=== PATIENT | male | born 1980 | race Caucasian/White ===

== ENCOUNTER 2018-01-11 07:40 | Emergency (ER) | payer OTHER ==
--- NOTE | 2018-01-11 08:00 | EDPHY ---
H & P Stated Complaint: SOB Time Seen by Provider: 01/11/18 07:48 HPI/ROS: CHIEF COMPLAINT: Dyspnea HISTORY OF PRESENT ILLNESS: The patient has a history of thromboembolic disorder and ulcerative colitis. The patient is chronically anticoagulated but recently was bridged with Lovenox for colectomy week ago. The patient resumed his Pradaxa on Thursday. The patient has had 2 days of dyspnea. He denies pleuritic chest pain but given his history was referred to the ED for evaluation of possible pulmonary embolism. The patient denies asymmetric calf pain or swelling. The patient denies fever. The patient describes typical postoperative abdominal pain. REVIEW OF SYSTEMS: A comprehensive 10 point review of systems is otherwise negative aside from elements mentioned in the history of present illness. Source: Patient - Personal History Current Tetanus/Diphtheria Vaccine: Yes - Medical/Surgical History Hx Asthma: No Hx Chronic Respiratory Disease: No Hx Diabetes: No Hx Cardiac Disease: No Hx Renal Disease: No Hx Cirrhosis: No Hx Alcoholism: No Hx HIV/AIDS: No Hx Splenectomy or Spleen Trauma: No Other PMH: ANTI CARDIO LIPID SYNDROME, PROTHOMBIN GENE MUTATION, PE, COLOECTOMY - Social History Smoking Status: Never smoked - Physical Exam Exam: General Appearance: Alert, no distress Eyes: Pupils equal and round no pallor or injection ENT, Mouth: Mucous membranes moist Respiratory: There are no retractions, lungs are clear to auscultation Cardiovascular: Regular rate and rhythm Gastrointestinal: Surgical incisions are clean dry and intact Neurological: A&O, normal motor function, normal sensory exam, normal cranial nerves Skin: Warm and dry, no rashes Musculoskeletal: Neck is supple nontender Extremities: symmetrical, full range of motion, no clinical evidence of DVT Constitutional: Initial Vital Signs Temperature (C) 36.6 C 01/11/18 07:48 Heart Rate 93 01/11/18 07:48 Respiratory Rate 16 01/11/18 07:48 Blood Pressure 124/91 H 01/11/18 07:48 O2 Sat (%) 99 01/11/18 07:48 O2 Delivery Mode Room Air Allergies/Adverse Reactions: No Known Allergies Allergy (Unverified 01/11/18 07:47) Home Medications: Medication Instructions Recorded Pradaxa 01/11/18 Medical Decision Making - Diagnostics Imaging Results: CT angiogram chest: Images reviewed by myself and discussed with radiologist Dr. Jonah Helgans. Negative for PE, dissection, pneumonia or effusion. ED Course/Re-evaluation: The patient presents to the ED for evaluation of mild dyspnea. The patient was taken for CT pulmonary angiogram which demonstrates no evidence of a PE, pneumonia or effusion. Patient has no evidence of renal failure or critical anemia noted on his i-STAT. Vital signs in the ED are normal. This certainly possible the patient may be experiencing a very mild viral bronchitis. The patient will be given a albuterol inhaler to go home with. He is advised to return to the ED for markedly worsening symptoms or other concerns. Differential Diagnosis: Differential diagnosis considered includes asthma, bronchitis, pneumonia, pulmonary embolism, anemia, renal failure - Data Points Laboratory Results: 01/11/18 08:08 POC Hgb 12.6 gm/dL L gm/dL (13.7-17.5) POC Hct 37 % L % (40-51) POC Sodium 139 mEq/L mEq/L (135-145) POC Potassium 3.8 mEq/L mEq/L (3.3-5.0) POC Chloride 103 mEq/L mEq/L (97-110) POC BUN 13 mg/dL mg/dL (7-23) POC Creatinine 0.7 mg/dL mg/dL (0.7-1.3) POC Glucose 89 mg/dL mg/dL (70-100) Point of Care Test Results: Chemistry 01/11/18 08:08 POC Sodium 139 mEq/L mEq/L (135-145) POC Potassium 3.8 mEq/L mEq/L (3.3-5.0) POC Chloride 103 mEq/L mEq/L (97-110) POC BUN 13 mg/dL mg/dL (7-23) POC Creatinine 0.7 mg/dL mg/dL (0.7-1.3) POC Glucose 89 mg/dL mg/dL (70-100) ISTAT H&H 01/11/18 08:08 POC Hgb 12.6 gm/dL L gm/dL (13.7-17.5) POC Hct 37 % L % (40-51) Departure - Departure Disposition: Home, Routine, Self-Care Clinical Impression: Dyspnea Condition: Good Instructions: Dyspnea (ED) Additional Instructions: 1. Please use albuterol inhaler as needed for mild shortness of breath. 2. Return to the ED for markedly worsening symptoms or other concerns. 3. Your CT scan demonstrates no evidence of a blood clot, pneumonia or other pulmonary condition. Referrals: Maricarmen Leon MD [Primary Care Provider] - As per Instructions
[2018-01-11 08:11] VITALS: BP 123/76
[2018-01-11] MEDS ORDERED: IOPAMIDOL (ISOVUE 370) 100 ML BTL IV ONE (08:29)
== END 2018-01-11 09:39 | disposition home or self-care (01) ==
DX: R06.00 Dyspnea, unspecified (principal); Z86.718 Personal history of other venous thrombosis and embolism; Z90.49 Acquired absence of other specified parts of digestive tract; Z79.01 Long term (current) use of anticoagulants
CPT/HCPCS: 82435-PO; 82565-PO; 82947-PO; 84132-PO; 84295-PO; 84520-PO; 85014-PO; Q9967

== ENCOUNTER 2018-01-12 00:50 | Emergency (ER) | payer OTHER ==
[2018-01-12 00:55] VITALS: BP 105/71
--- NOTE | 2018-01-12 01:01 | EDPHY ---
H & P Stated Complaint: itching/swelling to penis since yesterday Time Seen by Provider: 01/12/18 01:01 HPI/ROS: HPI CHIEF COMPLAINT: Itching, redness, swelling to the head of the penis. HISTORY OF PRESENT ILLNESS: 37-year-old male, presents emergency room the noticed progressively worsening itching, redness, exam is mild swelling to the head of his penis the nose over the last 24-48 hours. He just had a recent colectomy performed at [facility]. He was in the hospital for 5 days. He was unable to shower for 4 days. He denies any urinary symptoms, denies dysuria, denies urinary frequency. Denies back pain, denies abdominal pain, denies fever. He does have some mild pain around his new ileostomy site. His main complaint is some mild redness, itching to the glans of his penis. Past Medical History: Ulcerative colitis Past Surgical History: This recent colectomy Social History: Denies drugs alcohol tobacco Family History: Noncontributory ROS REVIEW OF SYSTEMS: 10 Systems were reviewed and negative with the exception of the elements mentioned in the history of present illness. Exam Constitutional triage nursing summary reviewed, vital signs reviewed, awake/ alert. Eyes normal conjunctivae and sclera, EOMI, PERRLA. HENT normal inspection, atraumatic, moist mucus membranes, no epistaxis, neck supple/ no meningismus, no raccoon eyes. Respiratory clear to auscultation bilaterally, normal breath sounds, no respiratory distress, no wheezing. Cardiovascular rate normal, regular rhythm, no murmur, no edema, distal pulses normal. Gastrointestinal soft, non-tender, no rebound, no guarding, normal bowel sounds, no distension, no pulsatile mass. Genitourinary exam: Circumcised male, glans of the penis appears slightly erythematous, no significant swelling, no drainage or discharge, patient complains of itching. Shift of the penis normal. Urethral meatus is normal. Testicular region normal. Musculoskeletal no midline vertebral tenderness, full range of motion, no calf swelling, no tenderness of extremities, no meningismus, good pulses, neurovascularly intact. Skin pink, warm, & dry, no rash, skin atraumatic. Neurologic awake, alert and oriented x 3, AAOx3, moves all 4 extremities equally, motor intact, sensory intact, CN II-XII intact, normal cerebellar, normal vision, normal speech. Psychiatric normal mood/affect. Heme/Lymph/Immune no lymphadenopathy. Differential Diagnosis: Includes but is not limited to in a particular order balanitis, fungal infection, cellulitis Medical Decision Making: Plan for this patient will treat for fungal infection. Re-evaluation: Recommend the patient that he keep the area clean, warm soaks, and dried off completely. Additionally clotrimazole cream. Additionally return emergency room if there is worsening pain, swelling, redness, fever. I believe this to be a fungal infection of the glans of his penis. No evidence of cellulitis or abscess on exam. - Personal History Current Tetanus/Diphtheria Vaccine: Yes - Medical/Surgical History Hx Asthma: No Hx Chronic Respiratory Disease: No Hx Diabetes: No Hx Cardiac Disease: No Hx Renal Disease: No Hx Cirrhosis: No Hx Alcoholism: No Hx HIV/AIDS: No Hx Splenectomy or Spleen Trauma: No Other PMH: ANTI CARDIO LIPID SYNDROME, PROTHOMBIN GENE MUTATION, PE, COLOECTOMY - Social History Smoking Status: Never smoked Constitutional: Initial Vital Signs Temperature (C) 37.1 C 01/12/18 00:52 Heart Rate 99 01/12/18 00:52 Respiratory Rate 16 01/12/18 00:52 Blood Pressure 105/71 01/12/18 00:52 O2 Sat (%) 97 01/12/18 00:52 O2 Delivery Mode Room Air Allergies/Adverse Reactions: No Known Allergies Allergy (Verified 01/12/18 00:54) Home Medications: Medication Instructions Recorded Albuterol [Proventil Inhaler HFA 1 - 2 puffs IH Q4H #1 mdi 01/11/18 (*)] Pradaxa 01/11/18 Clotrimazole 1% [Lotrimin 1%] 12 gm TP BID #1 cream 01/12/18 Departure - Departure Disposition: Home, Routine, Self-Care Clinical Impression: Balanitis Condition: Good Instructions: Balanitis (ED) Additional Instructions: 1. Medication as prescribed 2. Follow up with her primary care doctor or urologist. 3. Return if worsening symptoms including worsening pain, swelling, fever. Referrals: Maricarmen Leon MD [Primary Care Provider] - As per Instructions Kerwin Oleary MD [Medical Doctor] - As per Instructions Prescriptions: Clotrimazole 1% [Lotrimin 1%] 12 gm TP BID #1 cream
== END 2018-01-12 01:30 | disposition home or self-care (01) ==
DX: N48.1 Balanitis (principal); Z90.49 Acquired absence of other specified parts of digestive tract

== ENCOUNTER 2018-06-19 09:02 | Inpatient (IN) | payer OTHER ==
[2018-06-19] MEDS ORDERED: NS 1,000 ML IV ONE ×2 (09:05→22:28)
[2018-06-19] MEDS ORDERED: HYDROmorphONE/DILAUDID 2 MG/ML INJ IVP ONE ×4 (09:05→12:57)
--- NOTE | 2018-06-19 09:07 | EDPHY ---
HPI/HX/ROS/PE/MDM Narrative: CHIEF COMPLAINT: Back pain HPI: The patient is a 38-year-old male with a history of ulcerative colitis and hyper coagulability status post a PE approximately 10 years ago. The patient states he has been in his usual state of health and awoke normally this morning. When he tried to get out of bed, he experienced severe pain in his low back, neck and thoracic spine. He describes this as excruciating and his states that he was in bed desperately trying to find a comfortable position with a high heart rate and breathing difficulties. The patient denies any recent fall or injury. Patient reports severe pain in this area as well as pain with any movement of his trunk including his arms. He states this feels somewhat similar to his prior pulmonary embolus. The patient is on Pradaxa. He received ketamine in route for pain. He states he has had a mild cold described as a runny nose without fever over the last several days. REVIEW OF SYSTEMS: Aside from elements discussed in the HPI, a comprehensive 10-point review of systems was reviewed and is negative. PMH: Includes prothrombin gene mutation, history of pulmonary embolus. History of ulcerative colitis status post 2 colectomies with current colostomy. SOCIAL HISTORY: . Denies drug abuse. PHYSICAL EXAM: General:Patient is alert, in no acute distress. He appears mildly sedated consistent with ketamine but alert. ENT:Eyes are normal to inspection. ENT inspection normal. Neck: Normal inspection. Full range of motion. Respiratory:No respiratory distress. Breath sounds normal bilaterally. Cardiovascular: Regular rate and rhythm. Strong peripheral pulses. Normal cap refill. Abdomen:The abdomen is nontender to palpation. There are no peritoneal signs. There are normal bowel sounds. Back: Normal to inspection. Diffuse tenderness to palpation of entire thoracic spine which seemed very hypersensitive. Severe pain is listed with even movement of right arm. Skin: Normal color. No rash. Warm and dry. Extremities: Normal appearance. Full range of motion. Neuro: Oriented x3. Patient states movement of bilateral arms causes excruciating pain, so unable to fully cooperate with detailed neuro exam. Denies numbness or hand weakness. MDM: This was a very unusual and complicated case. The patient apparently awoke this morning with spontaneous severe pain throughout his entire back which somewhat resembled prior PE. Initial workup revealed extremely high WBC suggesting possible infectious etiology. Given unusual story and acuity of complaints, I expanded workup to include CT of the entire spine as well as chest and abdomen, primarily looking for PE, bleeding or infectious source. This surprisingly revealed multiple acute fractures, including right acetabulum and pelvis, as well as thoracic spine, but not c-spine. Immediately upon receiving these results I spoke to the patient and his and re-inquired about possible trauma. Despite extensive questioning, they adamantly deny any possibility of recent fall or trauma, and question whether these fractures are either old or could be caused by repetitive stress over time. I informed them that the injury pattern strongly suggests recent trauma but they are unaware of how this could be the case. I consulted Dr. Nelson from Orthopedics as well as Dr. Barajas from the hospitalist service. I would typically consult Trauma Surgery for a similar case, but patient's adamant denial of any recent trauma places me in a confusing situation. Dr. Nelson was able to elicit bilateral upper extremity weakness on his exam so I have ordered MRI of the cervical and thoracic spine. Given elevated WBC and pain, I think we need to exclude discitis etc. Patient admitted to hospitalist service with these results still pending. - Data Points Imaging Results: Imaging Impressions Chest X-Ray 06/19/18 09:05 Impression: Negative. Laboratory Results: Laboratory Results 06/19/18 09:05 06/19/18 09:05 06/19/18 06/19/18 06/19/18 09:08 09:08 09:05 WBC RBC Hgb POC Hgb 14.3 gm/dL gm/dL (13.7-17.5) Hct POC Hct 42 % % (40-51) MCV MCH MCHC RDW Plt Count MPV Neut % (Auto) Lymph % (Auto) Phelps % (Auto) Eos % (Auto) Baso % (Auto) Nucleat RBC Rel Count Absolute Neuts (auto) Absolute Lymphs (auto) Absolute Monos (auto) Absolute Eos (auto) Absolute Basos (auto) Absolute Nucleated RBC Immature Gran % Immature Gran # Platelet Estimate POC Sodium 142 mEq/L mEq/L (135-145) Sodium 138 mEq/L mEq/L (135-145) POC Potassium 3.8 mEq/L mEq/L (3.3-5.0) Potassium 4.3 mEq/L mEq/L (3.5-5.2) POC Chloride 106 mEq/L mEq/L (97-110) Chloride 105 mEq/L mEq/L (97-110) Carbon Dioxide 18 mEq/l L mEq/l (22-31) POC Total CO2 17 mEq/L L mEq/L (22-31) Anion Gap 15 mEq/L H mEq/L (6-14) POC BUN 8 mg/dL mg/dL (7-23) BUN 10 mg/dL mg/dL (7-23) Creatinine 1.0 mg/dL mg/dL (0.7-1.3) POC Creatinine 1.0 mg/dL mg/dL (0.7-1.3) Estimated GFR > 60 Glucose 125 mg/dL H mg/dL (70-100) POC Glucose 135 mg/dL H mg/dL (70-100) Calcium 9.7 mg/dL mg/dL (8.5-10.4) POC Troponin I 0.03 ng/mL ng/mL (0.00-0.08) 06/19/18 09:05 WBC 24.59 10^3/uL H 10^3/uL (3.80-9.50) RBC 5.49 10^6/uL 10^6/uL (4.40-6.38) Hgb 12.3 g/dL L g/dL (13.7-17.5) POC Hgb Hct 40.8 % % (40.0-51.0) POC Hct MCV 74.3 fL L fL (81.5-99.8) MCH 22.4 pg L pg (27.9-34.1) MCHC 30.1 g/dL L g/dL (32.4-36.7) RDW 15.6 % H % (11.5-15.2) Plt Count 321 10^3/uL 10^3/uL (150-400) MPV 10.4 fL fL (8.7-11.7) Neut % (Auto) Pending Lymph % (Auto) Pending Phelps % (Auto) Pending Eos % (Auto) Pending Baso % (Auto) Pending Nucleat RBC Rel Count Pending Absolute Neuts (auto) Pending Absolute Lymphs (auto) Pending Absolute Monos (auto) Pending Absolute Eos (auto) Pending Absolute Basos (auto) Pending Absolute Nucleated RBC Pending Immature Gran % Pending Immature Gran # Pending Platelet Estimate Pending POC Sodium Sodium POC Potassium Potassium POC Chloride Chloride Carbon Dioxide POC Total CO2 Anion Gap POC BUN BUN Creatinine POC Creatinine Estimated GFR Glucose POC Glucose Calcium POC Troponin I Medications Given: Discontinued Medications Hydromorphone HCl (Dilaudid) 1 mg IVP EDNOW ONE Stop: 06/19/18 09:06 Last Admin: 06/19/18 09:13 Dose: 1 mg Sodium Chloride (Ns) 1,000 mls @ 0 mls/hr IV EDNOW ONE; Wide Open PRN Reason: Protocol Stop: 06/19/18 09:06 Last Admin: 06/19/18 09:13 Dose: 1,000 mls Point of Care Test Results: Chemistry 06/19/18 06/19/18 09:08 09:08 POC Sodium 142 mEq/L mEq/L (135-145) POC Potassium 3.8 mEq/L mEq/L (3.3-5.0) POC Chloride 106 mEq/L mEq/L (97-110) POC Total CO2 17 mEq/L L mEq/L (22-31) POC BUN 8 mg/dL mg/dL (7-23) POC Creatinine 1.0 mg/dL mg/dL (0.7-1.3) POC Glucose 135 mg/dL H mg/dL (70-100) POC Troponin I 0.03 ng/mL ng/mL (0.00-0.08) ISTAT H&H 06/19/18 09:08 POC Hgb 14.3 gm/dL gm/dL (13.7-17.5) POC Hct 42 % % (40-51) General Initial Vital Signs: Initial Vital Signs Temperature (C) 36.9 C 06/19/18 09:05 Heart Rate 110 H 06/19/18 09:05 Respiratory Rate 18 06/19/18 09:05 Blood Pressure 109/70 06/19/18 09:05 O2 Sat (%) 89 L 06/19/18 09:05 O2 Delivery Mode Nasal Cannula O2 (L/minute) 2 Allergies/Adverse Reactions: No Known Allergies Allergy (Verified 06/19/18 09:05) Home Medications: Medication Instructions Recorded Dabigatran Etexilate Mesylate 75 mg PO BID 01/11/18 [Pradaxa] Acetaminophen [Tylenol 325mg (*)] 650 mg PO Q6 PRN 06/19/18 Albuterol [Proventil Inhaler HFA 1 - 2 puffs IH Q4H PRN 06/19/18 (*)] Multivitamins [Multivitamin (*)] 1 each PO DAILY 06/19/18 Departure - Departure Disposition: [facility]
[2018-06-19] MEDS ORDERED: IOPAMIDOL (ISOVUE 370) 100 ML BTL IV ONE (10:11)
[2018-06-19] MEDS ORDERED: ALBUTEROL 60 PUFFS/8 GM MDI IH PRN (14:44)
[2018-06-19] MEDS ORDERED: ACETAMINOPHEN 325 MG TAB PO PRN ×2 (14:44→14:46)
[2018-06-19] MEDS ORDERED: ONDANSETRON 4 MG/2 ML VIAL IVP PRN (14:46)
[2018-06-19] MEDS ORDERED: ONDANSETRON DISINTEGRATING 4 MG TAB PO PRN (14:46)
--- NOTE | 2018-06-19 14:48 | CPEKG ---
Test Reason : OPEN Blood Pressure : / mmHG Vent. Rate : 095 BPM Atrial Rate : 095 BPM P-R Int : 133 ms QRS Dur : 091 ms QT Int : 338 ms P-R-T Axes : 033 -18 007 degrees QTc Int : 425 ms Sinus rhythm Borderline left axis deviation Confirmed by Elias Sheldon ([id number]) on 06/19/2018 2:48:14 PM Referred By: Elias Shledon Confirmed By:Elias Sheldon
[2018-06-19] MEDS ORDERED: NS 1,000 ML IV SCH (15:00)
[2018-06-19] MEDS: OXYCODONE/APAP 5/325 TAB PO PRN (15:21)
--- NOTE | 2018-06-19 16:03 | GHP ---
[f rep st] HISTORY AND PHYSICAL DATE OF ADMISSION: 06/19/2018 The patient is a 38-year-old gentleman a history of ulcerative colitis status post total colectomy th is fall with ostomy placement, as well as history of pulmonary embolism secondary to prothrombin gene mutation, who presents to the hospital with leg pain. 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 In fact, yesterday was his first day doing it. He has an uppe r respiratory infection, he presumes is secondary to his children. He took some NyQuil overnight. Dieter carranza woke up this morning and had excruciating pain. At first, it was unclear as to what had happened, but after some repeated questions, it sounds like his heard a bump up stairs and found him backw ards in the bed, and the assumption is that he had made a fall. The patient does not have a previous diagnosis of osteoporosis, although he has had a bone mineral de nsity study in [place] in the past, a couple of years ago. He was not prescribed medicines for this. He had ulcerative colitis for about 10 years prior to his colectomy and suspects that he had about 8 years of that he was actually on steroid, sometimes as high as 80 mg of prednisone a day. He has not had drenching night sweats or fever. He has some pain limiting his ability to abduct his arms. He does not use injection drugs. He has not had a rash on his skin. He has not had bowel or bladder incontinence but he has an ostomy, and he has not had bladder incontinence. REVIEW OF SYSTEMS: Complete 10-point review of systems conducted, negative except as noted in the HP I. PAST MEDICAL HISTORY: 1. Prothrombin gene mutation. 2. PE x1. 3. Total colectomy for ulcerative colitis. 4. Ulcerative colitis. 5. Suspected adrenal insufficiency. 6. Osteoporosis. ALLERGIES: No known drug allergies. MEDICATIONS: Pradaxa, Tylenol, albuterol. SOCIAL HISTORY: Originally from [place]. Rare alcohol. No tobacco. PHYSICAL EXAM: VITAL SIGNS: Temp 37.7, blood pressure 112/72, pulse 93, breathing 16 times a minute , 98% on 2 L. GENERAL: No acute distress. HEENT: Sclerae anicteric. Oropharynx clear. Mucous me mbranes moist. NECK: Supple. No lymphadenopathy or JVD. LUNGS: Clear to auscultation bilaterally . HEART: S1, S2. ABDOMEN: Soft, nontender. There is an ostomy that is clean, dry, and intact. T he bag is opaque. I cannot see a stool. EXTREMITIES: Lower extremities without edema. Calves nont perico. SKIN: Without rash. NEUROLOGIC: He has weakness with abduction, it is unclear if it is flores ited by pain. It seems a little bit more like weakness. Vitals addendum: The patient is now afebrile at 38.4. LABS: White count 24.6, hematocrit 40.8, MCV is low at 74.3, platelets are 242. Sodium 138, potassi um 4.3, chloride 105, bicarb 18, anion gap slightly elevated at 15, BUN 10, creatinine 1.0, glucose 1 25. Influenza negative. CTA shows no PE, possible early basilar pneumonia, left greater than right versus dependent lung greco ges. Left lower ground-glass nodule. Abdominal CT is unremarkable. He has a renal cyst and evidenc e of an ostomy. Chest x-ray interpreted by me shows clear lungs. Cervical spine CT, nothing acute in the cervical spine, indeterminate T4-T5 compression fractures. I discussed the case with Dr. Patel Sheldon. ASSESSMENT/PLAN: A 38-year-old gentleman presents with a fall, acetabular fracture, pubic ramus frac ture, fever, possible pneumonia, and upper extremity weakness. 1. Fever and upper extremity weakness. This is concerning for possible epidural abscess versus disk itis. The patient looks a little better than these patients look, but a CT with and without contrast has been ordered and I will have Neurosurgery see him. 2. T4-T5 compression fractures. These are acute and painful. Will have Neurosurgery see him. 3. Question pneumonia. I do not believe this patient has pneumonia. Fever is noted. Will send an upper respiratory viral panel and follow. 4. History of pulmonary embolism. We are going to hold his Pradaxa in case he needs a needle based procedure. 5. Acetabular fracture. These are typically nonoperative. He is seen by Orthopedics. 6. Osteoporosis. He has osteoporosis, history of calcium, vitamin D, TSH, testosterone, PTH. 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 7. Question sepsis. I will check a lactate given his fever. 8. Disposition. Inpatient status. 9. Microcytic anemia. Will check iron studies. 10. Prophylaxis. I assume we will be resuming his Pradaxa. Otherwise, will have to think about wilfredo ous thromboembolism prophylaxis. Nothing overnight. /[id number]/MODL
--- NOTE | 2018-06-19 16:26 | PDMN ---
Medical Necessity Medical necessity: MCG M63 Back Pain, A-1 day: 38 yo w/ leg/back pain s/p fall - eval reveals acetabular fx, pubic ramus fx, T4-T5 compression fx, fever, possible pneumonia and upper extremity weakness. Concern for possible epidural abscess vs diskitis. Neurosurg consult ordered. Pt w/ WBC 24, tachy, fever, hypoxic 89% RA, placed on 2L to keep O2 sats>90%. Resp panel pending. Anticipate>2MN for ongoing monitoring and tx of the above. IP status w/ med nec for back pain w/ suspected spinal infection, neurologic abnormalities, additional medical issues and comorbidities. Hx Prothrombin gene mutation, PE, total colectomy w/ ostomy placement last year for ulcerative colitis, suspected adrenal insufficiency, osteoporosis
[2018-06-19] MEDS ORDERED: HYDROmorphONE/DILAUDID 1 MG/ML INJ IVP ONE (16:29)
[2018-06-19] MEDS ORDERED: GADOBUTROL 10 ML VIAL IVP ONE (16:54)
[2018-06-19] MEDS: CHOLECALCIFEROL VIT D3 2,000 UNITS TAB/CAP PO SCH (18:00)
[2018-06-19] MEDS: HYDROmorphONE/DILAUDID 1 MG/ML INJ IVP PRN (18:47)
[2018-06-19] MEDS ORDERED: KETOROLAC 15 MG/1 ML SDV IVP ONE (21:48)
--- NOTE | 2018-06-19 21:51 | HOSPPROG ---
Hospitalist Progress Note Assessment/Plan: Patient seen after imaging - all was discussed wtih him. He is febrile again. Coronavirus + on resp PCR will give a dose of Toradol for fever and myalgias; risks and benefits discussed with patient including bleeding on pradaxa Objective: Vital Signs Temp Pulse Resp BP Pulse Ox 38.0 C 98 16 83/58 L 96 06/19/18 20:00 06/19/18 20:00 06/19/18 20:00 06/19/18 20:00 06/19/18 20:00 Microbiology 06/19/18 15:25 Respiratory Panel (PCR) - Final Nasal, Sinus - Swab Coronavirus 229E Detected 06/18/18 06/19/18 06/20/18 05:59 05:59 06:59 Intake Total 0 Balance 0 ICD10 Worksheet Patient Problems: Problems Problem Status Onset Fever Acute
[2018-06-20] MEDS: OXYCODONE/APAP 5/325 TAB PO PRN ×4 (00:29→18:17)
[2018-06-20] MEDS: HYDROmorphONE/DILAUDID 1 MG/ML INJ IVP PRN ×3 (03:46→19:51)
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
[2018-06-20 05:36] LABS: PLATELET COUNT 190 10^3/uL (150-400)
[2018-06-20] MEDS: CHOLECALCIFEROL VIT D3 2,000 UNITS TAB/CAP PO SCH (08:13)
[2018-06-20] MEDS: MULTIVITAMINS 1 EACH TAB PO SCH (08:15)
--- NOTE | 2018-06-20 10:45 | HOSPPROG ---
Hospitalist Progress Note Assessment/Plan: Fever likely 2/2 viral URI - no e/o epidural abscess on MRI. CXR w/o infiltrate (pers reviewed/interpreted). CTA showed possible early left basilar PNA, no PE. -check PCT -cont to observe off atbx -supportive care Hypoxemia 2/2 above - 1 LPM -wean O2 as able Acetabular fracture - discussed with Dr. Nelson, tx is non-operative, NWB x3 months. He is at risk for arthritis long-term. C5-6 disc herniation with cord compression with UE weakness - neurosurgery to see, discussed with Nuris HIDALGO Osteoporosis - likely 2/2 senior living steroid use, note T4-5 and L4 compression fracture - as above, neurosurgery will evaulate -recommend outpt podiatrist assistant PE 2/2 prothrombin gene mutation - holding pradaxa as may warrant procedure given above -resume pradaxa when clear no procedures planned UC s/p colectomy - colostomy care Microcytic anemia - no e/o active bleeding, iron stores low, could be residual from symptomatic UC, which has since resolved. Also possibly dilutional component. -pradaxa currently held -start oral iron -hemoccult stool, outpt GI f/u -follow daily H&H Full code Dispo - cont inpt Subjective: PT complains of pain in arm and hip. Unable to lift his arms b/l. THinks he fell out of bed, had taken benadryl to sleep, heard a thud, but he doesn't recall what happened, woke up tangled on floor. He also developed a fever. Imaging negative for epidural abscess, he has a viral URI. No cough. No fevers overnight. NO CP or SOB. Objective: Vital Signs Temp Pulse Resp BP Pulse Ox 36.8 C 90 16 98/55 L 97 06/20/18 07:50 06/20/18 07:50 06/20/18 07:50 06/20/18 07:50 06/20/18 07:50 Microbiology 06/19/18 15:25 Respiratory Panel (PCR) - Final Nasal, Sinus - Swab Coronavirus 229E Detected Laboratory Results 06/20/18 04:52 06/20/18 04:52 06/19/18 06/20/18 06/21/18 04:59 05:59 05:59 Intake Total 1000 Output Total Balance 1000 - Physical Exam Constitutional: no apparent distress Eyes: PERRL Ears, Nose, Mouth, Throat: moist mucous membranes Cardiovascular: regular rate and rhythym Respiratory: no respiratory distress, clear to auscultation Gastrointestinal: normoactive bowel sounds, soft, non-tender abdomen Skin: warm Musculoskeletal: other (b/l proximal UE weakness c/w C5-6 disc ) Neurologic: AAOx3 Psychiatric: interacting appropriately ICD10 Worksheet Patient Problems: Problems Problem Status Onset Fever Acute
--- NOTE | 2018-06-20 12:01 | ASMTCMCOM ---
CM Note CM Note Notes: Patient chart reviewed for discharge planning purposes. 38 year old male with history of ulcerative colitis. Questionable s/p fall and left leg pain. Lives with . CM to follow for needs. Plan: TBD Date Signed: 06/20/2018 12:00 PM Electronically Signed By:Ruth Napoles RN
--- NOTE | 2018-06-20 12:20 | NEUSURGPN ---
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 Recommend arterial and central line placement. -Discussed plan with patient and , they both agree with the plan and all questions answered -Will start Gabapentin for neuropathic pain Patient discussed with Dr Dukes as well Subjective: Unable to raise arms, bilateral arm pain Objective: AxOx4 5/5 BLE 2/5 BUE Deltoids, biceps 4/5 bilateral check airman 4/5 bilateral intrinsics Positive hoffmans bilateral BR, knee, ankle reflexes 4+ Neuro Check Frequency: per routine Urinary Catheter in Place: No - Physician Discussed Patient with Dr.: Dukes Neurosurgery Physical Exam - Vitals, I&O, Labs I and O 06/19/18 06/20/18 06/21/18 04:59 05:59 05:59 Intake Total 1000 Output Total 400 Balance 600 Weight Intake: Oral (ml) IV Intake (ml) 1000 Output: Urine (ml) 200 Urinal 200 Liquid Stool (ml) 200 Colostomy 200 Other: Intake Quantity Sufficient Number of Voids Urinal 1 Microbiology 06/19/18 15:25 Respiratory Panel (PCR) - Final Nasal, Sinus - Swab Coronavirus 229E Detected Vital Signs Temp Pulse Resp BP Pulse Ox 36.9 C 97 16 88/49 L 97 06/20/18 12:00 06/20/18 12:00 06/20/18 12:00 06/20/18 12:00 06/20/18 12:00 Laboratory Results 06/20/18 04:52 06/20/18 04:52 ICD10 Worksheet Patient Problems: Problems Problem Status Onset Fever Acute
[2018-06-20] MEDS: FERROUS SULFATE 325 MG TAB PO SCH (12:25)
--- NOTE | 2018-06-20 13:36 | SOAPPROG ---
SOAP Progress Note Assessment/Plan: Assessment:R acetabular fx -etiology and mechanism still unclear -will be treated for central cord syndrome by nsgy team Plan: -strict NWB RLE -PT/OT -pain ctrl -DVT prophy -he should f/u with me 2-3 wks after discharge 06/20/18 13:35 Subjective: R hip pain at baseline. Seen by nsgy this am. Objective: Vital Signs Temp Pulse Resp BP Pulse Ox 36.9 C 97 16 88/49 L 97 06/20/18 12:00 06/20/18 12:00 06/20/18 12:00 06/20/18 12:00 06/20/18 12:00 Microbiology 06/19/18 15:25 Respiratory Panel (PCR) - Final Nasal, Sinus - Swab Coronavirus 229E Detected Laboratory Results 06/20/18 04:52 06/20/18 04:52 06/19/18 06/20/18 06/21/18 04:59 05:59 05:59 Intake Total 1000 Output Total 400 Balance 600 RLE -pain with log roll ICD10 Worksheet Patient Problems: Problems Problem Status Onset Fever Acute
[2018-06-20] MEDS: GABAPENTIN 300 MG CAP PO SCH ×3 (14:57→21:38)
[2018-06-20] MEDS: ACETAMINOPHEN 500 MG TAB PO SCH ×2 (14:57→21:37)
--- NOTE | 2018-06-20 15:05 | GPN ---
[f rep st] PROCEDURE NOTE DATE OF PROCEDURE: 06/20/2018 ANESTHESIA: Local. PREPROCEDURE DIAGNOSIS: Cord compression requiring pressors. POSTPROCEDURE DIAGNOSIS: Cord compression requiring pressors. NAME OF PROCEDURE: Left radial arterial line placement. ESTIMATED BLOOD LOSS: 5 cc. SPECIMENS: None. INDICATIONS: Tano Briggs is a 38-year-old who is requiring pressors for a central cord. DESCRIPTION OF PROCEDURE: The patient was in the ICU. I tried to access the right radial artery, even under ultrasound guidance on the right wrist. I did access it, but was unable to thread the wire easily. I then moved to the left wrist and prepped this. I accessed the artery on the second attempt, with pulsatile return of blood flow. I threaded the wire easily. I passed the catheter over the wire and removed the wire. This was connected to the arterial line with excellent waveform and sutured into place. A sterile dressing was applied. /[id number]/MODL MTDD
[2018-06-20] MEDS: NOREPINEPHRINE BITARTRATE 4 MG in NS 500 ML IV SCH ×2 (16:00→18:23)
--- NOTE | 2018-06-20 20:56 | GCON ---
[f rep st] CONSULTATION INPATIENT CONSULTATION DATE OF CONSULTATION: 06/20/2018 CHIEF COMPLAINT: Bilateral upper extremity weakness, right leg pain. 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 The patient also has a history of a pulmonary embolism just secondary to a prothrombin gene mutation. The patient recently changed his shift at his work and took some NyQuil to sleep on Thursday night. Patient reportedly fell out of bed, where his found him on the floor, got up and got himself back into bed, but was experiencing terrible pain. Patient presented to the emergency room with bilateral upper extremity weakness as well as low back and right leg pain. The patient underwent imaging of the thoracic and cervical spine as well as CT of the abdomen, which showed a compression fracture at T4 and T5 and L4. Currently the patient complains of acute weakness in his bilateral upper extremities, mostly affecting his deltoids and biceps, with bilateral equal pain in his deltoids. The patient states he had no difficulty with walking or balance prior to being placed on nonweightbearing for right acetabular fracture finding. The patient denies any lower extremity symptoms other than some pain in his right leg. Denies any changes in his bladder habits. The patient has an ostomy in place. REVIEW OF SYSTEMS: A 10-point review of systems was performed and negative aside from what was mentioned in HPI. PAST MEDICAL HISTORY: 1. Prothrombin gene mutation. 2. PE x1 ten years ago. 3. Ulcerative colitis. 4. Likely undiagnosed osteoporosis. ALLERGIES: Patient has no known drug allergies. MEDICATIONS: Pradaxa and a multivitamin. PAST SURGICAL HISTORY: Left hand surgery for fracture, vasectomy, left retinal detachment, and colectomy for ulcerative colitis and ostomy placement. FAMILY HISTORY: Both mother and father are alive. Mother has some mental illnesses including depression, bipolar, and schizophrenia. Father has arthritis. 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 He is with 1 child, age of 8. He has never used nicotine products. He rarely drinks alcohol and denies any illicit drug use. LABORATORY RESULTS: White blood cell count is 15.23, hematocrit 29.5, hemoglobin is 8.8, platelets are 190. Sodium 134, potassium 4.2, BUN 10, creatinine 0.8, glucose is 101. IMAGING: CT of the cervical spine performed on June 19, 2018, demonstrates nothing acute identified in the cervical spine with indeterminate age of a T4 and T5 compression fracture. CT of the abdomen from June 19, 2018, demonstrates no pulmonary embolic disease, possible early basilar pneumonia, left greater than right, versus dependent lung changes. Small left lower lobe nodule. Acute appearing multiple right acetabular nondisplaced fractures. The right femoral head and neck are intact and normally located. There is a nondisplaced vertical fracture coursing through the lateral most portion of the right superior pubic ramus. There is an old severe compression deformity of L4. MRI of the cervical spine performed on June 19, 2018, demonstrates a congenitally small canal with a central disk herniation at C5-6 with moderate canal stenosis and cord compression. At C4-5 there is mild diffuse disk bulge without richard herniation with borderline canal stenosis with effacement of the subarachnoid space and minimal flattening of the cervical cord. C6-7 there is a diffuse disk bulge eccentric toward the left resulting in mild canal stenosis , flattening of the cord, minimal impingement of the left lateral recess. MRI of the thoracic spine performed June 19, 2018, demonstrates no intrinsic abnormality of the thoracic cord, no significant disk herniation or cord compression. PHYSICAL EXAM: VITAL SIGNS: Blood pressure is 95/54, heart rate is 97, respiratory rate 16, oxygen saturations 97% on room air, temperature is 36.9 degrees Celsius. HEENT: Head is normocephalic and atraumatic. Pupils are equal, round, and reactive to light. EOMIs intact. Full visual balbuena by confrontation. RESPIRATORY: Deferred. CARDIAC: Deferred. ABDOMEN: Ostomy in place. GENITOURINARY: Deferred. RECTAL: Deferred. NEUROLOGIC: The patient is awake and alert and oriented to name, place, location, date, time, and situation. His memory is intact to immediate past and current events speech. No aphasia or dysphonia. Cranial nerves 2-12 are grossly intact. Motor: Patient has 5/5 strength in all muscle groups of the lower extremities to include iliopsoas, which is limited on the right due to fracture, which includes iliopsoas, quadriceps, hamstrings, plantar flexion, dorsiflexion, EHL testing. Left lower extremity is 5/5 throughout bilateral upper extremity motors. Patient has 2/5 in his bilateral deltoids and biceps, 4/5 bilateral respiratory therapy director strength, 4/5 bilateral intrinsic strength. The patient has wrist flexion and extension 4/5. The patient has positive Della sign bilaterally. Reflexes: Brachioradialis, knee jerk, and ankle jerks are 4+. Sensation is grossly intact to light touch through all dermatomal distributions of bilateral extremities. ASSESSMENT AND PLAN: The patient is a 38-year-old gentleman, who presented to the emergency room yesterday with bilateral upper extremity pain and weakness. The patient reportedly fell out of bed on Thursday night, was found on the floor by his , and at that time went back to bed. He has acture bilateral upper extremity weakness which is most pronounced in his biceps and triceps. MRI of the cervical spine demonstrates a congenitally narrow canal with moderate central stenosis at C5-6 and mild to moderate stenosis at C4-5. The patient has a right acetabular fracture, which does not require surgical intervention and has been placed in nonweightbearing status for the next few weeks. Patient has chronic appearing compression fractures involving the T4 and T5 and T11 vertebrae, as well as an old severe compression deformity of L4. The patient has mild lower back pain and right leg pain is likely attributed to his hip fracture. We do not recommend bracing at this time for these chronic appearing compression deformities. We recommend transferring the patient to the intensive care unit where he can have a central line placed and arterial line in an effort to keep maps greater than 85. The patient has signs and symptoms of a mild central cord syndrome. Dr. Dukes spoke with the patient and his about surgical intervention if needed. Surgery would entail a C4-5, C5-6 laminoplasty, which could also be done prophylactically due to his congenitally narrowed canal. We recommend continuing to hold Pradaxa until surgical plan is established. Okay to start deep venous thrombosis prophylaxis with subcu heparin, which I will order. The patient was discussed with Dr. Higthower as well as Orthopedics, who both agree with the plan. I discussed the plan and reviewed images with patient and his at the bedside, who both agree, and all questions were answered. The patient was seen and examined at the bedside by neurosurgical services on June 20, 2018, at 10:45 a.m. /[id number]/MODL MTDD
--- NOTE | 2018-06-20 21:06 | GCON ---
[f rep st] CONSULTATION PULMONARY CRITICAL CARE CONSULTATION DATE OF CONSULTATION: 06/20/2018 REASON FOR CONSULTATION: Intensive care unit evaluation and management of central cord compression. HISTORY: The patient is a very pleasant 38-year-old gentleman with a history of ulcerative colitis and chronic steroid therapy. He also has a history of pulmonary embolic disease secondary to a prothrombin gene mutation. He was admitted on 06/19. He apparently fell last night and awoke with significant pain. He came to the emergency department. He was found to have an acetabular and pelvic fracture as well as a fracture of the glenoid process of the right shoulder. More significant was neck pain and bilateral weakness of the upper extremities associated with congenital narrowing of his cervical canal and a herniated disk at C5-6 resulting in some cord compression. He was seen by Neurosurgery. They recommended admission to the intensive care unit, placement of an arterial line and central line for pressor therapy to keep mean arterial pressures 85 or above. An arterial line and central line have been placed. Norepinephrine has been started. The patient complains of bilateral upper extremity weakness. He is more limited on the right secondary to his fracture and pain, than he is on the left. He denies weakness, numbness or tingling of the lower extremities. He does have some pelvic pain on movement. PAST MEDICAL HISTORY: Remarkable for a long history of ulcerative colitis. He was on steroids for a number of years, and is osteoporotic secondary to that. He is status post total colectomy. He has a history of a prothrombin gene mutation, and was on Pradaxa prior to admission. There is also history of mild asthma, for which he takes albuterol. DRUG ALLERGIES: No known drug allergies. 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 Alcohol and tobacco are negative. FAMILY HISTORY: Noncontributory. REVIEW OF SYSTEMS: Negative, except as mentioned above. PHYSICAL EXAMINATION: GENERAL: Reveals a very pleasant gentleman who is lying in bed. He appears comfortable. VITAL SIGNS: Blood pressure is 150/65 with a MAP of 93. Pulse is 90, with sinus rhythm on the monitor. Oxygen is in place at 2 L. Respiratory rate is 16. He is afebrile. CVP is 7. HEENT: Unremarkable for lymphadenopathy or thyromegaly. CHEST: Clear bilaterally. HEART: Regular in rate and rhythm, without significant murmur or gallop. ABDOMEN: Soft, nontender. Bowel sounds are present. EXTREMITIES: Unremarkable for edema or cords. NEUROLOGIC: Examination is remarkable for upper extremity weakness. DATABASE: Multiple radiologic studies are as outlined above in the HPI. Laboratory: White blood cell count is 15,000. Hematocrit 29.5, down from 40, yesterday. Platelets are 190,000. Sodium is 134, potassium 4.2, BUN 10, with a creatinine of 0.8. Glucose is 101, calcium 7.7. Procalcitonin is mildly elevated at 0.5. Influenza A/B was negative. Stool for occult blood is negative. Respiratory panel was positive for coronavirus. ASSESSMENT: 1. Cord compression secondary to congenital narrowing and C5-6 disk herniation. Blood pressures are being driven up for mean arterial pressures greater than 85. Neurosurgery is following. Cervical surgery may or may not be needed per Neurosurgery. 2. Status post fall, with pelvic fracture and right shoulder fracture: This seems to be related to osteoporosis secondary to previous chronic steroid therapy. 3. History of ulcerative colitis, colectomy. 4. Anemia: He did drop his hematocrit from 40 to approximately 30. The reason for this is unclear, perhaps secondary to IV fluids and dilutional issues/ equilibration. There is no evidence of active bleeding. Hematocrit will be followed. 5. History of prothrombin gene mutation: He was on full-dose anticoagulation with Pradaxa. This is contraindicated currently. Subcu heparin is felt to be acceptable by Neurosurgery, and has been initiated. 6. History of mild asthma: No wheezing, no evidence of an exacerbation. PLAN AND RECOMMENDATIONS: Patient will be kept in the intensive care unit. Blood pressures will be followed. Norepinephrine will be continued for MAPs greater than 85. Appropriate pain control will be given. Prophylactic heparin will be continued. Albuterol can be used as needed. Laboratory will be followed. Further plans and recommendations will be made based on his progress over the next 12 to 24 hours. /[id number]/MODL and [id number]/MODL MTDD
--- NOTE | 2018-06-20 21:21 | GOP ---
[f rep st] OPERATIVE REPORT DATE OF OPERATION: 06/20/2018 SURGEON: Khadra Villarreal MD ANESTHESIA: Local. PREOPERATIVE DIAGNOSIS: Central cord requiring pressors. POSTOPERATIVE DIAGNOSIS: Central cord requiring pressors. PROCEDURE PERFORMED: Right ultrasound-guided internal jugular central line placement. FINDINGS: Central line in correct position. SPECIMENS: None. ESTIMATED BLOOD LOSS: 10 cc. INDICATIONS: The patient is a 38-year-old man with past medical history that is significant for ulcerative colitis and pulmonary embolism and he presented with leg pain. He now has difficulty moving his arms. Found to have possible central cord and central line was indicated. DESCRIPTION OF PROCEDURE: Patient was in the ICU. He was placed in the Trendelenburg position. Full barrier precautions were used. I used ultrasound to identify his right internal jugular vein which was compressible. I infiltrated the area with 1% lidocaine I accessed on the first attempt with dark return of blood flow. I threaded the guidewire and removed the needle. Using the Seldinger technique, I placed a dilator over the wire and removed the dilator. I then placed a triple-lumen catheter which had been flushed with saline over the wire and removed the wire. Each port withdrew blood easily and was flushed with saline. It was sutured into place and a sterile dressing was applied. He tolerated the procedure well. /[id number]/MODL MTDD
[2018-06-20] MEDS: HEPARIN 5,000 UNIT/0.5 ML INJ SC SCH ×2 (21:38)
[2018-06-20] MEDS: NOREPINEPHRINE BITARTRATE 16 MG in NS 250 ML IV SCH (22:20)
[2018-06-20] MEDS: oxyCODONE IR 5 MG TAB PO PRN (22:22)
[2018-06-20] MEDS: PHENYLEPHRINE HCL 50 MG in NS 250 ML IV SCH (23:59)
[2018-06-21] MEDS: oxyCODONE IR 5 MG TAB PO PRN ×4 (02:27→23:34)
[2018-06-21] MEDS: HYDROmorphONE/DILAUDID 1 MG/ML INJ IVP PRN ×3 (02:28→21:02)
[2018-06-21 04:27] LABS: PLATELET COUNT 186 10^3/uL (150-400)
[2018-06-21] MEDS: NOREPINEPHRINE BITARTRATE 16 MG in NS 250 ML IV SCH (06:28)
[2018-06-21] MEDS: PHENYLEPHRINE HCL 50 MG in NS 250 ML IV SCH ×2 (06:28→15:04)
[2018-06-21] MEDS: ACETAMINOPHEN 500 MG TAB PO SCH ×3 (06:30→21:01)
--- NOTE | 2018-06-21 08:45 | SOAPPROG ---
SOAP Progress Note Assessment/Plan: Assessment:R acetabular fx -being treated for central cord syndrome by nsgy team R proximal humerus fx -xray shows a greater tuberosity fx (acute) and flattening of the humeral head. This may be acute and part of the fracture pattern or due to collapse 2/2 osteonecrosis from chronic steroid use. Will acquire CT scan to eval -Becoming more clear that the patient must have fallen Plan: -strict NWB RLE -NWB RUE -PT/OT -pain ctrl -DVT prophy -appreciate care of icu and trauma teams -will f/u CT scan Subjective: Lying in bed. Doing ok. Pain in shoulder and hip stable Objective: Vital Signs Temp Pulse Resp BP Pulse Ox 37.5 C 73 16 163/73 H 94 06/21/18 04:00 06/21/18 07:00 06/21/18 07:00 06/21/18 07:00 06/21/18 07:00 Laboratory Results 06/21/18 04:20 06/21/18 04:20 06/20/18 06/21/18 06/22/18 05:59 05:59 05:59 Intake Total 3623 Output Total 3489 125 Balance 1948 -125 R shoulder -pain with attempted forward flexion ICD10 Worksheet Patient Problems: Problems Problem Status Onset Fever Acute
[2018-06-21] MEDS: CHOLECALCIFEROL VIT D3 2,000 UNITS TAB/CAP PO SCH (09:06)
[2018-06-21] MEDS: FERROUS SULFATE 325 MG TAB PO SCH (09:06)
[2018-06-21] MEDS: MULTIVITAMINS 1 EACH TAB PO SCH (09:06)
[2018-06-21] MEDS: GABAPENTIN 300 MG CAP PO SCH ×3 (09:06→22:25)
[2018-06-21] MEDS: HEPARIN 5,000 UNIT/0.5 ML INJ SC SCH (09:06)
--- NOTE | 2018-06-21 09:16 | HOSPPROG ---
Hospitalist Progress Note Assessment/Plan: 38 yo male with h/o UC s/p colectomy and ostomy with long h/o high dose steroids (now off) presented to ED after a fall out of bed while on sleeping medication. He suffered multiple fractures and C5-6 disc herniation with cord compression. Central cord syndrome in setting of C5-6 disc herniation with UE weakness and hypotension - neurosurgery involved. Pt has central line, on pressors. -cont NE to keep MAP >85, required addition of Phenylephrine overnight -will likely require surgical intervention, d/w neurosurg Fever likely 2/2 viral URI - no e/o epidural abscess on MRI. CXR w/o infiltrate (pers reviewed/interpreted). CTA showed possible early left basilar PNA, no PE. -cont to observe off atbx -supportive care Hypoxemia 2/2 above - 1-->3 LPM -wean O2 as able Acetabular fracture - discussed with Dr. Nelson, tx is non-operative, NWB x3 months. He is at risk for arthritis long-term. 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 CTA neg for PE. -will bridge with Lovenox, starting this afternoon 1 mg/kg until decision made about surgery -resume pradaxa post-op or if deemed non-operative UC s/p colectomy - colostomy care Microcytic anemia - no e/o active bleeding, iron stores low, could be residual from symptomatic UC, which has since resolved. Also possibly dilutional component. -pradaxa currently held, last dose 60 hrs ago, Thursday night at 2300 -started oral iron -hemoccult stool, outpt GI f/u -follow daily H&H Full code Dispo - cont inpt, high risk, 30 min crit care Subjective: Pt has low spirits today. Still very weak in UE's, unable to lift arms off bed. Distal UE strength intact. No fevers. No cough, CP or SOB, minimal URI symptoms. Taking po. Good uop. Objective: Vital Signs Temp Pulse Resp BP Pulse Ox 36.5 C 80 24 H 159/73 H 96 06/21/18 09:00 06/21/18 09:00 06/21/18 09:00 06/21/18 09:00 06/21/18 09:00 Laboratory Results 06/21/18 04:20 06/21/18 04:20 06/20/18 06/21/18 06/22/18 05:59 05:59 05:59 Intake Total 3623 Output Total 2685 125 Balance 1948 -125 - Physical Exam Constitutional: no apparent distress Eyes: PERRL Ears, Nose, Mouth, Throat: moist mucous membranes Cardiovascular: regular rate and rhythym Respiratory: no respiratory distress, clear to auscultation Gastrointestinal: normoactive bowel sounds, soft, non-tender abdomen Skin: warm Musculoskeletal: other (b/l proximal UE weakness, 1/5) Neurologic: AAOx3 Psychiatric: interacting appropriately ICD10 Worksheet Patient Problems: Problems Problem Status Onset Fever Acute
--- NOTE | 2018-06-21 09:29 | NEUSURGPN ---
Assessment/Plan: 40y/o male 38y/o make with central cord syndrome with C4/5 and and C5/6 stenosis, L4 compression fracture and right proximal humerus fx and acetabulum fx after a fall out of bed. -Continue to keep MAPs >85 for 7 days -Will continue to monitor patient pain in thoracic and lumbar spine. If complains of new symptoms there will obtain lumbar MRI -Patient may require surgical decompression of cervical spine. Given his multiple fx and Pradaxa there is concerns about bleeding and bone quality. Will monitor patient clinically today. -Discussed with Dr. Dukes -Continue ICU level of care with Q1 hour neuro checks. -If he develops any new or worsening symptoms, change in neuro/motor exam please notify NS. Subjective: right>left deltoid/biceps pain and weakness. Pain tolerable Objective: NAD A&Ox3 MES right deltoid 3/5, right biceps 3-/5. left deltoid/biceps 4-/5, bag patcher 5/5 bilaterally. BLE 5/5. Sensation intact - Physician Discussed Patient with : [facility] Physical Exam - Vitals, I&O, Labs I and O 06/20/18 06/21/18 06/22/18 05:59 05:59 05:59 Intake Total 3623 Output Total 1675 125 Balance 1948 -125 Weight Intake: Oral (ml) 500 IV Intake (ml) 1863 IV Infused (ml) 1260 Norepinephrine Bitartrate 144 16 mg In Ns 250 ml @ Per Protocol IV CONT JERROD Rx# :[id number] Norepinephrine Bitartrate 918 4 mg In Ns 500 ml @ Per Protocol IV CONT JERROD Rx#: [id number] Phenylephrine HCl 50 mg 198 In Ns 250 ml @ Per Protocol IV CONT JERROD Rx#: [id number] Output: Urine (ml) 1325 125 Colostomy 200 Urinal 1125 125 Liquid Stool (ml) 350 Colostomy 350 Other: Intake Quantity Sufficient Number of Voids Urinal 3 Vital Signs Temp Pulse Resp BP Pulse Ox 36.5 C 80 24 H 159/73 H 96 06/21/18 09:00 06/21/18 09:00 06/21/18 09:00 06/21/18 09:00 06/21/18 09:00 Laboratory Results 06/21/18 04:20 06/21/18 04:20 ICD10 Worksheet Patient Problems: Problems Problem Status Onset Fever Acute
--- NOTE | 2018-06-21 14:00 | PDINTPN ---
Asset Protection Specialist Progress Note Assessment/Plan: Assessment/plan: * Status post fall * C5-C6 disc herniation-per Neurosurgery -continue blood pressure elevation with norepinephrine * Pelvic and right shoulder fracture * Probable osteoporosis * Secondary to chronic steroid therapy ulcerative colitis-status post colectomy * Prothrombin gene mutation-this is requiring chronic anticoagulation with Pradaxa history of mild asthma * Pain-well controlled * VT prophylaxis * Stress ulcer prophylaxis * Mild asthma Subjective: 35 min of time spent patient, over 1/2 involved with coordination of care or counseling. Case discussed with nursing and family Objective: Vital Signs Temp Pulse Resp BP Pulse Ox 36.5 C 53 L 15 131/78 H 96 06/21/18 09:00 06/21/18 13:00 06/21/18 13:00 06/21/18 13:00 06/21/18 13:00 Laboratory Results 06/21/18 04:20 06/21/18 04:20 06/20/18 06/21/18 06/22/18 05:59 05:59 05:59 Intake Total 3623 Output Total 1675 375 Balance 1948 -375 - Time Spent With Patient Time Spent With Patient: 35 min of time spent with patient, over 1/2 involved with coordination of care or counseling. Case discussed with nursing and family Physical Exam - Physical Exam General Appearance: alert, no apparent distress EENT: PERRL/EOMI Neck: non-tender Respiratory: chest non-tender, lungs clear Cardiac/Chest: normal peripheral pulses, regular rate, rhythm Peripheral Pulses: 2+: carotid (R), carotid (L), femoral (R), femoral (L), dorsalis-pedis (R), dorsalis-pedis (L) Abdomen: normal bowel sounds, non-tender, soft Male Genitalia: deferred Rectal: deferred Skin: normal color, warm/dry Extremities: non-tender Neuro/Psych: alert, normal mood/affect, oriented x 3 ICD10 Worksheet Patient Problems: Problems Problem Status Onset Fever Acute
[2018-06-21] MEDS: LIDOCAINE 4%/MENTHOL 1% PATCH TD SCH (15:49)
[2018-06-21] MEDS: ENOXAPARIN 100 MG/ML SYR SC SCH (16:05)
[2018-06-21] MEDS ORDERED: ENOXAPARIN 100 MG/ML SYR SC SCH (17:00)
[2018-06-21] MEDS: PATCH REMOVAL 1 EA PATCH TD SCH (21:15)
[2018-06-22] MEDS: PHENYLEPHRINE HCL 50 MG in NS 250 ML IV SCH ×3 (00:17→21:06)
[2018-06-22] MEDS: ACETAMINOPHEN 500 MG TAB PO SCH ×3 (05:51→21:02)
[2018-06-22] MEDS: ENOXAPARIN 100 MG/ML SYR SC SCH ×2 (05:51→17:23)
[2018-06-22] MEDS: HYDROmorphONE/DILAUDID 1 MG/ML INJ IVP PRN ×2 (05:52→09:09)
[2018-06-22] MEDS: MULTIVITAMINS 1 EACH TAB PO SCH (09:11)
[2018-06-22] MEDS: GABAPENTIN 300 MG CAP PO SCH ×3 (09:11→21:02)
[2018-06-22] MEDS: oxyCODONE IR 5 MG TAB PO PRN ×4 (09:11→21:48)
[2018-06-22] MEDS: FERROUS SULFATE 325 MG TAB PO SCH (09:11)
[2018-06-22] MEDS: LIDOCAINE 4%/MENTHOL 1% PATCH TD SCH (09:12)
[2018-06-22] MEDS: CHOLECALCIFEROL VIT D3 2,000 UNITS TAB/CAP PO SCH (09:12)
--- NOTE | 2018-06-22 09:31 | PDINTPN ---
Extension Educator Progress Note Assessment/Plan: Assessment/plan: * Status post fall * C5-C6 disc herniation-per Neurosurgery -continue blood pressure elevation with norepinephrine * Pelvic and right shoulder fracture * Probable osteoporosis-Secondary to chronic steroid therapy * Ulcerative colitis-status post colectomy * Prothrombin gene mutation-this is requiring chronic anticoagulation with Pradaxa history of mild asthma * Pain-well controlled * PT/OT-patient became dizzy on standing -out of bed to chair later on today * VT prophylaxis * Stress ulcer prophylaxis * Mild asthma Subjective: Resting comfortably. Became dizzy upon standing. Objective: Vital Signs Temp Pulse Resp BP Pulse Ox 36.8 C 64 20 146/86 H 94 06/21/18 20:00 06/22/18 08:00 06/22/18 08:00 06/22/18 08:00 06/22/18 08:00 Laboratory Results 06/21/18 04:20 06/21/18 04:20 06/21/18 06/22/18 06/23/18 05:59 05:59 05:59 Intake Total 3629 3980 Output Total 1674 6321 Balance 1948 1155 - Time Spent With Patient Time Spent With Patient: 35 min of time spent with patient, over 1/2 involved with coordination of care or counseling. Case discussed with nursing and physical therapy Physical Exam - Physical Exam General Appearance: alert, no apparent distress EENT: PERRL/EOMI Neck: non-tender Respiratory: chest non-tender, lungs clear, normal breath sounds Cardiac/Chest: normal peripheral pulses, regular rate, rhythm Peripheral Pulses: 2+: carotid (R), carotid (L), femoral (R), femoral (L), dorsalis-pedis (R), dorsalis-pedis (L) Abdomen: normal bowel sounds, non-tender, soft Male Genitalia: deferred Rectal: deferred Skin: normal color, warm/dry Extremities: non-tender Neuro/Psych: alert, normal mood/affect, oriented x 3 ICD10 Worksheet Patient Problems: Problems Problem Status Onset Fever Acute
--- NOTE | 2018-06-22 10:51 | NEUSURGPN ---
Assessment/Plan: 40y/o male 38y/o make with central cord syndrome with C4/5 and and C5/6 stenosis, L4 compression fracture and right proximal humerus fx and acetabulum fx after a fall out of bed. No acute changes today. -Continue to keep MAPs >85 for 7 days -Will continue to monitor patient pain in thoracic and lumbar spine. If complains of new symptoms there will obtain lumbar MRI -Patient may require surgical decompression of cervical spine. Given his multiple fx and Pradaxa there is concerns about bleeding and bone quality. Will monitor patient clinically today. -Discussed with Dr. Dukes -Continue ICU level of care with Q1 hour neuro checks. -If he develops any new or worsening symptoms, change in neuro/motor exam please notify NS. Subjective: Some more increased pain in left shoulder. Patient is feeling like he needs to get up in move Objective: NAD A&Ox3 MES right deltoid 3/5, right biceps 3-/5. left deltoid/biceps 3+ to 4- /5, banking specialist 5/5 bilaterally. BLE 5/5. Sensation intact - Physician Discussed Patient with : [facility] Neuro[facility] Physical Exam - Vitals, I&O, Labs I and O 06/21/18 06/22/18 06/23/18 05:59 05:59 05:59 Intake Total 3623 3980 Output Total 1675 2825 550 Balance 1948 1155 -550 Intake: Oral (ml) 500 1450 IV Intake (ml) 1863 1590 IV Infused (ml) 1260 940 Norepinephrine Bitartrate 144 219 16 mg In Ns 250 ml @ Per Protocol IV CONT JERROD Rx# :[id number] Norepinephrine Bitartrate 918 4 mg In Ns 500 ml @ Per Protocol IV CONT JERROD Rx#: [id number] Phenylephrine HCl 50 mg 198 721 In Ns 250 ml @ Per Protocol IV CONT JERROD Rx#: [id number] Output: Urine (ml) 1325 2175 425 Colostomy 200 Urinal 1125 2175 425 Liquid Stool (ml) 350 650 125 Colostomy 350 650 125 Other: Number of Voids Urinal 3 Vital Signs Temp Pulse Resp BP Pulse Ox 36.9 C 64 22 H 143/80 H 94 06/22/18 09:00 06/22/18 09:00 06/22/18 09:00 06/22/18 09:00 06/22/18 09:00 Laboratory Results 06/22/18 07:40 06/21/18 04:20 ICD10 Worksheet Patient Problems: Problems Problem Status Onset Fever Acute
--- NOTE | 2018-06-22 16:09 | HOSPPROG ---
Hospitalist Progress Note Assessment/Plan: 38 yo male with h/o UC s/p colectomy and ostomy with long h/o high dose steroids (now off) presented to ED after a fall out of bed while on sleeping medication. He suffered multiple fractures and C5-6 disc herniation with cord compression. Central cord syndrome in setting of C5-6 disc herniation with UE weakness and hypotension - neurosurgery involved. Pt has central line, on pressors. -cont NE plus phenylephrine to keep MAP >85 -may warrant surgical intervention, but there is concern about integrity of his bones with hardware given multiple fractures and underlying bone disease -for now plan is for continued MAP support for 5-7 days in ICU Fever likely 2/2 viral URI - afebrile x72 hrs. No e/o epidural abscess on MRI. CXR w/o infiltrate (pers reviewed/interpreted). CTA showed possible early left basilar PNA, no PE. -cont to observe off atbx -supportive care Hypoxemia presumed 2/2 above - 2 LPM -wean O2 as able Acetabular and humeral fractures - unusual to suffer these fractures from falling out of bed. Discussed with Dr. Nelson, tx is non-operative, NWB x3 months. He is at risk for arthritis long-term. 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 CTA neg for PE. -cont bridging with Lovenox, 1 mg/kg bid until decision made about surgery -resume pradaxa post-op or if deemed non-operative UC s/p colectomy - colostomy care Microcytic anemia - no e/o active bleeding, iron stores low, could be residual from symptomatic UC, which has since resolved. Also possibly dilutional component. Heme neg stool. -cont oral iron -follow daily H&H LLL nodule - f/u imaging in 6 months Full code Dispo - cont inpt, high risk, 30 min crit care Subjective: Pt doing ok, spirits are better today. No fevers. Minimal respiratory symptoms. Still very weak, unable to move proximal UE's, but was able to ambulate a little to chair today, which he is quite pleased about Objective: Vital Signs Temp Pulse Resp BP Pulse Ox 37.2 C 80 18 133/83 H 92 06/22/18 12:00 06/22/18 15:00 06/22/18 15:00 06/22/18 15:00 06/22/18 15:00 Laboratory Results 06/22/18 07:40 06/21/18 04:20 06/21/18 06/22/18 06/23/18 05:59 05:59 05:59 Intake Total 362 3980 Output Total 8945 2825 825 Balance 1948 1155 -825 - Physical Exam Constitutional: no apparent distress Eyes: PERRL Ears, Nose, Mouth, Throat: moist mucous membranes Cardiovascular: regular rate and rhythym Respiratory: no respiratory distress, clear to auscultation Gastrointestinal: normoactive bowel sounds, soft, non-tender abdomen Skin: warm Musculoskeletal: other (1/5 b/l UE strength, sensation intact) Neurologic: AAOx3 Psychiatric: interacting appropriately ICD10 Worksheet Patient Problems: Problems Problem Status Onset Fever Acute
[2018-06-22] MEDS: NOREPINEPHRINE BITARTRATE 16 MG in NS 250 ML IV SCH (17:24)
--- NOTE | 2018-06-22 19:15 | SOAPPROG ---
SOAP Progress Note Assessment/Plan: Assessment:R acetabular fx -being treated for central cord syndrome by nsgy team R proximal humerus fx -CT scan shows a complex proximal humerus fracture with collapse of the humeral head and comminuted and displaced fractures of the greater tuberosity. There is a minimally displaced posterior glenoid rim fracture -Becoming more clear that the patient must have fallen Plan: -strict NWB RLE -NWB RUE -PT/OT -pain ctrl -DVT prophy -appreciate care of icu and trauma teams -I reviewed CT scan of the R shoulder with the patient and discussed options. Surgery indicated for this fracture pattern. ORIF likely better option for a 38yo male, however there is certainly a question of bone quality and osteoporosis. I spoke to the radiologist, who does not believe the imaging shows signs of osteonecrosis. Will discuss with nsgy and ICU team regarding timing. -I reviewed the initial CT abd/pelvis on presentation. Though the shoulders are mostly cut off, I think the L shoulder very possibly displays a similar fracture pattern to the R. -Will order a dedicated xray of the L shoulder to start. He may need a CT of that shoulder. Subjective: States L shoulder hurts almost as much as the right. Hip pain stable Objective: Vital Signs Temp Pulse Resp BP Pulse Ox 37.3 C 60 20 126/80 H 99 06/22/18 16:00 06/22/18 18:00 06/22/18 18:00 06/22/18 18:00 06/22/18 18:00 Laboratory Results 06/22/18 07:40 06/21/18 04:20 06/21/18 06/22/18 06/23/18 05:59 05:59 05:59 Intake Total 3623 3980 1800 Output Total 1675 2825 1475 Balance 1948 1155 325 RUE -pain with passive ROM of shoulder, ursula ER LUE -minimal pain with passive abd to about 80, however he has marked pain to ER of the shoulder passively ICD10 Worksheet Patient Problems: Problems Problem Status Onset Fever Acute
[2018-06-22] MEDS: PATCH REMOVAL 1 EA PATCH TD SCH (21:03)
[2018-06-23] MEDS: oxyCODONE IR 5 MG TAB PO PRN ×4 (02:53→22:50)
[2018-06-23] MEDS: HYDROmorphONE/DILAUDID 1 MG/ML INJ IVP PRN ×3 (04:54→19:41)
[2018-06-23 05:20] LABS: PLATELET COUNT 202 10^3/uL (150-400)
[2018-06-23] MEDS: ACETAMINOPHEN 500 MG TAB PO SCH ×3 (06:13→22:07)
[2018-06-23] MEDS: ENOXAPARIN 100 MG/ML SYR SC SCH ×2 (06:14→19:54)
[2018-06-23] MEDS: PHENYLEPHRINE HCL 50 MG in NS 250 ML IV SCH (07:53)
--- NOTE | 2018-06-23 08:20 | SOAPPROG ---
PAM Progress Note Assessment/Plan: Assessment: 38y/o male 38y/o make with central cord syndrome with C4/5 and and C5/6 stenosis, L4 compression fracture and right proximal humerus fx and acetabulum fx after a fall out of bed. Also with bilateral shoulder fx. No acute changes today. Plan: -Continue to keep MAPs >85 Through 06/24. -Will continue to monitor patient pain in thoracic and lumbar spine. If complains of new symptoms there will obtain lumbar MRI -Patient may require surgical decompression of cervical spine. Given his multiple fx and Pradaxa there is concerns about bleeding and bone quality. Will monitor patient clinically. -Discussed with Dr. Dukes -Continue ICU level of care with Q1 hour neuro checks. -If he develops any new or worsening symptoms, change in neuro/motor exam please notify NS. Subjective: Sitting up in bed, complains of bilateral shoulder pain and due to this is unable to lift withe deltoids bilaterally. Denies any new numbness, tingling or weakness. Legs feel fine. Objective: NAD A&Ox3 MES bilat deltoid 2/5, bilateral biceps 5/5. bilat biceps 5/5, audio visual aide 5/ 5 bilaterally. BLE 5/5. Sensation intact 06/23/18 08:22 Objective: Vital Signs Temp Pulse Resp BP Pulse Ox 37.2 C 74 24 H 138/74 H 95 06/23/18 05:00 06/23/18 06:00 06/23/18 06:00 06/23/18 06:00 06/23/18 06:00 Laboratory Results 06/23/18 05:00 06/21/18 04:20 06/22/18 06/23/18 06/24/18 05:59 05:59 05:59 Intake Total 4794 7350 Output Total 0484 3504 Balance 1155 311 ICD10 Worksheet Patient Problems: Problems Problem Status Onset Fever Acute
--- NOTE | 2018-06-23 09:21 | PDINTPN ---
Drum Filler Progress Note Assessment/Plan: Assessment/plan: * Status post fall * C5-C6 disc herniation-per Neurosurgery -continue blood pressure elevation with norepinephrine -per Neurosurgery * Pelvic and right shoulder fracture * Probable osteoporosis-Secondary to chronic steroid therapy * Ulcerative colitis-status post colectomy * Prothrombin gene mutation-this is requiring chronic anticoagulation with Pradaxa history of mild asthma * Pain-well controlled * PT/OT-continue * VT prophylaxis * Stress ulcer prophylaxis * Mild asthma Subjective: Resting comfortably. Pain well controlled. No current complaints. Objective: Vital Signs Temp Pulse Resp BP Pulse Ox 37.2 C 58 L 20 132/83 H 96 06/23/18 05:00 06/23/18 09:00 06/23/18 09:00 06/23/18 09:00 06/23/18 09:00 Laboratory Results 06/23/18 05:00 06/21/18 04:20 06/22/18 06/23/18 06/24/18 05:59 05:59 05:59 Intake Total 3980 2736 Output Total 2825 2425 Balance 1155 311 - Time Spent With Patient Time Spent With Patient: 35 min of time spent with patient, over 1/2 involved with coordination of care or counseling. Case discussed with nursing Physical Exam - Physical Exam General Appearance: alert, no apparent distress EENT: PERRL/EOMI Neck: supple Respiratory: chest non-tender, lungs clear, normal breath sounds Cardiac/Chest: normal peripheral pulses, regular rate, rhythm Peripheral Pulses: 2+: carotid (R), carotid (L), femoral (R), femoral (L), dorsalis-pedis (R), dorsalis-pedis (L) Abdomen: normal bowel sounds, non-tender, soft Male Genitalia: deferred Rectal: deferred Skin: normal color, warm/dry Extremities: non-tender Neuro/Psych: no motor/sensory deficits, alert, normal mood/affect, oriented x 3 ICD10 Worksheet Patient Problems: Problems Problem Status Onset Fever Acute
[2018-06-23] MEDS: MULTIVITAMINS 1 EACH TAB PO SCH (09:24)
[2018-06-23] MEDS: CHOLECALCIFEROL VIT D3 2,000 UNITS TAB/CAP PO SCH (09:24)
[2018-06-23] MEDS: GABAPENTIN 300 MG CAP PO SCH ×3 (09:24→22:07)
[2018-06-23] MEDS: FERROUS SULFATE 325 MG TAB PO SCH (09:24)
[2018-06-23] MEDS: LIDOCAINE 4%/MENTHOL 1% PATCH TD SCH (09:25)
[2018-06-23] MEDS ORDERED: CEPACOL LOZENGE PO PRN ×2 (11:30)
[2018-06-23] MEDS ORDERED: CEPACOL LOZENGE PO ONE (11:41)
[2018-06-23] MEDS: PATCH REMOVAL 1 EA PATCH TD SCH (19:54)
--- NOTE | 2018-06-23 21:05 | ASMTCMCOM ---
CM Note CM Note Notes: Pt discussed in multi-discipline rounds w/ Selina present. Met with Selina who expressed concerns about the expense of Pt being in the hospital and then going to IP rehab. I contacted [facility] IP Rehab admit coordinator Rehana who informed me the Pts insurance has a $500 deduction, a 90/10% once he meets $500, and 10% up to $3500, then insurance pays 100%. The deductions are often met before the Pt even comes to Rehab. I attempt to convey this information to Selina x3 but, she was not on the unit. CM will meet with Selina 06/24/18. Rehana asked if we have a sense that the Pt maybe medically clear for discharge to please give her a heads up ASHLIE. Pt lives with his in an apartment in [place] and they have an 8yr old son. CM will continue to monitor needs. PLAN: TBD Date Signed: 06/23/2018 09:04 PM Electronically Signed By:Carolynn Hayden
[2018-06-24] MEDS: oxyCODONE IR 5 MG TAB PO PRN ×7 (02:02→21:01)
[2018-06-24] MEDS: PHENYLEPHRINE HCL 50 MG in NS 250 ML IV SCH ×2 (02:04→20:42)
[2018-06-24] MEDS: ENOXAPARIN 100 MG/ML SYR SC SCH ×2 (05:15→17:48)
[2018-06-24] MEDS: ACETAMINOPHEN 500 MG TAB PO SCH ×3 (05:15→21:02)
--- NOTE | 2018-06-24 08:03 | NEUSURGPN ---
Assessment/Plan: 38y/o male with central cord syndrome with C4/5 and and C5/6 stenosis, chronic L4 compression fracture and right proximal humerus fx and acetabulum fx after a fall out of bed. Also with bilateral shoulder fx. Plan: -Continue to keep MAPs >85 through 06/24. Ok to normalize 06/25/18 at 0700 -Will continue to monitor patient pain in thoracic and lumbar spine. If complains of new symptoms there will obtain lumbar MRI -Patient may require surgical decompression of cervical spine. Given his multiple fx and Pradaxa there is concerns about bleeding and bone quality. Will monitor patient clinically and likely will consider cervical surgery as an out patient -Ok from our standpoint for Ortho surgery -Discussed with Dr. Dukes -Continue ICU level of care with Q1 hour neuro checks. -If he develops any new or worsening symptoms, change in neuro/motor exam please notify NS. Subjective: Bilateral shoulder pain, no nerve pain Objective: AxOx4 MAEx4 Bilateral deltoid 2/5 limited exam due to bilateral shoulder pain Bilateral biceps, extractions technician, intrinsics 5/5 BLE 5/5 Sensation intact to light touch BLE Neuro Check Frequency: per routine Urinary Catheter in Place: No - Physician Discussed Patient with : [facility] Neurosurgery Physical Exam - Vitals, I&O, Labs I and O 06/23/18 06/24/18 06/25/18 05:59 05:59 05:59 Intake Total 2736 1926 Output Total 2425 1100 Balance 311 826 Intake: Oral (ml) 1800 1400 IV Intake (ml) 600 278 IV Infused (ml) 336 248 Norepinephrine Bitartrate 110 76 16 mg In Ns 250 ml @ Per Protocol IV CONT JERROD Rx# :[id number] Phenylephrine HCl 50 mg 226 172 In Ns 250 ml @ Per Protocol IV CONT JERROD Rx#: [id number] Output: Urine (ml) 1800 800 Urinal 1800 800 Liquid Stool (ml) 625 300 Colostomy 625 300 Other: Intake Quantity Yes Yes Sufficient Vital Signs Temp Pulse Resp BP Pulse Ox 37.3 C 66 14 131/82 H 95 06/23/18 21:00 06/24/18 07:00 06/24/18 07:00 06/24/18 07:00 06/24/18 07:00 Laboratory Results 06/23/18 05:00 06/21/18 04:20 ICD10 Worksheet Patient Problems: Problems Problem Status Onset Fever Acute
--- NOTE | 2018-06-24 08:39 | PDINTPN ---
Striping Machine Operator Progress Note Assessment/Plan: Assessment/plan: * Status post fall * C5-C6 disc herniation-per Neurosurgery -continue blood pressure elevation with norepinephrine -per Neurosurgery * Pelvic and right shoulder fracture-severe pain with any movement. * Probable osteoporosis-Secondary to chronic steroid therapy * Ulcerative colitis-status post colectomy * Prothrombin gene mutation-this is requiring chronic anticoagulation with Pradaxa history of mild asthma * Pain-well controlled * PT/OT-continue. Now up in chair. Extremely painful. * VT prophylaxis * Stress ulcer prophylaxis * Mild asthma-stable Subjective: Complains of pain well working with physical therapy. Denies any shortness of breath or chest pain. Objective: Vital Signs Temp Pulse Resp BP Pulse Ox 37.3 C 66 14 131/82 H 95 06/23/18 21:00 06/24/18 07:00 06/24/18 07:00 06/24/18 07:00 06/24/18 07:00 Laboratory Results 06/23/18 05:00 06/21/18 04:20 06/23/18 06/24/18 06/25/18 05:59 05:59 05:59 Intake Total 2736 1926 Output Total 2425 1100 Balance 311 826 - Time Spent With Patient Time Spent With Patient: 35 min of time spent with patient, over 1/2 involved with coordination of care or counseling. Case discussed with nursing. Physical Exam - Physical Exam General Appearance: alert, mild distress EENT: PERRL/EOMI Neck: supple Respiratory: chest non-tender, lungs clear, normal breath sounds Cardiac/Chest: normal peripheral pulses, regular rate, rhythm Peripheral Pulses: 2+: carotid (R), carotid (L), femoral (R), femoral (L), dorsalis-pedis (R), dorsalis-pedis (L) Abdomen: normal bowel sounds, non-tender, soft Male Genitalia: deferred Rectal: deferred Skin: warm/dry Neuro/Psych: alert, oriented x 3 ICD10 Worksheet Patient Problems: Problems Problem Status Onset Fever Acute
[2018-06-24] MEDS: GABAPENTIN 300 MG CAP PO SCH ×3 (08:41→21:03)
[2018-06-24] MEDS: MULTIVITAMINS 1 EACH TAB PO SCH (08:42)
[2018-06-24] MEDS: LIDOCAINE 4%/MENTHOL 1% PATCH TD SCH (08:42)
[2018-06-24] MEDS: FERROUS SULFATE 325 MG TAB PO SCH (08:42)
[2018-06-24] MEDS: CHOLECALCIFEROL VIT D3 2,000 UNITS TAB/CAP PO SCH (08:42)
--- NOTE | 2018-06-24 10:02 | SOAPPROG ---
SOAP Progress Note Assessment/Plan: Progress Note for 06/23/18 Assessment:R acetabular fx -being treated for central cord syndrome by nsgy team -strict NWB. Plan non-op treatment as articular surface congruent. He understands risks of displacement that may necessitate surgery. Will acquire new xrays next week. R proximal humerus fx -CT scan shows a complex proximal humerus fracture with collapse of the humeral head and comminuted and displaced fractures of the greater tuberosity. There is a minimally displaced posterior glenoid rim fracture L proximal humerus fx -greater tuberosity fx with likely humeral head collapse. To my own review this is a very similar pattern to the left shoulder -will need CT to decide b/w non-op and surgical mgmt Plan: -strict NWB RLE -NWB RUE, UE -PT/OT -pain ctrl -DVT prophy -appreciate care of icu and medical teams -I reviewed CT scan of the R shoulder with the patient and discussed options. Surgery indicated for this fracture pattern. ORIF likely better option for a 38yo male, however there is certainly a question of bone quality and osteoporosis. I spoke to the radiologist, who does not believe the imaging shows signs of osteonecrosis. At his age, I think attempt at ORIF is the most prudent option, however if he indeed has osteoporosis due to steroid use the risk of cutout or fracture collapse is high. Nevertheless, I would not attempt replacement as the initial treatment for an active 38yo male. He understands that he may need one should fracture fixation fail or if AVN develops. I have OR time Tues am to fix the R shoulder. - CT L shoulder ordered 06/23 -B/L proximal humerus fractures - very similar fracture pattern in both shoulders. The mechanism of injury remains somewhat a mystery. To sustain B/L prox humerus fractures falls on both shoulders at the same event need to happen. The pattern he presents with can also happen with a significant seizure. 06/24/18 09:54 Subjective: Progress Note for 06/23/18 Saw Vamshi this afternoon and discussed the results of his L shoulder xray. Also discussed possible timing for R shoulder surgery. Objective: Vital Signs Temp Pulse Resp BP Pulse Ox 37.3 C 66 14 131/82 H 95 06/23/18 21:00 06/24/18 07:00 06/24/18 07:00 06/24/18 07:00 06/24/18 07:00 Laboratory Results 06/23/18 05:00 06/21/18 04:20 06/23/18 06/24/18 06/25/18 05:59 05:59 05:59 Intake Total 2585 1926 Output Total 2422 1100 Balance 311 826 B/L shoulder -pain with PROM ICD10 Worksheet Patient Problems: Problems Problem Status Onset Fever Acute
[2018-06-24 10:58] LABS: PLATELET COUNT 215 10^3/uL (150-400)
--- NOTE | 2018-06-24 13:59 | HOSPPROG ---
Hospitalist Progress Note Assessment/Plan: 38 yo male with h/o UC s/p colectomy and ostomy with long h/o high dose steroids (now off) presented to ED after a fall out of bed while on sleeping medication. He suffered multiple fractures and C5-6 disc herniation with cord compression. Central cord syndrome in setting of C5-6 disc herniation with UE weakness and hypotension - neurosurgery involved. Pt has central line, on pressors. -cont NE plus phenylephrine to keep MAP >85 Hypoxemia presumed 2/2 above - 2 LPM -wean O2 as able Acetabular and humeral fractures - unusual to suffer these fractures from falling out of bed. Discussed with Dr. Nelson, mechanism of fracture could be due to seizure although and patient denied. Right fracture amenable to surgery but patient could be discharged and then follow up for operative treatment. Repeat CT scan of left shoulder pending. 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 CTA neg for PE. -cont bridging with Lovenox, 1 mg/kg bid until decision made about surgery -resume pradaxa post-op or if deemed non-operative UC s/p colectomy - colostomy care Microcytic anemia - no e/o active bleeding, iron stores low, could be residual from symptomatic UC, which has since resolved. Also possibly dilutional component. Heme neg stool. -cont oral iron -follow daily H&H LLL nodule - f/u imaging in 6 months Full code Dispo - cont inpt, high risk, 30 min crit care Subjective: moaning but otherwise not responsive. Objective: Vital Signs Temp Pulse Resp BP Pulse Ox 37.1 C 76 14 151/52 H 96 06/24/18 08:00 06/24/18 08:00 06/24/18 08:00 06/24/18 08:00 06/24/18 08:00 Laboratory Results 06/24/18 10:50 06/24/18 10:50 06/23/18 06/24/18 06/25/18 05:59 05:59 05:59 Intake Total 2736 1926 Output Total 2425 1100 Balance 311 826 - Physical Exam Constitutional: no apparent distress Eyes: anicteric sclera Ears, Nose, Mouth, Throat: moist mucous membranes Cardiovascular: regular rate and rhythym Respiratory: no respiratory distress Gastrointestinal: soft, non-tender abdomen, no palpable masses Genitourinary: no bladder fullness Skin: warm, normal color Musculoskeletal: generalized weakness, other (Unresponsive) Neurologic: other (Unresponsive) Psychiatric: encephalopathic Lymph, Heme, Immunologic: no cervical LAD ICD10 Worksheet Patient Problems: Problems Problem Status Onset Fever Acute
--- NOTE | 2018-06-24 18:47 | SOAPPROG ---
SOAP Progress Note Assessment/Plan: Progress Note for 06/23/18 Assessment:R acetabular fx -being treated for central cord syndrome by nsgy team -strict NWB. Plan non-op treatment as articular surface congruent. He understands risks of displacement that may necessitate surgery. Will acquire new xrays next week if still inpatient. R proximal humerus fx -CT scan shows a complex proximal humerus fracture with collapse of the humeral head and comminuted and displaced fractures of the greater tuberosity. There is a minimally displaced posterior glenoid rim fracture L proximal humerus fx -CT scan reviewed. The greater and lesser tuberosity fractures are both minimally displaced. There may be some humeral head impaction , but this is minimal. No signs of AVN -plan non-op tx. Elbow, wrist and hand ROM ok. No active ROM of shoulder Plan: -strict NWB RLE -NWB RUE, UE -PT/OT -pain ctrl -DVT prophy -appreciate care of icu and medical teams -I reviewed CT scan of the R shoulder with the patient and discussed options. Surgery indicated for this fracture pattern. ORIF likely better option for a 38yo male, however there is certainly a question of bone quality and osteoporosis. I spoke to the radiologist, who does not believe the imaging shows signs of osteonecrosis. At his age, I think attempt at ORIF is the most prudent option, however if he indeed has osteoporosis due to steroid use the risk of cutout or fracture collapse is high. Nevertheless, I would not attempt replacement as the initial treatment for an active 38yo male. He understands that he may need one should fracture fixation fail or if AVN develops. -Surgery scheduled for 06/29 at 8:15am -Continue Catherine prior to surgery and hold evening dose -Hgb 6.9 today. Blood loss with proximal humerus ORIF is not insignificant. Would recommend higher starting Hgb prior to the surgery. May need transfusion prior. -Normally would use intra-op IV TXA to decrease intra-op and post-op blood loss. I will have to inquire with primary service if there is contra-indication with his increased clotting risk. -B/L proximal humerus fractures - very similar fracture pattern in both shoulders. The mechanism of injury remains somewhat a mystery. To sustain B/L prox humerus fractures falls on both shoulders at the same event need to happen. The pattern he presents with can also happen with a significant seizure. Subjective: Feels better today. Was in a wheelchair for a while. Pain better controlled. Objective: Vital Signs Temp Pulse Resp BP Pulse Ox 36.8 C 77 22 H 126/63 H 94 06/24/18 12:00 06/24/18 18:00 06/24/18 18:00 06/24/18 18:00 06/24/18 18:00 Laboratory Results 06/24/18 10:50 06/24/18 10:50 06/23/18 06/24/18 06/25/18 05:59 05:59 05:59 Intake Total 2736 1926 1736.7 Output Total 2425 1100 850 Balance 311 826 886.7 B/L UE -pain with passive ROM ICD10 Worksheet Patient Problems: Problems Problem Status Onset Fever Acute
[2018-06-25] MEDS: oxyCODONE IR 5 MG TAB PO PRN ×8 (00:04→23:23)
[2018-06-25] MEDS: ACETAMINOPHEN 500 MG TAB PO SCH ×3 (05:54→21:52)
[2018-06-25] MEDS: ENOXAPARIN 100 MG/ML SYR SC SCH ×2 (05:55→18:01)
[2018-06-25 05:56] LABS: PLATELET COUNT 238 10^3/uL (150-400)
[2018-06-25] MEDS: PATCH REMOVAL 1 EA PATCH TD SCH ×2 (06:08→21:53)
--- NOTE | 2018-06-25 08:17 | NEUSURGPN ---
Assessment/Plan: 38y/o male with central cord syndrome with C4/5 and and C5/6 stenosis, chronic L4 compression fracture and right proximal humerus fx and acetabulum fx after a fall out of bed. Also with bilateral shoulder fx. Patient exam is stable, difficult to asses as he is restricted from motion above the below (unable to test biceps/deltoid) Plan: -Ok to normalize SBP today and wean pressors. Goal is >100 systolic -Will continue to monitor patient pain in thoracic and lumbar spine. If complains of new symptoms there will obtain lumbar MRI -Patient may require surgical decompression of cervical spine. Given his multiple fx and Pradaxa there is concerns about bleeding and bone quality. Will monitor patient clinically and likely will consider cervical surgery as an out patient -Ok from our standpoint for Ortho surgery -Discussed with Dr. Dukes -Continue ICU level of care with Q1 hour neuro checks. -If he develops any new or worsening symptoms, change in neuro/motor exam please notify NS. Subjective: Pain tolerable and slightly improved. Denies any new weakness Objective: NAD A7ox3 MAEx4 5/5 and equal in BUE and BLE, can not asses delotids/biceps due to bilateral humerus fractures - Physician Discussed Patient with : [facility] Neuro[facility] Physical Exam - Vitals, I&O, Labs I and O 06/24/18 06/25/18 06/26/18 05:59 05:59 05:59 Intake Total 1926 2636.7 Output Total 1100 2550 Balance 826 86.7 Intake: Oral (ml) 1400 1700 IV Intake (ml) 278 632 IV Infused (ml) 248 304.7 Norepinephrine Bitartrate 76 73.7 16 mg In Ns 250 ml @ Per Protocol IV CONT JERROD Rx# :[id number] Phenylephrine HCl 50 mg 172 231 In Ns 250 ml @ Per Protocol IV CONT JERROD Rx#: [id number] Output: Urine (ml) 800 2050 Colostomy 1200 Urinal 800 850 Liquid Stool (ml) 300 500 Colostomy 300 Ileostomy 500 Other: Intake Quantity Yes Yes Sufficient Number of Voids Colostomy 3 Number of Stools Colostomy 2 Microbiology 06/19/18 18:35 Blood Culture - Final Blood 06/19/18 18:46 Blood Culture - Final Blood Vital Signs Temp Pulse Resp BP Pulse Ox 37.0 C 65 10 L 150/87 H 96 06/25/18 05:00 03/15/19 07:00 06/25/18 07:00 06/25/18 07:00 06/25/18 07:00 Laboratory Results 06/25/18 05:43 06/25/18 05:43 ICD10 Worksheet Patient Problems: Problems Problem Status Onset Fever Acute
[2018-06-25] MEDS: LIDOCAINE 4%/MENTHOL 1% PATCH TD SCH (09:07)
[2018-06-25] MEDS: GABAPENTIN 300 MG CAP PO SCH ×3 (09:10→21:52)
[2018-06-25] MEDS: MULTIVITAMINS 1 EACH TAB PO SCH (09:10)
[2018-06-25] MEDS: CHOLECALCIFEROL VIT D3 2,000 UNITS TAB/CAP PO SCH (09:10)
[2018-06-25] MEDS: FERROUS SULFATE 325 MG TAB PO SCH (09:11)
[2018-06-25] MEDS: NOREPINEPHRINE BITARTRATE 16 MG in NS 250 ML IV SCH (09:16)
[2018-06-25] MEDS: PHENYLEPHRINE HCL 50 MG in NS 250 ML IV SCH (09:16)
--- NOTE | 2018-06-25 09:36 | PDINTPN ---
Television Engineering Teacher Progress Note Assessment/Plan: Assessment/plan: * Status post fall * C5-C6 disc herniation-per Neurosurgery -norepinephrine discontinued -per Neurosurgery * Dizziness upon standing. Query if the secondary to norepinephrine versus hypovolemia versus pain -follow * Pelvic and right shoulder fracture-severe pain with any movement. * Probable osteoporosis-Secondary to chronic steroid therapy * Ulcerative colitis-status post colectomy * Prothrombin gene mutation-this is requiring chronic anticoagulation with Pradaxa history of mild asthma * Pain-well controlled * PT/OT-continue. Now up in chair. Extremely painful. * VT prophylaxis * Stress ulcer prophylaxis * Mild asthma-stable Subjective: Sitting up in wheelchair. Complains of pain. Also complains of dizziness and ears ringing. Objective: Vital Signs Temp Pulse Resp BP Pulse Ox 37.0 C 65 10 L 138/84 H 96 06/25/18 05:00 06/25/18 08:00 06/25/18 08:00 06/25/18 08:00 06/25/18 08:00 Microbiology 06/19/18 18:35 Blood Culture - Final Blood 06/19/18 18:46 Blood Culture - Final Blood Laboratory Results 06/25/18 05:43 06/25/18 05:43 06/24/18 06/25/18 06/26/18 05:59 05:59 05:59 Intake Total 1926 2636.7 Output Total 1100 2550 Balance 826 86.7 Physical Exam - Physical Exam General Appearance: alert, mild distress EENT: PERRL/EOMI Neck: non-tender Respiratory: chest non-tender, lungs clear, normal breath sounds Cardiac/Chest: normal peripheral pulses, regular rate, rhythm Peripheral Pulses: 2+: carotid (R), carotid (L), femoral (R), femoral (L), dorsalis-pedis (R), dorsalis-pedis (L) Abdomen: normal bowel sounds, non-tender, soft Male Genitalia: deferred Rectal: deferred Skin: warm/dry Extremities: non-tender Neuro/Psych: alert, normal mood/affect, oriented x 3 ICD10 Worksheet Patient Problems: Problems Problem Status Onset Fever Acute
[2018-06-25] MEDS ORDERED: PROTOCOL POTASSIUM 1 DOSE MISC PRN (10:39)
[2018-06-25] MEDS ORDERED: POTASSIUM CL 10 MEQ TAB PO ONE ×2 (11:13→20:02)
--- NOTE | 2018-06-25 12:10 | ASMTCMCOM ---
CM Note CM Note Notes: Pt Discussed in rounds. Pt continue to have blood pressure issues and may go to surgery on Thu. [facility] continues to monitor progress. CM will continue to monitor needs. PLAN: Likely to [facility] when medically cleared Date Signed: 06/25/2018 12:09 PM Electronically Signed By:Carolynn Hayden
--- NOTE | 2018-06-25 16:45 | HOSPPROG ---
Hospitalist Progress Note Assessment/Plan: 38 yo male with h/o UC s/p colectomy and ostomy with long h/o high dose steroids (now off) presented to ED after a fall out of bed while on sleeping medication. He suffered multiple fractures and C5-6 disc herniation with cord compression. Central cord syndrome in setting of C5-6 disc herniation with UE weakness and hypotension - neurosurgery involved. Pt has central line, on pressors. -surgery okay'd allowing map below 85 and stopping pressors unless systolic below 100. Hypoxemia presumed 2/2 above - 2 LPM -wean O2 as able Acetabular and humeral fractures - unusual to suffer these fractures from falling out of bed. Discussed with Dr. Nelson, mechanism of fracture could be due to seizure although and patient denied. Right fracture amenable to surgery but not until Thursday at the earliest due to scheduling issues per ortho. Left shoulder needs to be reevaluated. 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 CTA neg for PE. -cont bridging with Lovenox, 1 mg/kg bid until decision made about surgery -resume pradaxa post-op or if deemed non-operative UC s/p colectomy - colostomy care Microcytic anemia - no e/o active bleeding, iron stores low, could be residual from symptomatic UC, which has since resolved. H/H trending down over course of stay to 10/02 today, -Transfuse 2 units PRBCs today -follow daily H&H LLL nodule - f/u imaging in 6 months Full code Dispo -remain inpat. change to SDU Subjective: pain manageable. no complaints. Objective: Vital Signs Temp Pulse Resp BP Pulse Ox 36.8 C 85 19 119/74 95 06/25/18 16:00 06/25/18 16:00 06/25/18 16:00 06/25/18 16:00 06/25/18 16:00 Microbiology 06/19/18 18:35 Blood Culture - Final Blood 06/19/18 18:46 Blood Culture - Final Blood Laboratory Results 06/25/18 05:43 06/25/18 05:43 06/24/18 06/25/18 06/26/18 05:59 05:59 05:59 Intake Total 1926 2636.7 200 Output Total 1100 2550 1265 Balance 826 86.7 -1065 - Physical Exam Constitutional: no apparent distress, appears nourished Eyes: PERRL, anicteric sclera Ears, Nose, Mouth, Throat: moist mucous membranes, hearing normal Cardiovascular: regular rate and rhythym, no murmur, rub, or gallop Respiratory: no respiratory distress, no rales or rhonchi Gastrointestinal: normoactive bowel sounds, soft, non-tender abdomen Genitourinary: no bladder fullness Skin: warm, normal color Musculoskeletal: generalized weakness Neurologic: AAOx3 Psychiatric: interacting appropriately Lymph, Heme, Immunologic: no cervical LAD ICD10 Worksheet Patient Problems: Problems Problem Status Onset Fever Acute
[2018-06-26] MEDS: oxyCODONE IR 5 MG TAB PO PRN ×6 (03:49→19:38)
[2018-06-26] MEDS: ENOXAPARIN 100 MG/ML SYR SC SCH ×2 (05:32→16:41)
[2018-06-26] MEDS: ACETAMINOPHEN 500 MG TAB PO SCH ×3 (05:34→21:18)
[2018-06-26 06:25] LABS: PLATELET COUNT 283 10^3/uL (150-400)
[2018-06-26] MEDS: CHOLECALCIFEROL VIT D3 2,000 UNITS TAB/CAP PO SCH (08:02)
[2018-06-26] MEDS: GABAPENTIN 300 MG CAP PO SCH ×3 (08:02→21:19)
[2018-06-26] MEDS: MULTIVITAMINS 1 EACH TAB PO SCH (08:02)
[2018-06-26] MEDS: LIDOCAINE 4%/MENTHOL 1% PATCH TD SCH (08:02)
[2018-06-26] MEDS: FERROUS SULFATE 325 MG TAB PO SCH (08:02)
[2018-06-26] MEDS ORDERED: POTASSIUM CL 10 MEQ TAB PO ONE (08:18)
--- NOTE | 2018-06-26 09:24 | SOAPPROG ---
SOAP Progress Note Assessment/Plan: Assessment/Plan: 38y/o male with central cord syndrome with C4/5 and and C5/6 stenosis, chronic L4 compression fracture and right proximal humerus fx and acetabulum fx after a fall out of bed. Also with bilateral shoulder fx. Patient exam is stable, difficult to asses as he is restricted from motion above the below (unable to test biceps/deltoid) Plan: Orthoi to address right shoulder with surgery tentatively Thursday. -Normalize SBP - Goal is >100 systolic -Will continue to monitor patient pain in thoracic and lumbar spine. If complains of new symptoms there will obtain lumbar MRI -Patient may require surgical decompression of cervical spine. Given his multiple fx and Pradaxa there is concerns about bleeding and bone quality. Will monitor patient clinically and likely will consider cervical surgery as an out patient -Ok from our standpoint for Ortho surgery -Discussed with Dr. Dukes -Continue ICU level of care with Q1 hour neuro checks. -If he develops any new or worsening symptoms, change in neuro/motor exam please notify NS. Subjective: Pain controlled. Denies any new weakness Objective: NAD A+ox3 MAEx4 5/5 and equal in BUE and BLE, can not asses delotids/biceps due to bilateral humerus fractures. No calf tenderness. 5/5 bilateral DF/PF/EHL 06/26/18 09:18 Objective: Vital Signs Temp Pulse Resp BP Pulse Ox 36.9 C 73 18 112/68 90 L 06/26/18 07:58 06/26/18 07:58 06/26/18 07:58 06/26/18 07:58 06/26/18 07:58 Microbiology 06/19/18 18:35 Blood Culture - Final Blood 06/19/18 18:46 Blood Culture - Final Blood Laboratory Results 06/26/18 05:45 06/26/18 05:45 06/25/18 06/26/18 06/27/18 05:59 05:59 05:59 Intake Total 2636.7 2673 Output Total 4630 2570 Balance 86.7 -767 ICD10 Worksheet Patient Problems: Problems Problem Status Onset Fever Acute
--- NOTE | 2018-06-26 10:39 | PDINTPN ---
Retail Performance Coach Progress Note Assessment/Plan: Assessment/plan: * Status post fall * C5-C6 disc herniation-per Neurosurgery -norepinephrine weaning -per Neurosurgery * Dizziness -resolve -follow * Pelvic and right shoulder fracture-severe pain with any movement. * Probable osteoporosis-Secondary to chronic steroid therapy * Ulcerative colitis-status post colectomy * Prothrombin gene mutation-this is requiring chronic anticoagulation with Pradaxa * History of mild asthma * Pain-well controlled * PT/OT-continue. Now up in chair. Extremely painful. * VT prophylaxis * Stress ulcer prophylaxis * Mild asthma-stable Subjective: Sitting up in chair. Resting comfortably. Pain well tolerated. Objective: Vital Signs Temp Pulse Resp BP Pulse Ox 36.9 C 84 15 115/71 90 L 06/26/18 07:58 06/26/18 09:00 06/26/18 09:00 06/26/18 09:00 06/26/18 09:00 Microbiology 06/19/18 18:35 Blood Culture - Final Blood 06/19/18 18:46 Blood Culture - Final Blood Laboratory Results 06/26/18 05:45 06/26/18 05:45 06/25/18 06/26/18 06/27/18 05:59 05:59 05:59 Intake Total 2636.7 2673 Output Total 2550 3440 Balance 86.7 -767 - Time Spent With Patient Time Spent With Patient: 35 min of time spent with patient, over 1/2 involved with coordination of care counseling. Case discussed with nursing Physical Exam - Physical Exam General Appearance: alert, no apparent distress EENT: PERRL/EOMI Neck: non-tender, supple Respiratory: chest non-tender, lungs clear, normal breath sounds Cardiac/Chest: normal peripheral pulses, regular rate, rhythm Peripheral Pulses: 2+: carotid (R), carotid (L), femoral (R), femoral (L), dorsalis-pedis (R), dorsalis-pedis (L) Abdomen: normal bowel sounds, non-tender, soft Male Genitalia: deferred Rectal: deferred Skin: warm/dry Extremities: non-tender Neuro/Psych: alert, normal mood/affect, oriented x 3 ICD10 Worksheet Patient Problems: Problems Problem Status Onset Fever Acute
--- NOTE | 2018-06-26 15:20 | HOSPPROG ---
Hospitalist Progress Note Assessment/Plan: 38 yo male with h/o UC s/p colectomy and ostomy with long h/o high dose steroids (now off) presented to ED after a fall out of bed while on sleeping medication. He suffered multiple fractures and C5-6 disc herniation with cord compression. Central cord syndrome in setting of C5-6 disc herniation with UE weakness and hypotension - neurosurgery involved. Pt has central line, initially requiring pressors to push MAPs > 85 -surgery okay'd allowing map below 85 pressures remain a bit low but has not required pressor support again tdoay Hypoxemia presumed 2/2 above - 2 LPM -wean O2 as able Anemia: h/h have been trending down since admission, required tx 2 units PRBC yesterday, continue to trend, check ostomy output for occult blood, no other s/ s of active bleeding, iron studies c/w mixed picture with iron deficiency contributing Acetabular and humeral fractures - unusual to suffer these fractures from falling out of bed. Right fracture will require surgery Thursday . Left shoulder needs to be reevaluated. 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 CTA neg for PE. -cont lovenox for now given upcoming surgery UC s/p colectomy - colostomy care LLL nodule - f/u imaging in 6 months Full code Dispo -continue SDU, > 35 min critical care time spent in eval of labs/imaging and coordincation of care Subjective: no signficant overnight events, patietn notes pain is better controlled today Objective: Vital Signs Temp Pulse Resp BP Pulse Ox 36.9 C 95 17 102/73 91 L 06/26/18 07:58 06/26/18 14:00 06/26/18 14:00 06/26/18 14:00 06/26/18 14:00 Laboratory Results 06/26/18 05:45 06/26/18 05:45 06/25/18 06/26/18 06/27/18 05:59 05:59 05:59 Intake Total 2636.7 2673 Output Total 2550 3440 375 Balance 86.7 -767 -375 awake alert anciteric op clear rrr no mrg cta b soft ostomy with brown output no cce warm dry well perfused oriented appropriate ICD10 Worksheet Patient Problems: Problems Problem Status Onset Fever Acute
[2018-06-26] MEDS: PATCH REMOVAL 1 EA PATCH TD SCH (19:18)
[2018-06-27] MEDS: oxyCODONE IR 5 MG TAB PO PRN ×8 (00:38→23:58)
[2018-06-27] MEDS: HYDROmorphONE/DILAUDID 1 MG/ML INJ IVP PRN (05:23)
[2018-06-27] MEDS: ENOXAPARIN 100 MG/ML SYR SC SCH ×2 (05:26→16:28)
[2018-06-27] MEDS: ACETAMINOPHEN 500 MG TAB PO SCH ×3 (06:26→21:52)
[2018-06-27 06:40] LABS: PLATELET COUNT 331 10^3/uL (150-400)
[2018-06-27] MEDS: FERROUS SULFATE 325 MG TAB PO SCH (07:31)
[2018-06-27] MEDS: GABAPENTIN 300 MG CAP PO SCH ×3 (07:31→20:59)
[2018-06-27] MEDS: MULTIVITAMINS 1 EACH TAB PO SCH (07:32)
[2018-06-27] MEDS: CHOLECALCIFEROL VIT D3 2,000 UNITS TAB/CAP PO SCH (07:32)
--- NOTE | 2018-06-27 09:09 | SOAPPROG ---
SOAP Progress Note Assessment/Plan: Assessment/Plan: 38 y/o male with central cord syndrome with C4/5 and and C5/6 stenosis, chronic L4 compression fracture and right proximal humerus fx and acetabulum fx after a fall out of bed. Also with bilateral shoulder fx. Patient exam is stable, difficult to asses as he is restricted from motion above the below (unable to test biceps/deltoid) Plan: - Ortho to address right shoulder with surgery tentatively Thursday. -Normalize SBP - Goal is >100 systolic -Will continue to monitor patient pain in thoracic and lumbar spine. If complains of new symptoms there will obtain lumbar MRI -Patient may require surgical decompression of cervical spine. Given his multiple fx and Pradaxa there is concerns about bleeding and bone quality. Will monitor patient clinically and likely will consider cervical surgery as an out patient -Ok from our standpoint for Ortho surgery -Continue ICU level of care with Q1 hour neuro checks. -If he develops any new or worsening symptoms, change in neuro/motor exam please notify NS. -DW Dr. Dukes Subjective: Pain controlled. Denies any new weakness Objective: NAD A+ox3 MAEx4 5/5 and equal in BUE and BLE, can not asses delotids/biceps due to bilateral humerus fractures. No calf tenderness. 5/5 bilateral DF/PF/EHL 06/26/18 09:18 06/27/18 09:07 06/27/18 09:08 Objective: Vital Signs Temp Pulse Resp BP Pulse Ox 37 C 83 12 105/65 93 06/27/18 07:39 06/27/18 07:39 06/27/18 07:39 06/27/18 07:39 06/27/18 07:39 Laboratory Results 06/27/18 06:30 06/27/18 06:30 06/26/18 06/27/18 06/28/18 05:59 05:59 05:59 Intake Total 5553 2100.4 Output Total 6050 3650 175 Balance -767 -1549.6 -175 ICD10 Worksheet Patient Problems: Problems Problem Status Onset Fever Acute
--- NOTE | 2018-06-27 09:40 | PDINTPN ---
[facility] Progress Note Assessment/Plan: Assessment/plan: * Status post fall * C5-C6 disc herniation-per Neurosurgery -norepinephrine weaning -per Neurosurgery * Acetabular and humeral fractures. -possible surgery on Thursday * Pelvic and right shoulder fracture-severe pain with any movement. * Probable osteoporosis-Secondary to chronic steroid therapy * Ulcerative colitis-status post colectomy * Prothrombin gene mutation-this is requiring chronic anticoagulation with Pradaxa * History of mild asthma * Pain-well controlled * PT/OT-continue. Now up in chair. Extremely painful. * VT prophylaxis * Stress ulcer prophylaxis * Mild asthma-stable 06/27/18 09:38 Subjective: Sitting up in bed. Resting comfortably. No current complaints. Objective: Vital Signs Temp Pulse Resp BP Pulse Ox 37 C 83 12 105/65 93 06/27/18 07:39 06/27/18 07:39 06/27/18 07:39 06/27/18 07:39 06/27/18 07:39 Laboratory Results 06/27/18 06:30 06/27/18 06:30 06/26/18 06/27/18 06/28/18 05:59 05:59 05:59 Intake Total 2673 2100.4 Output Total 3440 3650 175 Balance -767 -1549.6 -175 - Time Spent With Patient Time Spent With Patient: 35 min of time spent with patient, over 1/2 involved coordination of care counseling. Case discussed with nursing and hospitalist Physical Exam - Physical Exam General Appearance: WD/WN, alert, no apparent distress, moderate distress Neck: non-tender, supple Respiratory: chest non-tender, lungs clear, normal breath sounds Cardiac/Chest: normal peripheral pulses, regular rate, rhythm Peripheral Pulses: 2+: carotid (R), carotid (L), femoral (R), femoral (L), dorsalis-pedis (R), dorsalis-pedis (L) Abdomen: normal bowel sounds, non-tender, soft Male Genitalia: deferred Rectal: deferred Skin: warm/dry Extremities: non-tender Neuro/Psych: alert, normal mood/affect, oriented x 3 ICD10 Worksheet Patient Problems: Problems Problem Status Onset Fever Acute
[2018-06-27] MEDS: LIDOCAINE 4%/MENTHOL 1% PATCH TD SCH (13:22)
--- NOTE | 2018-06-27 14:56 | HOSPPROG ---
Hospitalist Progress Note Assessment/Plan: 38 yo male with h/o UC s/p colectomy and ostomy with long h/o high dose steroids (now off) presented to ED after a fall out of bed while on sleeping medication. He suffered multiple fractures and C5-6 disc herniation with cord compression. Central cord syndrome in setting of C5-6 disc herniation with UE weakness and hypotension - neurosurgery involved. Patient initially requiring pressors to push MAPs > 85 but ok with lower bp now, continue q4 hour neuro checks, ok'ed by NSG to transfer to floor, they will continue to follow Hypoxemia presumed 2/2 above - now resolved and on RA Anemia: h/h have been trending down since admission, required tx 2 units PRBC on 06/25, continue to trend, occult blood negative x 3, no other s/s of active bleeding, iron studies c/w mixed picture with iron deficiency contributing, query bleed associated with initial injury Acetabular and humeral fractures - unusual to suffer these fractures from falling out of bed. Right fracture will require surgery Thursday . Left shoulder apparently non operative and will be followed by ortho for now. Osteoporosis - likely 2/2 toddler caregiver steroid use for UC, note T4-5 and L4 compression fractures which are chronic per NS -recommend outpt special education professional PE 2/2 prothrombin gene mutation - pradaxa held, last dose 3/8 PM. CTA neg for PE. -cont lovenox for now given upcoming surgery, will need to be held Thursday morning UC s/p colectomy - colostomy care LLL nodule - f/u imaging in 6 months Full code Dispo -tx to floor, patient planning to dc to IP rehab after discharge after shoulder surgery completed Subjective: no significant overnight events, patient has been able to stand briefly, pain controlled Objective: Vital Signs Temp Pulse Resp BP Pulse Ox 37 C 88 18 111/70 95 06/27/18 14:00 06/27/18 14:00 06/27/18 14:00 06/27/18 14:00 06/27/18 14:00 Laboratory Results 06/27/18 06:30 06/27/18 06:30 06/26/18 06/27/18 06/28/18 05:59 05:59 05:59 Intake Total 2673 2100.4 650 Output Total 3440 3650 825 Balance -767 -1549.6 -175 awake alert anciteric op clear rrr no mrg cta b soft ostomy with brown output no cce warm dry well perfused oriented appropriate - Time Spent With Patient Time Spent with Patient: greater than 35 minutes Time Spent with Patient: Greater than 35 minutes spent on this patients care, greater than 50% of time spent counseling, educating, and coordinating care regarding the above mentioned plan. ICD10 Worksheet Patient Problems: Problems Problem Status Onset Fever Acute
[2018-06-27] MEDS: PATCH REMOVAL 1 EA PATCH TD SCH (21:00)
[2018-06-28] MEDS: HYDROmorphONE/DILAUDID 1 MG/ML INJ IVP PRN ×3 (02:00→13:27)
[2018-06-28] MEDS: oxyCODONE IR 5 MG TAB PO PRN ×7 (02:58→21:16)
[2018-06-28] MEDS: ACETAMINOPHEN 500 MG TAB PO SCH ×3 (06:10→21:32)
[2018-06-28] MEDS: ENOXAPARIN 100 MG/ML SYR SC SCH ×2 (06:10→18:24)
--- NOTE | 2018-06-28 07:24 | SOAPPROG ---
SOAP Progress Note Assessment/Plan: Assessment: 38 yo M with chronic L4 compresion fracture and central cord stenosis from C5/6 stenosis Plan: neuro: stable and doing well overall PT/OT ortho to do surgery on arm will address cervical stenosis on outpatient basis please call with neuro changes discussed with Dr Dukes 06/28/18 07:22 Subjective: no neck pain, no new weakness. Objective: Vital Signs Temp Pulse Resp BP Pulse Ox 36.8 C 78 16 102/61 93 06/28/18 04:00 06/28/18 04:00 06/28/18 04:00 06/28/18 04:00 06/28/18 04:00 Laboratory Results 06/28/18 04:45 06/28/18 04:45 06/27/18 06/28/18 06/29/18 05:59 05:59 05:59 Intake Total 2100.4 1450 Output Total 3650 2475 Balance -1549.6 -1025 AAOx4, +FC PERRL, EOMI, no facial droop 5/5 except bilateral deltoids 3-/5 but limited by pain from ortho injuries. + light touch ICD10 Worksheet Patient Problems: Problems Problem Status Onset Fever Acute
[2018-06-28] MEDS: GABAPENTIN 300 MG CAP PO SCH ×3 (08:53→21:15)
[2018-06-28] MEDS: CHOLECALCIFEROL VIT D3 2,000 UNITS TAB/CAP PO SCH (08:54)
[2018-06-28] MEDS: MULTIVITAMINS 1 EACH TAB PO SCH (10:04)
[2018-06-28] MEDS: FERROUS SULFATE 325 MG TAB PO SCH (10:04)
[2018-06-28] MEDS: LIDOCAINE 4%/MENTHOL 1% PATCH TD SCH (11:24)
--- NOTE | 2018-06-28 12:22 | HOSPPROG ---
Hospitalist Progress Note Assessment/Plan: 38 yo male with h/o UC s/p colectomy and ostomy with long h/o high dose steroids (now off) presented to ED after a fall out of bed while on sleeping medication. He suffered multiple fractures and C5-6 disc herniation with cord compression. Central cord syndrome in setting of C5-6 disc herniation with UE weakness and hypotension - neurosurgery following. S/P 1 week on pressors to keep MAP >85 Fever likely 2/2 viral URI - remains afebrile. No e/o epidural abscess on MRI. CXR w/o infiltrate (pers reviewed/interpreted). Hypoxemia presumed 2/2 above - now on room air Acetabular fracture - unusual to suffer these fractures from falling out of bed. Discussed with Dr. Nelson, tx is non-operative, NWB x3 months. He is at risk for arthritis long-term. Humerus fracture -to OR in am -npo at midnight, hold am lovenox Osteoporosis - likely 2/2 detention steroid use for UC, note T4-5 and L4 compression fractures which are chronic per NS -recommend outpt athletic turf worker PE 2/2 prothrombin gene mutation - pradaxa held, last dose 3/8 PM. CTA neg for PE. -cont bridging with Lovenox, hold in am -resume pradaxa post-op UC s/p colectomy - colostomy care Microcytic anemia - no e/o active bleeding, iron stores low, could be residual from symptomatic UC, which has since resolved. Also possibly dilutional component. Heme neg stool. -cont oral iron -follow daily H&H LLL nodule - f/u imaging in 6 months Full code Dispo - cont inpt Subjective: Pt doing ok. Still having significant pain. No improvement in b/l UE weakness. Plans for surgery tomorrow for humerus fracture. Objective: Vital Signs Temp Pulse Resp BP Pulse Ox 36.9 C 80 14 110/65 95 06/28/18 11:16 06/28/18 11:16 06/28/18 11:16 06/28/18 11:16 06/28/18 11:16 Laboratory Results 06/28/18 04:45 06/28/18 04:45 06/27/18 06/28/18 06/29/18 05:59 05:59 05:59 Intake Total 2100.4 1450 Output Total 3650 2475 Balance -1549.6 -1025 - Physical Exam Constitutional: no apparent distress Eyes: PERRL Ears, Nose, Mouth, Throat: moist mucous membranes Cardiovascular: regular rate and rhythym Respiratory: no respiratory distress, clear to auscultation Gastrointestinal: normoactive bowel sounds, soft, non-tender abdomen Skin: warm Musculoskeletal: full muscle strength Neurologic: AAOx3 Psychiatric: interacting appropriately ICD10 Worksheet Patient Problems: Problems Problem Status Onset Fever Acute
[2018-06-28] MEDS: PATCH REMOVAL 1 EA PATCH TD SCH (21:17)
[2018-06-29] MEDS: HYDROmorphONE/DILAUDID 1 MG/ML INJ IVP PRN ×3 (00:06→14:21)
[2018-06-29] MEDS: oxyCODONE IR 5 MG TAB PO PRN ×6 (00:07→21:22)
[2018-06-29] MEDS: ACETAMINOPHEN 500 MG TAB PO SCH ×4 (06:12→21:21)
[2018-06-29] MEDS ORDERED: [UNRECOGNIZED DRUG - OTHER] IU ONE (07:00)
[2018-06-29] MEDS ORDERED: EPINEPHRINE IU ONE (07:00)
[2018-06-29] MEDS ORDERED: ROPIVACAINE IU ONE (07:00)
[2018-06-29] MEDS ORDERED: ceFAZolin 2 GM/DEXTROSE 100 ML IV ONE (07:00)
[2018-06-29] MEDS ORDERED: KETOROLAC TROMETHAMINE IU ONE (07:00)
--- NOTE | 2018-06-29 07:03 | PDHPUP ---
History & Physical Update H&P update statement: This history and physical update is based on an assessment of the patient which was completed after admission or registration (within 24 hours), but prior to the surgery/procedure. H&P update: H&P reviewed & patient examined, no change in patient's condition since H&P completed
[2018-06-29] MEDS ORDERED: LR 1,000 ML IV ONE (07:12)
[2018-06-29] MEDS ORDERED: BUPIVACAINE/EPI 0.5% 30 ML SDV ONE (07:35)
[2018-06-29] MEDS ORDERED: BACITRACIN 50,000 UNITS/10 ML SYR IRR ONE (07:36)
[2018-06-29] MEDS ORDERED: fentaNYL 100 MCG/2 ML INJ ONE (08:08)
[2018-06-29] MEDS ORDERED: REMIFENTANIL HCL 1 MG VIAL ONE ×2 (08:08→10:27)
[2018-06-29] MEDS ORDERED: PROPOFOL/EMULSION 500 MG/50 ML BOTTLE IV ONE ×2 (08:09→10:27)
[2018-06-29] MEDS ORDERED: ONDANSETRON 4 MG/2 ML VIAL ONE (08:09)
[2018-06-29] MEDS ORDERED: DEXAMETHASONE 4 MG/ML VIAL ONE ×2 (08:09)
[2018-06-29] MEDS ORDERED: LIDOCAINE 2% 100 MG/5 ML SYR ONE (08:13)
--- NOTE | 2018-06-29 09:09 | PDANEPAE ---
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 Hx DVT/PE - Chronic Pain History Chronic Pain: No - Surgical History Prior Surgeries: colectomy ANE Review of Systems Review of Systems: - Exercise capacity Exercise capacity: >=4 METS ANE Patient History - Allergies Allergies/Adverse Reactions: No Known Allergies Allergy (Verified 06/19/18 09:05) - Home Medications Home medications: home medication list seen and reviewed Home Medications: Dabigatran Etexilate Mesylate [Pradaxa] 75 mg PO BID 01/11/18 [Last Taken pm] Acetaminophen [Tylenol 325mg (*)] 650 mg PO Q6 PRN 06/19/18 [Last Taken Unknown] Albuterol [Proventil Inhaler HFA (*)] 1 - 2 puffs IH Q4H PRN 06/19/18 [Last Taken Unknown] Multivitamins [Multivitamin (*)] 1 each PO DAILY 06/19/18 [Last Taken Unknown] - NPO status NPO Since - Liquids (Date): 06/28/18 NPO Since - Liquids (Time): 23:55 NPO Since - Solids (Date): 06/28/18 NPO Since - Solids (Time): 20:00 - Smoking Hx Smoking Status: Never smoked - Alcohol Use Alcohol Use: Occasionally - Family Anes Hx Family Anes Hx: none ANE Labs/Vital Signs - Labs Result Diagrams: 06/29/18 05:00 06/29/18 05:00 - Vital Signs Blood Pressure: 109/61 Heart Rate: 86 Respiratory Rate: 16 O2 Sat (%): 94 Height: 193.04 cm Weight: 88.451 kg ANE Physical Exam - Airway Neck exam: FROM (cervical HNP now stable) Mallampati Score: Class 2 Mouth exam: normal dental/mouth exam - Pulmonary Pulmonary: no respiratory distress - Cardiovascular Cardiovascular: regular rate and rhythym - ASA Status ASA Status: III ANE Anesthesia Plan Anesthesia Plan: general endotracheal anesthesia (no block with CVP in R IJ ) Urgent/Emergent Case: Viral pierce completed preop but documented later for safe timely pt care
[2018-06-29] MEDS ORDERED: PHENYLEPHRINE HCL 100 MCG/ML SYR ONE (10:36)
--- NOTE | 2018-06-29 10:51 | NEUSURGPN ---
Assessment/Plan: 38y/o male with central cord syndrome with C4/5 and and C5/6 stenosis, chronic L4 compression fracture and right proximal humerus fx and acetabulum fx after a fall out of bed. Also with bilateral shoulder fx. Plan: -Patient going to OR today with Ortho for right prox humerus repair -Deltoid weakness minimally improved, discussed with patient that this could take time to improve with central cord syndrome. Exam of deltoids is limited due to fractures. -Patient may require surgical decompression of cervical spine. We will have the patient follow up in the office with Dr Dukes in 2 weeks to eval and discuss. -Discussed with Dr. Dukes -Neurosurgery will sign off -If he develops any new or worsening symptoms, change in neuro/motor exam please notify NS. Subjective: Getting ready for ortho surgery, deltoids weak Objective: AAOx4 PERRL, EOMI, no facial droop 5/5 except bilateral deltoids 3-/5 but limited by pain from ortho injuries. + light touch Neuro Check Frequency: per routine Urinary Catheter in Place: No - Physician Discussed Patient with Dr.: Dukes Neurosurgery Physical Exam - Vitals, I&O, Labs I and O 06/28/18 06/29/18 06/30/18 05:59 05:59 05:59 Intake Total 1450 Output Total 2475 1250 Balance -1025 -1250 Weight 88.451 kg Intake: Oral (ml) 1450 Output: Urine (ml) 2475 1150 Ileostomy 1400 400 Urinal 1075 750 Liquid Stool (ml) 100 Colostomy 100 Other: Intake Quantity Yes Sufficient Number of Voids Ileostomy 1 1 Urinal 1 Number of Stools Colostomy 1 Vital Signs Temp Pulse Resp BP Pulse Ox 37.0 C 86 16 109/61 94 06/29/18 07:23 06/29/18 09:08 06/29/18 09:08 06/29/18 09:08 06/29/18 09:08 Laboratory Results 06/29/18 05:00 06/29/18 05:00 ICD10 Worksheet Patient Problems: Problems Problem Status Onset Fever Acute
[2018-06-29] MEDS ORDERED: PROMETHAZINE HCL 25 MG/ML INJ IVP PRN (11:45)
[2018-06-29] MEDS ORDERED: METOCLOPRAMIDE 10 MG/2 ML VIAL IVP PRN (11:45)
[2018-06-29] MEDS ORDERED: LR 500 ML IV PRN (11:45)
[2018-06-29] MEDS ORDERED: oxyCODONE IR 5 MG TAB PO PRN (11:45)
[2018-06-29] MEDS ORDERED: fentaNYL 100 MCG/2 ML INJ IVP PRN (11:45)
[2018-06-29] MEDS ORDERED: ACETAMINOPHEN 500 MG TAB PO PRN (11:45)
[2018-06-29] MEDS ORDERED: PHENYLEPHRINE HCL 100 MCG/ML SYR IVP PRN (11:45)
[2018-06-29] MEDS ORDERED: MEPERIDINE 25 MG/0.5 ML AMP IVP PRN (11:45)
[2018-06-29] MEDS ORDERED: DEXAMETHASONE 4 MG/ML VIAL IVP PRN (11:45)
[2018-06-29] MEDS ORDERED: LABETALOL HCL 5 MG/ML 20 ML MDV IVP PRN (11:45)
[2018-06-29] MEDS ORDERED: HYDROCODONE/APAP 5/325 TAB PO PRN (11:45)
[2018-06-29] MEDS ORDERED: ONDANSETRON 4 MG/2 ML VIAL IVP PRN (11:45)
[2018-06-29] MEDS ORDERED: ALBUTEROL 3 ML DEYVIAL IH PRN (11:45)
[2018-06-29] MEDS ORDERED: NALOXONE HCL 0.4 MG/ML INJ IVP PRN (11:45)
[2018-06-29] MEDS: CHOLECALCIFEROL VIT D3 2,000 UNITS TAB/CAP PO SCH (11:55)
[2018-06-29] MEDS: FERROUS SULFATE 325 MG TAB PO SCH (11:55)
[2018-06-29] MEDS: GABAPENTIN 300 MG CAP PO SCH ×3 (11:57→21:22)
[2018-06-29] MEDS: MULTIVITAMINS 1 EACH TAB PO SCH (11:57)
[2018-06-29] MEDS: LIDOCAINE 4%/MENTHOL 1% PATCH TD SCH (11:57)
--- NOTE | 2018-06-29 12:50 | POSTANESTH ---
Post Anesthetic Evaluation Cardiovascular Status: Normal, Stable Respiratory Status: Normal, Stable, Tx Decrease in SpO2 Level of Consciousness/Mental Status: Can Participate in Eval Pain Control: Adequate, Prn Tx Ordered Nausea/Vomiting Control: Adequate, Prn Tx Ordered Complications Possibly Related to Anesthesia: None Noted
--- NOTE | 2018-06-29 14:03 | GOP ---
[f rep st] OPERATIVE REPORT DATE OF OPERATION: SURGEON: Miles Nelson MD ANESTHESIA: General. PREOPERATIVE DIAGNOSIS: Right 3-part proximal humerus fracture. POSTOPERATIVE DIAGNOSIS: Right 3-part proximal humerus fracture. PROCEDURE PERFORMED: 1. Open reduction, internal fixation of right 3-part proximal humerus fracture. 2. R bicep tenodesis ASSIST: Zelalem Quispe was the medical office assistant instructor for this case. A medical office assistant instructor was medically necessary for retraction and the safe and successful completion of the surgery. FINDINGS: ESTIMATED BLOOD LOSS: 200 cc. INDICATIONS: The patient is a 38-year-old male who I saw as a consult last Thursday after he was admitted to the ED with bilateral arm pain and weakness and right hip pain. He is unsure of what happened to him. He believes he may have fallen. In the fall, he sustained a right acetabular fracture, which I planned treating nonoperatively. During that week in the ICU for monitoring due to the development of central cord syndrome, during the time there, proximal humerus fracture on both sides were identified. I ordered CT scans of both. The CT scan of the right side showed a displaced right 3-part proximal humerus fracture. There was displacement of the lesser tuberosity fragment. The left proximal humerus fracture was a similar pattern, however, minimally displaced, and the stable fracture was amenable to nonoperative treatment, as well. I planned on treating the left proximal humerus fracture nonoperatively. Due to displacement, ORIF was indicated for the right proximal humerus fracture. I discussed with him risks and benefits. Risks include pain, bleeding, infection, damage to surrounding structures, need for further operations, delayed union, nonunion, screw cut-out, avascular necrosis, the need for further surgery including shoulder placement or implant removal, stiffness, weakness. I think in his case, the risk of AVN or screw cut-out is particularly high as he was on a high dose of prednisone prior to his total colectomy last December. This may have precipitated osteoporosis that caused his current fractures. However, with his age, I would recommend trying to save the proximal humerus and giving an attempt with ORIF rather than a replacement for somebody his age. DESCRIPTION OF PROCEDURE: The patient was seen in preop holding area. He was given the opportunity to ask more questions. All questions answered. Consent was signed. Surgical site was marked. He was transferred to the operative suite. General anesthesia was induced on the [facility]. Time-out was called, including surgical and anesthesia teams, confirming the surgical site and procedure to be performed. He was carefully moved from the rney to the operating room table. Great care was taken to ensure that all broken extremities were protected. He was carefully placed in a semi beach chair position. Great care was taken to ensure that all bony prominences were padded in this position, that his head was well padded, that his eyes were well padded , and his head was well secured. Prior to prepping and draping, I took fluoroscopic images to ensure that we get a good view. Then, I prepped and draped in the usual sterile fashion. Two grams of Ancef were given prior to incision. Time-out was called, including surgical and anesthesia teams, confirming the surgical site and procedure to be performed. The right upper extremity was prepped and draped in the usual sterile fashion. I began with making a standard deltopectoral incision. I performed a standard deltopectoral approach, retracted the vein medially to visualize the deltopectoral interval. Clearing off the clavipectoral fascia, I opened up the subdeltoid and subacromial spaces using retractors. I placed a self-retaining retractor and brought the deltoid retractor over the head. At first, I attempted to identify the bicipital groove, however, his fracture involved the groove. I then identified the biceps distal to the groove. I opened up the biceps, opened up the bicipital sheath, opened up the rotator interval. I then cut the biceps short to tenodese it to the pec at the proximal tendon. It required a tenodesis as it was in the zone of injury. I cut the remainder of the biceps tendon short, cut it off the glenoid. I turned my attention to the fracture. I did mobilize the fracture with a Torres. There was a very large lesser tuberosity fragment that went into the humeral head. This was essentially almost a variant of a head split. I then used a Torres to elevate the articular surface portion of the injury until I had both the greater tuberosity and the articular surface fragments mobilized. I then held them immobilized with allograft bone. Then I chose a 3-hole Synthes proximal humerus plate. I placed the plate over the bone in the appropriate location, held it with K-wires , placed a cortical screw into the shaft to hold it down to the bone. When I was happy with the position, I then placed several #5 FiberWire sutures through the rotator cuff tendons. I had 2 through the lesser tuberosity, and I used these to mobilize the fracture fragment. This was a very large lesser tuberosity fragment, again. I mobilized it as well as I could. At first, I held it to the bone with K-wires and a stemless screw. I checked its reduction and I was not happy with the reduction. It appeared too high. So then I took everything out and re-reduced. I was able to improve the reduction. I then tied several sutures to the plate to hold it there, and then I placed several K- wires to maintain the reduction. Then I began placing the locking screws into the head to capture this fragment. I placed all these short of the articular surface using the balance technique, and I kept checking x-rays to ensure my reduction was maintained and that all screws were short of the articular surface. This was done after tamping of the fracture with allograft cancellous bone graft. I checked the reduction and screw lengths. There were 2 screws that were long. These were removed and changed until I knew they were short. He had some cortical fragments just inferior to the lesser tuberosity. I think these are outside the joint and uninvolved, and it would take more work and dissection to try grab them and free them up. I decided to leave them alone. I placed the arm through a range of motion, and there was a smooth range of motion. I then again checked my final reduction with the fluoroscopy. I was happy with the final reduction. I irrigated copiously with sterile saline. I placed several sutures through the bone of the biceps groove and tied these down , as well. This helped maintain reduction. Then, I placed another suture through the subscap and through the infraspinatus, and tied it to themselves across the plate. At this point, I irrigated copiously with sterile saline. I then closed by marking the rotator interval with a #2 FiberWire, and then I closed with 2-0 Vicryl and 2-0 Monocryl in layers. The final layer was rosario. IMPLANTS USED: Synthes proximal humerus plating system, stemless. POSTOPERATIVE CONDITION: Stable. POSTOPERATIVE PLAN: The patient was re-admitted to the internal medicine service. I will follow him while he is in the hospital. He is likely going to a rehab facility. He should follow up with me in 2 weeks. /[id number]/[id number]
--- NOTE | 2018-06-29 14:41 | HOSPPROG ---
Hospitalist Progress Note Assessment/Plan: 38 yo male with h/o UC s/p colectomy and ostomy with long h/o high dose steroids (now off) presented to ED after a fall out of bed while on sleeping medication. He suffered multiple fractures and C5-6 disc herniation with cord compression. First encounter, chart reviewed. #Central cord syndrome in setting of C5-6 disc herniation with UE weakness and hypotension -neurosurgery following. -S/P 1 week on pressors to keep MAP >85 #Fever likely 2/2 viral URI - remains afebrile. -No e/o epidural abscess on MRI. -CXR w/o infiltrate (pers reviewed/interpreted). #Hypoxemia presumed 2/2 above - now on room air #Acetabular fracture -unusual to suffer these fractures from falling out of bed. -Dr. Nelson, tx is non-operative, NWB x3 months. -He is at risk for arthritis long-term. 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 CTA neg for PE. -cont bridging with Lovenox, hold in am -resume pradaxa post-op #UC s/p colectomy -colostomy care #Microcytic anemia -no e/o active bleeding, iron stores low, could be residual from symptomatic UC , which has since resolved. -Also possibly dilutional component. Heme neg stool. -cont oral iron -follow daily H&H #LLL nodule -f/u imaging in 6 months Full code Dispo - cont inpt Subjective: Waiting for surgery. Some pain. Objective: Vital Signs Temp Pulse Resp BP Pulse Ox 36.9 C 84 16 111/62 97 06/29/18 14:30 06/29/18 14:30 06/29/18 14:30 06/29/18 14:30 06/29/18 14:30 Laboratory Results 06/29/18 12:35 06/29/18 05:00 06/28/18 06/29/18 06/30/18 05:59 05:59 05:59 Intake Total 1450 25 Output Total 2475 1250 125 Balance -1025 -1250 -100 - Physical Exam Constitutional: no apparent distress, chronically ill appearing, uncomfortable Eyes: PERRL, anicteric sclera, EOMI Ears, Nose, Mouth, Throat: moist mucous membranes, hearing normal, ears appear normal Cardiovascular: No JVD, No tachycardia, No edema Respiratory: no respiratory distress, no rales or rhonchi, reduced air movement Gastrointestinal: No tenderness, No ascites, No distension Skin: warm, normal color, No mottled Musculoskeletal: joint tenderness, pain with ROM, generalized weakness, No normal joint ROM Neurologic: AAOx3 Psychiatric: not anxious, not encephalopathic, thought process linear ICD10 Worksheet Patient Problems: Problems Problem Status Onset Fever Acute
--- NOTE | 2018-06-29 14:54 | ASMTCMCOM ---
CM Note CM Note Notes: Pt to OR today for ortho surgery. Sophie has authorized [facility] inpatient rehab if pt admits by 07/01/18, if pt is not medically ready by then new auth is needed. CM to follow. D/c plan: [facility] inpatient rehab Date Signed: 06/29/2018 02:53 PM Electronically Signed By:JOSELIN Gonzalez
[2018-06-29] MEDS: PATCH REMOVAL 1 EA PATCH TD SCH (21:22)
[2018-06-29] MEDS: ceFAZolin 2 GM/DEXTROSE 100 ML IV SCH (22:57)
[2018-06-30] MEDS: oxyCODONE IR 5 MG TAB PO PRN ×7 (00:26→21:45)
[2018-06-30] MEDS: ENOXAPARIN 100 MG/ML SYR SC SCH ×2 (05:53→17:18)
[2018-06-30] MEDS: ceFAZolin 2 GM/DEXTROSE 100 ML IV SCH (05:53)
[2018-06-30] MEDS: ACETAMINOPHEN 500 MG TAB PO SCH ×3 (05:53→21:45)
--- NOTE | 2018-06-30 07:54 | SOAPPROG ---
SOAP Progress Note Assessment/Plan: Assessment:R acetabular fx -being treated for central cord syndrome by nsgy team -strict NWB. Plan non-op treatment as articular surface congruent. He understands risks of displacement that may necessitate surgery. R proximal humerus fx -POD#1 s/p ORIF -Doing well. Hct stable L proximal humerus fx -CT scan reviewed. The greater and lesser tuberosity fractures are both minimally displaced. There may be some humeral head impaction , but this is minimal. No signs of AVN -plan non-op tx. Elbow, wrist and hand ROM ok. No active ROM of shoulder Plan: -strict NWB RLE -NWB RUE, UE -PT/OT -pain ctrl -DVT prophy -appreciate care of icu and medical teams -Xrays of R hip today to eval fx stability after mobilization with PT during his hospital stay. I will review -He is stable for d/c to rehab Subjective: "Feels better than before surgery" Doing well this am. Pain well controlled. Eager to go to rehab Objective: Vital Signs Temp Pulse Resp BP Pulse Ox 36.8 C 87 17 102/54 L 98 06/30/18 07:22 06/30/18 07:22 06/30/18 07:22 06/30/18 07:22 06/30/18 07:22 Laboratory Results 06/30/18 04:14 06/30/18 04:14 06/29/18 06/30/18 07/01/18 05:59 05:59 05:59 Intake Total 225 300 Output Total 1250 2350 Balance -1250 -2125 300 R shoulder -dressing c/d/i -NV intact - Time Spent With Patient Time Spent With Patient: 15m ICD10 Worksheet Patient Problems: Problems Problem Status Onset Fever Acute
[2018-06-30] MEDS: CHOLECALCIFEROL VIT D3 2,000 UNITS TAB/CAP PO SCH (08:06)
[2018-06-30] MEDS: FERROUS SULFATE 325 MG TAB PO SCH (08:06)
[2018-06-30] MEDS: GABAPENTIN 300 MG CAP PO SCH ×3 (08:07→21:45)
[2018-06-30] MEDS: MULTIVITAMINS 1 EACH TAB PO SCH (08:07)
[2018-06-30] MEDS: LIDOCAINE 4%/MENTHOL 1% PATCH TD SCH (08:07)
--- NOTE | 2018-06-30 13:43 | HOSPPROG ---
Hospitalist Progress Note Assessment/Plan: 38y/o male with central cord syndrome with C4/5 and and C5/6 stenosis, chronic L4 compression fracture and right proximal humerus fx and acetabulum fx after a fall out of bed. Also with bilateral shoulder fx. First encounter, chart reviewed. #Central cord syndrome in setting of C5-6 disc herniation with UE weakness and hypotension -neurosurgery following. -S/P of being on pressors to keep MAP >85 -will have close f/u with neurosurgery #Fever likely 2/2 viral URI -remains afebrile. -No e/o epidural abscess on MRI. -CXR w/o infiltrate #Hypoxemia presumed 2/2 above - now on room air #Acetabular fracture -unusual to suffer these fractures from falling out of bed. -Dr. Nelson, tx is non-operative, NWB x3 months. -He is at risk for arthritis long-term. #R proximal Humerus fracture -s/p ORIF -NWB #left proximal humerus fx -minimally displaced -no surgery -no active ROM -NWB *leukocytosis -concerning w hx of c diff a year ago -colostomy without increase output -will check a ua for completeness sake, lungs are clear, on room air, afebrile #Osteoporosis -likely 2/2 terminal carman steroid use for UC -note T4-5 and L4 compression fractures which are chronic per NS -recommend outpt advanced practice nurse psychotherapist #PE 2/2 prothrombin gene mutation -on therapeutic Lovenox #UC s/p colectomy -colostomy #Microcytic anemia -no e/o active bleeding, iron stores low, could be residual from symptomatic UC , which has since resolved. -also w recent surgery, had a drop in his levels -cont oral iron #LLL nodule -f/u imaging in 6 months #plan: recheck cbc in a.m., if improved; will dc to IP rehab Subjective: Vamshi is anxious to go to rehab, but understands why he didn't get dc. Pain is controlled during my interview Objective: Vital Signs Temp Pulse Resp BP Pulse Ox 36.8 C 86 17 110/67 100 06/30/18 11:14 06/30/18 11:14 06/30/18 11:14 06/30/18 11:14 06/30/18 11:14 Laboratory Results 06/30/18 04:14 06/30/18 04:14 06/29/18 06/30/18 07/01/18 05:59 05:59 05:59 Intake Total 225 300 Output Total 1250 2350 350 Balance -1250 -2125 -50 - Physical Exam Constitutional: appears nourished Eyes: PERRL Ears, Nose, Mouth, Throat: hearing normal Cardiovascular: regular rate and rhythym Respiratory: no respiratory distress Gastrointestinal: normoactive bowel sounds, other (colostomy w loose stool) Skin: warm Musculoskeletal: muscular tenderness, generalized weakness, other (good cms to both hands) Neurologic: AAOx3 Psychiatric: interacting appropriately ICD10 Worksheet Patient Problems: Problems Problem Status Onset Fever Acute
[2018-06-30] MEDS ORDERED: HYDROmorphONE/DILAUDID 1 MG/ML INJ IVP ONE (16:11)
[2018-06-30] MEDS: PATCH REMOVAL 1 EA PATCH TD SCH (21:56)
[2018-06-30] MEDS ORDERED: HYDROmorphONE/DILAUDID 1 MG/ML INJ IVP PRN (23:54)
[2018-07-01] MEDS: oxyCODONE IR 5 MG TAB PO PRN ×3 (01:31→13:56)
[2018-07-01] MEDS: ENOXAPARIN 100 MG/ML SYR SC SCH (05:52)
[2018-07-01] MEDS: ACETAMINOPHEN 500 MG TAB PO SCH (05:52)
[2018-07-01 07:22] VITALS: BP 111/56
[2018-07-01 08:07] LABS: PLATELET COUNT 566 10^3/uL (150-400)
--- NOTE | 2018-07-01 08:13 | HOSPPROG ---
Hospitalist Progress Note Assessment/Plan: 38y/o male with central cord syndrome with C4/5 and and C5/6 stenosis, chronic L4 compression fracture and right proximal humerus fx and acetabulum fx after a fall out of bed. Also with bilateral shoulder fx. #Central cord syndrome in setting of C5-6 disc herniation with UE weakness and hypotension -neurosurgery following. -S/P of being on pressors to keep MAP >85 -will have close f/u with neurosurgery #Fever likely 2/2 viral URI -remains afebrile. -No e/o epidural abscess on MRI. -CXR w/o infiltrate #Hypoxemia presumed 2/2 above - now on room air #Acetabular fracture -unusual to suffer these fractures from falling out of bed. -Dr. Nelson, tx is non-operative, NWB x3 months. -He is at risk for arthritis long-term. 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 -also w recent surgery, had a drop in his levels -cont oral iron #LLL nodule -f/u imaging in 6 months #plan: dc today to IP rehab w close f/u with orthopedics and neurosurgery Subjective: Vamshi has no complaints. Objective: Vital Signs Temp Pulse Resp BP Pulse Ox 37.1 C 93 12 111/56 L 93 07/01/18 07:21 07/01/18 07:21 07/01/18 07:21 07/01/18 07:21 07/01/18 07:21 Laboratory Results 07/01/18 07:30 06/30/18 04:14 06/30/18 07/01/18 07/02/18 05:59 05:59 05:59 Intake Total 225 1300 Output Total 2350 2075 Balance -2125 -775 - Physical Exam Constitutional: no apparent distress Eyes: PERRL Ears, Nose, Mouth, Throat: ears appear normal Respiratory: no respiratory distress Skin: warm Neurologic: AAOx3 Psychiatric: interacting appropriately ICD10 Worksheet Patient Problems: Problems Problem Status Onset Fever Acute
--- NOTE | 2018-07-01 08:53 | PDIAF ---
- Diagnosis Diagnosis: central cord syndrome, acetabular fx, r proximal humerus fx, l humerus fx Code Status: Full Code - Medication Management Discharge Medications: electronically signed and located in the Home Medication List. - Orders Services needed: Physical Therapy, Occupational Therapy Isolation Type: Droplet Isolation Diet Recommendation: no restrictions on diet Diet Texture: Regular Texture Diet Additional Instructions: Follow up with Endocrinology, Dr. Jonah Mathew. Ortho -NWB RUE, LUE, RLE -ROM of elbow, wrist, hand, knee, ankle ok -Sling all times except hygiene for RUE, then may start gentle PROM (proximal humerus protocol). No AROM for 6 wks. No ER past neutral for first 6 wks. -Dry dressing as needed to R shoulder -F/u with Dr. Nelson in clinic in 2 wks. Arrive at least 1 hour early for xrays you have a left upper lung node nodule; will need a repeat CT of your chest if the next few months - Labs/Radiology BMP Date: 07/05/18 CBC w/diff Date: 07/05/18 - Follow Up Care Current Providers and Referrals: Tad Mathew MD [Medical Doctor] - Oc Dukes MD [Medical Doctor] - follow up in 2 weeks (call for appt. You were treated for central cord syndrome. Discuss plan for possible surgery on spine in the out-pt setting) Patient,NotPresent [Unknown] - As per Instructions Miles Nelson MD [Medical Doctor] - follow up in 2 weeks (2-[address] Nelson or Geneva Mazariegos. maintain non wiehgt bearing to all fractured extremities (R upper, L upper, R lower))
[2018-07-01] MEDS: CHOLECALCIFEROL VIT D3 2,000 UNITS TAB/CAP PO SCH (09:24)
[2018-07-01] MEDS: LIDOCAINE 4%/MENTHOL 1% PATCH TD SCH (09:25)
[2018-07-01] MEDS: MULTIVITAMINS 1 EACH TAB PO SCH (09:25)
[2018-07-01] MEDS: FERROUS SULFATE 325 MG TAB PO SCH (09:25)
[2018-07-01] MEDS: GABAPENTIN 300 MG CAP PO SCH (09:25)
--- NOTE | 2018-07-01 09:43 | GDS ---
[f rep st] DISCHARGE SUMMARY DISCHARGE DIAGNOSES: 1. Central cord syndrome in the setting of C5-C6 disk herniation. 2. Fever, likely secondary to a viral upper respiratory illness. 3. Hypoxemia, resolved. 4. Acetabular fracture. 5. Right proximal humerus fracture. 6. Left proximal humerus fracture. 7. Leukocytosis. 8. Osteoporosis. 9. Pulmonary emboli secondary to prothrombin gene mutation. 10. Ulcerative colitis status post colectomy. 11. Microcytic anemia. 12. Left lower lobe nodule. CONSULTATION: 1. Nuris Hernadez, nurse practitioner, with neurosurgical services. 2. Dr. Miles Nelson with orthopedic services. 3. Dr. Hector Metzger with the professional tutor team. 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 He has a history of PE secondary to prothrombin gene mutation. He recently changed his shift at work and took some NyQuil to help him sleep. He fell out of bed where his found him on the floor. He got up and got himself back into bed, was experiencing terrible pain. He presented to the emergency room with bilateral upper extremity weakness as well as low back and right leg pain. He underwent thoracic and cervical spine as well as CT of the abdomen which showed a compression fracture at T4 and T5 and L4. He was seen and evaluated by the neurosurgical team. It was noted that he had a central cord syndrome. He was placed in the ICU with a goal of keeping his mean arterial pressure greater than 85. He stabilized, and he did not have any type of intervention to his back. It was noted he had multiple other fractures. He was seen and evaluated by Dr. Nelson. It was noted that he had a right acetabulum fracture, and the goal is for him to be strict nonweightbearing. He also had a right proximal humerus fracture in which he had an ORIF. It was also noted that he had a left proximal humerus fracture that was minimally displaced. It was nonoperative treatment. Also of concern, he had elevated white blood cell counts during his stay. They have trended down. He has been afebrile. Will have this monitored in the outpatient setting. He will follow up with the different specialties after he finishes getting his strength at inpatient rehabilitation. HOSPITAL COURSE PER PROBLEM: 1. Central cord syndrome. This is in the setting of C5-C6 disk herniation with upper extremity weakness and hypotension. He was in the ICU and had pressors to keep his mean arterial pressure greater than 85. He will follow up with Neurosurgery. He will likely need surgery for this. 2. Fever. This is likely secondary to a viral upper respiratory infection. He has been afebrile. The MRI was performed that showed no etiology of epidural abscess. His chest x-ray was without infiltrate. 3. Hypoxemia, resolved. 4. Acetabular fracture. Dr. Nelson recommended nonweightbearing x3 months. He is at risk of arthritis. 5. Right proximal humerus fracture. He is status post ORIF, nonweightbearing. 6. Left proximal humerus fracture, minimally displaced. No surgery. 7. Leukocytosis, trending down. We will have this rechecked at the inpatient rehabilitation. 8. Osteoporosis. Recommending outpatient Endocrinology. 9. PE. This is secondary to prothrombin gene mutation. We will resume his Pradaxa today. 10. Ulcerative colitis. He is status post colectomy. 11. Microcytic anemia, stable. He has had a drop in his hemoglobin, hematocrit , but they stabilized. 12. Left lower lobe nodule. Followup imaging in 6 months. DISCHARGE CONDITION: Stable. Blood pressure is 111/56, heart rate 93, respiratory rate of 12, O2 saturation on room air 93%, temperature 37.1 Celsius. MEDICATIONS AT DISCHARGE: Please see the EMR. DISCHARGE INSTRUCTIONS: 1. Follow up with Endocrinology. 2. Detailed instructions have been written out by Orthopedics. 3. He has a left lower lung nodule. He will need a repeat CT of his chest in the next few months. Greater than 30 minutes discharging and coordinating his care. /[id number]/MODL MTDD
--- NOTE | 2018-07-01 10:12 | ASMTLACE ---
LACE Length of stay for Answers: 7-13 days current admission Acuity / Level of Answers: Yes Care: Did the patient have an inpatient admission? Comorbidities - select Answers: Other Notes: ulcerative colitis all that apply # of Emergency department Answers: 1-2 visits in the last 6 months Score: 10 Date Signed: 07/01/2018 10:12 AM Electronically Signed By:Beti Tom RN
--- NOTE | 2018-07-01 10:25 | ASMTDCNOTE ---
Case Management Discharge Discharge Order Complete? Answers: Yes Patient to Obtain Answers: Other Notes: Inpt Rehab Medications Transportation Arranged Answers: Other Notes: [employer] Transport Transport will Pick (Date 07/01/2018 01:00 PM & Time) Faxed Final Orders Answers: Yes Agency/Facility Transfer Answers: Yes Report Printed & Faxed to Receiving Agency Family Notified Answers: Yes Discharge Comments Notes: D/w MANAGER [employer]LEGE, final orders faxed. Rehana at Inpt Rehab notified, RN to call report. Pt and josh for $65 for transport. Date Signed: 07/01/2018 10:24 AM Electronically Signed By:Beti Tom RN
--- NOTE | 2018-07-01 15:30 | ASDISCHSUM ---
Discharge Information Plan Status: Medically Cleared to Leave: Discharge Date:07/01/2018 02:16 PM CM D/C Disposition: ADT D/C Disposition:[facility] IP Projected Discharge Date:07/01/2018 11:00 AM Transportation at D/C: Discharge Delay Reason: Follow-Up Date:07/01/2018 11:00 AM Discharge Slot: Final Diagnosis: Placement Information Referral Type:Rehabilitation Hospital Referral ID:[id number] Provider Name:[facility]patient [facility] Address 1:[address] Phone Number: Address 2: Fax Number: [facility]:[place] Selection Factors: State:[place] Patient Contact Information Contact Name:SUNIL Relationship: Address:[address] Work Phone: City:[place] Alternate Phone: State/Zip Code:[place] [address] Email: Financial Information Financial Class:Sophie [place] Primary Plan Desc:[facility] Primary Plan Number:[id number] Secondary Plan Desc: Secondary Plan Number: Assessment Information LACE LACE Length of stay for Answers: 7-13 days current admission Acuity / Level of Answers: Yes Care: Did the patient have an inpatient admission? Comorbidities - select Answers: Other Notes: ulcerative colitis all that apply # of Emergency department Answers: 1-2 visits in the last 6 months Score: 10 Date Signed: 07/01/2018 10:12 AM Electronically Signed By:Beti Tom RN [facility] Progress Note CM Azael MENJIVAR Note Notes: Patient chart reviewed for discharge planning purposes. 38 year old male with history of ulcerative colitis. Questionable s/p fall and left leg pain. Lives with . CM to follow for needs. Plan: TBD Date Signed: 06/20/2018 12:00 PM Electronically Signed By:Ruth Napoles RN [facility] CM Progress Note CM Note CM Note Notes: Pt discussed in multi-discipline rounds w/ Selina present. Met with Selina who expressed concerns about the expense of Pt being in the hospital and then going to IP rehab. I contacted [facility] IP Rehab admit coordinator Rehana who informed me the Pts insurance has a $500 deduction, a 90/10% once he meets $500, and 10% up to $3500, then insurance pays 100%. The deductions are often met before the Pt even comes to Rehab. I attempt to convey this information to Selina angela but, she was not on the unit. CM will meet with Selina 06/24/18. Rehana asked if we have a sense that the Pt maybe medically clear for discharge to please give her a heads up ASHLIE. Pt lives with his in an apartment in [place] and they have an 8yr old son. CM will continue to monitor needs. PLAN: TBD Date Signed: 06/23/2018 09:04 PM Electronically Signed By:Carolynn Hayden [facility] CM Progress Note CM Note CM Note Notes: Pt Discussed in rounds. Pt continue to have blood pressure issues and may go to surgery on Thu. [facility] IP Rehab continues to monitor progress. CM will continue to monitor needs. PLAN: Likely to [facility] IP rehab when medically cleared Date Signed: 06/25/2018 12:09 PM Electronically Signed By:Carolynn Hayden [facility] CM Progress Note CM Note CM Note Notes: Pt to OR today for ortho surgery. Florianmadeleine has authorized [facility] inpatient rehab if pt admits by 07/01/18, if pt is not medically ready by then new auth is needed. CM to follow. D/c plan: [facility] inpatient rehab Date Signed: 06/29/2018 02:53 PM Electronically Signed By:JOSELIN Gonzalez Case Management Discharge Plan Note Case Management Discharge Discharge Order Complete? Answers: Yes Patient to Obtain Answers: Other Notes: [facility] Re[facility] Medications Transportation Arranged Answers: Other Notes: [employer] Transport Transport will Pick (Date 07/01/2018 01:00 PM & Time) Faxed Final Orders Answers: Yes Agency/Facility Transfer Answers: Yes Report Printed & Faxed to Receiving Agency Family Notified Answers: Yes Discharge Comments Notes: D/w [employer], final orders faxed. Rehana at Inpt Rehab notified, RN to call report. Pt and josh for $65 for transport. Date Signed: 07/01/2018 10:24 AM Electronically Signed By:Beti Tom RN Intervention Information
== END 2018-07-01 14:16 | DRG 492 ==
LOC: EDUNIT# → F3N 14:37 → F2N 06-20 12:49 → F3N 06-27 18:06
PROVIDERS: ADMIT Internal Medicine; ATTEND Internal Medicine
PROC: 03HC33Z Insertion of Infusion Device into Left Radial Artery, Percutaneous Approach (ICD-10-PCS; 2018-06-20)
PROC: 05HM33Z Insertion of Infusion Device into Right Internal Jugular Vein, Percutaneous Approach (ICD-10-PCS; 2018-06-20)
PROC: 30233N1 Transfusion of Nonautologous Red Blood Cells into Peripheral Vein, Percutaneous Approach (ICD-10-PCS; 2018-06-25)
PROC: 0PSC04Z Reposition Right Humeral Head with Internal Fixation Device, Open Approach (ICD-10-PCS; principal; 2018-06-29 08:00)
DX: S42.251A Displaced fracture of greater tuberosity of right humerus, initial encounter for closed fracture (principal); S32.491A Other specified fracture of right acetabulum, initial encounter for closed fracture; S32.501A Unspecified fracture of right pubis, initial encounter for closed fracture; S42.252A Displaced fracture of greater tuberosity of left humerus, initial encounter for closed fracture; K51.90 Ulcerative colitis, unspecified, without complications; D68.52 Prothrombin gene mutation; M80.88XA Other osteoporosis with current pathological fracture, vertebra(e), initial encounter for fracture; M50.222 Other cervical disc displacement at C5-C6 level; W06.XXXA Fall from bed, initial encounter; Y92.013 Bedroom of single-family (private) house as the place of occurrence of the external cause; D64.9 Anemia, unspecified; J06.9 Acute upper respiratory infection, unspecified; R09.02 Hypoxemia; R91.1 Solitary pulmonary nodule; B97.29 Other coronavirus as the cause of diseases classified elsewhere; Z86.711 Personal history of pulmonary embolism; J45.909 Unspecified asthma, uncomplicated; T38.0X5A Adverse effect of glucocorticoids and synthetic analogues, initial encounter; Z79.01 Long term (current) use of anticoagulants
CPT/HCPCS: 82435-PO; 82565-PO; 82947-PO; 84132-PO; 84295-PO; 84484-ER; 84520-PO; 85014-ER; 96374; 97110-GO; 97162-GP; 97164-GP; 97166-GO; 97530-GO; 97530-GP; 97535-GO; A9585; C1713; C1762; J0171; J0690; J1100; J1170; J1644; J1650; J1885; J2001; J2270; J2370; J2405; J2704; J2795; J3010; P9016; Q9967

== ENCOUNTER 2018-07-01 11:00 | Inpatient (IN) | payer OTHER ==
[2018-07-01] MEDS ORDERED: ALBUTEROL 60 PUFFS/8 GM MDI IH PRN (15:20)
[2018-07-01] MEDS: GABAPENTIN 300 MG CAP PO SCH ×2 (16:32→22:08)
--- NOTE | 2018-07-01 17:09 | GHP ---
[f rep st] HISTORY AND PHYSICAL POST ADMISSION PHYSICIAN EVALUATION AND REHABILITATION TREATMENT PLAN DATE OF ADMISSION: 07/01/2018 DATE OF EVALUATION: 07/01/2018 REFERRING FACILITY: [facility] REFERRING PHYSICIAN: Derrick Curran MD IMPAIRMENT GROUP: [id number] DATE OF ONSET: 06/19/2018 REHABILITATION DIAGNOSIS: Multiple fractures. ETIOLOGIC DIAGNOSIS: Spinal cord plus multiple fractures/amputation. 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 He came to the hospital with severe pain. He was diagnosed with central cord syndrome with C4-5 and C5-6 spinal stenoses and a C5-6 disk herniation. He also suffered a right acetabular fracture, a right humerus fracture and a minimally displaced left proximal humerus fracture. He had surgical repair of the right humerus. He has conservative treatment of the other fractures with strict nonweightbearing status of the right lower extremity most likely for 3 months and with nonweightbearing status, but range of motion at the elbow, wrist , and fingers approved for his bilateral upper extremities. He was also noted to have T4-5 and L4 compression fractures, which appeared chronic. During his hospitalization, he had hypoxemia and an elevated white count. He was diagnosed with a coronavirus upper respiratory infection. He had anemia and leukocytosis. He was ultimately medically stabilized and ready for inpatient rehabilitation. X-RAY AND LABORATORY DATA: In the hospital, he had multiple imaging studies, which showed fractures as described. He had anemia with hemoglobin and hematocrit stabilized for the last 2 days prior to his discharge at 7.5 for the hemoglobin and 25 for the hematocrit. He developed thrombocytosis with a platelet count of 566 on 07/01/2018. White count improved from 17.12 on 2018, to 12.93 on 07/01/2018. There was hypokalemia, which resolved, otherwise renal function and electrolytes were normal. He was found to have iron deficiency and treated with ferrous sulfate. His vitamin D level was borderline low at 30.1 and treated with oral vitamin D. TSH, testosterone and PTH were normal. He had a normal urinalysis. He was negative for influenza A or B by PCR. Stool occult blood was negative x3. His respiratory panel PCR nasal swab was positive for coronavirus. PRECAUTIONS: He is a fall risk and he has orthopedic precautions as discussed above. ACTIVE COMORBIDITIES: He has no active tier 1, tier 2 or tier 3 comorbidities. PAST MEDICAL HISTORY: 1. Ulcerative colitis for which he was on high-dose corticosteroids for 8 to 10 years. 2. Pulmonary embolus and prothrombin gene mutation. 3. Osteoporosis, which he was not aware of prior to his injury. PAST SURGICAL HISTORY: He has had a colectomy. He has had repair of a fracture in his left hand many years ago. PREHOSPITAL MEDICATIONS: 1. Dabigatran 75 mg p.o. twice daily. 2. Acetaminophen 650 mg p.o. q.6 hours p.r.n. 3. Albuterol 1 to 2 puffs q.4 hours p.r.n. 4. Multivitamin 1 p.o. daily. ADMISSION MEDICATIONS: 1. Acetaminophen 1000 mg q.8 hours. 2. Albuterol 1 to 2 puffs q.4 hours p.r.n. 3. Cholecalciferol 5000 units p.o. daily. 4. Dabigatran 75 mg p.o. b.i.d. 5. Ferrous sulfate 325 mg p.o. daily. 6. Gabapentin 300 mg p.o. t.i.d. 7. Lidocaine patch daily. 8. Multivitamin p.o. daily. 9. Oxycodone 5 to 10 mg p.o. q.4 hours p.r.n. ALLERGIES: No known drug allergies. SOCIAL HISTORY: He is . He lives with his . He has a daughter. 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 He is a nonsmoker. FAMILY HISTORY: Noncontributory. REVIEW OF SYSTEMS: He reports considerable improvement in pain after surgical fixation of the right humerus and he has had much reduced opiate use since that was done. He has tingling in his arms, which he finds annoying but not particularly distressing. He typically has to urinate several times through the night and day. He also has to empty his ileostomy at times through the night. He has been sleeping well. His upper respiratory infection symptoms are completely resolved. There was no head congestion, sore throat, runny nose , or cough. He has no dyspnea. There is no chest pain or palpitations. There is no abdominal pain, nausea, or vomiting. Otherwise, a 10-point review of systems was negative. PHYSICAL EXAMINATION: VITAL SIGNS: Not yet available in the chart. This morning in the hospital, his blood pressure was 111/56, his heart rate was 93, his respiratory rate was 12, his oxygen saturation was 93% on room air, temperature was 37.1 degrees centigrade, and his weight was 88.5 kg for a body mass index of 23.7. GENERAL: This is a well-nourished, well-developed man lying in bed, dressed in street clothes, cooperative and in no acute distress. HEENT: Extraocular movements are intact. Pupils are equal, round, and reactive to light. Mucous membranes are moist. Dentition is in good condition. There is no oropharyngeal erythema or exudates. There is no posterior oropharyngeal mucus. He has an uncrowded airway, Mallampati class 1. NECK: Supple. HEART: There is a regular rate and rhythm with no murmurs, rubs, or gallops. LUNGS: Clear to auscultation bilaterally. ABDOMEN: Soft, nontender, nondistended with normoactive bowel sounds. He has an ileostomy in place with no leakage and no surrounding erythema. EXTREMITIES: There is no cyanosis, clubbing, or edema. Radial and dorsalis pedis pulses are 2+ bilaterally. NEUROLOGIC: He is alert and oriented x3. Cranial nerves 2 through 12 are grossly intact. There does not appear to be focal weakness though full testing of the arms was not done due to weightbearing restriction. His hand tire groover are normal. Similarly, full motor testing of the lower extremities was not done due to weightbearing restriction. CURRENT LEVEL OF FUNCTION PER THE PREADMISSION SCREEN: He was on a regular diet with regular texture. Grooming required setup to minimal assist and was done seated. Bathing required maximal assist. Upper body dressing required maximal assist and cues. Lower body dressing required moderate assist with verbal cues. Toileting required minimal assist for ostomy care. Bed mobility required minimal assist and verbal cues for supine to sit with the head of the bed elevated. Transfers required minimal assist for [id number] and 2-person minimal assist to transfer to chair. Seated balance was independent and standing balance required minimal assist. He had reduced endurance. He was able to stand for 1 minute on his left lower extremity. He was able to propel a wheelchair 240 feet. Cognition and communication were normal. IMPRESSION: This is a 38-year-old man with severe osteoporosis due to chronic corticosteroid use for ulcerative colitis who fell out of bed and suffered fractures to the right humerus, left humerus and right acetabulum. He also has spinal stenosis with a C5-6 disk herniation and a central cord syndrome. He is limited to strict nonweightbearing on the right lower extremity and to nonweightbearing of the bilateral upper extremities, though he can do range of motion at the elbows, wrists and fingers. He has a right upper extremity immobilizer and he is not allowed to externally rotate at all in the right upper extremity. He has had a colectomy for the ulcerative colitis and no longer on any medications for it. He has a history of pulmonary embolus with a prothrombin gene mutation that was managed with enoxaparin at treatment dose while in the hospital. Upon discharge, dabigatran is resumed. He has had considerable pain relief since his surgical fixation of the right upper extremity. His goal is to complete a rehabilitation stay and then return home if possible with support of his family and supportive services. He has 8 external stairs to enter the home so it is unclear whether he will be able to return home or need an alternate disposition. He will have therapy with physical therapy and occupational therapy for 90 minutes per day for each discipline on 5 to 7 days of the week. His expected duration of stay is 7 to 10 days. It is expected that upon discharge, he will benefit from home health services including nursing, social work, occupational therapy, and physical therapy. PLAN: 1. Debility with strict nonweightbearing on the right lower extremity and nonweightbearing bilateral upper extremities, though range of motion outside of the shoulder is allowed. PT and OT to optimize mobility and activities of daily living to the [id number] independence level. 2. Multiple fractures. He will likely be nonweightbearing on the right lower extremity for 3 months. Weightbearing status on the upper extremities will be advanced as he follows up with Orthopedic Surgery. He has pain control with oxycodone, which appears to be adequate. 3. Central cord syndrome. He may require surgical decompression of the cervical spine. The plan is for him to follow up with neurosurgery, Dr. Dukes , in approximately 2 weeks to evaluate this further. Continue gabapentin for treatment of neuropathic pain, though potentially this can be tapered or discontinued if the neuropathic symptoms are not too bothersome. 4. Osteoporosis, which is clearly severe, given the level of his fractures from a fall out of bed. Continue cholecalciferol. Evaluation has included normal testosterone and normal PTH. He will follow up with Endocrinology after his discharge to initiate medications for osteoporosis. 5. Iron-deficiency anemia with Hemoccult negative x3. Continue ferrous sulfate 325 mg daily. We will check CBC in the morning to ensure that he is not having any blood loss. 6. Leukocytosis has been improving over 2 days. Unclear etiology. Initially, it may have been related to his viral infection. Again, we will repeat CBC to evaluate. 7. History of pulmonary embolus with prothrombin gene mutation. Continue dabigatran. Presumably, albuterol may help with any hypoxia. He has not used oxygen in the past 24 to 36 hours. He will be monitored. He will have oxygen and albuterol as needed. 8. Prophylaxis. Dabigatran will suffice for prophylaxis against deep venous thrombosis. 9. Followup. He is to see neurosurgeon, Dr. Dukes, in approximately 2 weeks, which should be toward the first week of July. He is to see orthopedic surgeon , Dr. Nelson, in approximately 2 weeks also. He will follow up with Endocrinology , Dr. Tano Mathew. He will need to establish with a primary care provider as well. /[id number]/MODL MTDD
[2018-07-01] MEDS: oxyCODONE IR 5 MG TAB PO PRN ×2 (18:12→22:09)
[2018-07-01] MEDS: DABIGATRAN ETEXILATE MESYL 75 MG CAP PO SCH (20:24)
[2018-07-01] MEDS ORDERED: PATCH REMOVAL 1 EA PATCH TD SCH (21:00)
[2018-07-01] MEDS: ACETAMINOPHEN 500 MG TAB PO SCH (22:08)
[2018-07-02] MEDS: oxyCODONE IR 5 MG TAB PO PRN ×6 (02:13→20:46)
[2018-07-02] MEDS: ACETAMINOPHEN 500 MG TAB PO SCH ×3 (06:19→22:02)
[2018-07-02] MEDS: CHOLECALCIFEROL VIT D3 2,000 UNITS TAB/CAP PO SCH (08:23)
[2018-07-02] MEDS: DABIGATRAN ETEXILATE MESYL 75 MG CAP PO SCH ×2 (08:24→22:02)
[2018-07-02] MEDS: FERROUS SULFATE 325 MG TAB PO SCH (08:25)
[2018-07-02] MEDS: GABAPENTIN 300 MG CAP PO SCH ×3 (08:26→22:02)
[2018-07-02] MEDS: MULTIVITAMINS 1 EACH TAB PO SCH (08:26)
[2018-07-02] MEDS ORDERED: LIDOCAINE 4%/MENTHOL 1% PATCH TD SCH (09:00)
[2018-07-02 09:13] LABS: PLATELET COUNT 738 10^3/uL (150-400)
--- NOTE | 2018-07-02 11:33 | HOSPPROG ---
Hospitalist Progress Note Assessment/Plan: * s/p fall with R acetabular fracture and bilateral humerus fractures * cont PT/OT * Central cord syndrome * will follow up with NSG regarding possible decompression * gabapentin for neuropathic pain * severe osteoporosis * cont vitamin D * f/u with endocrine * h/o ulcerative colitis s/o ileostomy * Iron def anemia * cont iron * hg better today * mild leukocytosis * stable * h/0 PE/prothrombin gene mutation * pradaxa Subjective: no new comlaints. doing well with rehab this morning. eating. BM's ml through ileostomy Objective: Vital Signs Temp Pulse Resp BP Pulse Ox 36.8 C 85 16 106/65 94 07/02/18 06:19 07/02/18 06:19 07/02/18 06:19 07/02/18 06:19 07/02/18 06:19 Laboratory Results 07/02/18 06:15 07/01/18 07/02/18 07/03/18 05:59 05:59 05:59 Intake Total 690 622 Output Total 725 275 Balance -35 347 - Physical Exam Constitutional: no apparent distress, appears nourished, not in pain Eyes: anicteric sclera, EOMI Ears, Nose, Mouth, Throat: moist mucous membranes Cardiovascular: regular rate and rhythym Respiratory: no respiratory distress, no rales or rhonchi, clear to auscultation Gastrointestinal: other (ileostomy) Skin: warm Neurologic: AAOx3 Psychiatric: interacting appropriately, not anxious, not encephalopathic, thought process linear ICD10 Worksheet Patient Problems: Problems Problem Status Onset Fever Acute
[2018-07-03] MEDS: oxyCODONE IR 5 MG TAB PO PRN ×5 (01:14→20:58)
[2018-07-03] MEDS: ACETAMINOPHEN 500 MG TAB PO SCH ×3 (07:11→20:58)
[2018-07-03] MEDS: CHOLECALCIFEROL VIT D3 2,000 UNITS TAB/CAP PO SCH (08:13)
[2018-07-03] MEDS: DABIGATRAN ETEXILATE MESYL 75 MG CAP PO SCH ×2 (08:13→20:58)
[2018-07-03] MEDS: FERROUS SULFATE 325 MG TAB PO SCH (08:14)
[2018-07-03] MEDS: GABAPENTIN 300 MG CAP PO SCH ×3 (08:15→20:58)
[2018-07-03] MEDS: MULTIVITAMINS 1 EACH TAB PO SCH (08:15)
--- NOTE | 2018-07-03 10:06 | SOAPPROG ---
SOAP Progress Note Assessment/Plan: Assessment/Plan: Mr. Briggs is a 38 y/o male with h/o UC s/p colectomy who had a fall resulting in multiple fractures. Found to have osteoporosis. 1. Debility with strict nonweightbearing on the right lower extremity and nonweightbearing bilateral upper extremities, though range of motion outside of the shoulder is allowed. PT and OT to optimize mobility and activities of daily living to the [id number] independence level. 2. Multiple fractures to include Right Acetabular and Bilateral Humerus Fractures - Sling all times RUE except hygiene. ROM of elbow, wrist, hand ok for RUE/ LUE otherwise NWB BUE - Strict NWB for RLE - He has pain control with oxycodone - monitor pain and adjust as needed. 3. Central cord syndrome? he may require surgical decompression of the cervical spine. - The plan is for him to follow up with neurosurgery, Dr. Dukes, in approximately 2 weeks to evaluate this further. - Continue gabapentin for treatment of neuropathic pain, though potentially this can be tapered or discontinued if the neuropathic symptoms are not too bothersome. 4. Osteoporosis, which is clearly severe, given the level of his fractures from a fall out of bed. - Continue cholecalciferol. Evaluation has included normal testosterone and normal PTH. - Follow up with Endocrinology after his discharge to initiate medications for osteoporosis. 5. Iron-deficiency anemia with Hemoccult negative x3. Continue ferrous sulfate 325 mg daily. - CBC has been stable 6. Leukocytosis - Shown improvement/stability. Pt not demonstrating any evidence of infection at current time. Continue to monitor clinical course 7. History of pulmonary embolus with prothrombin gene mutation. - Continue Pradaxa - O2 and Albuterol PRN 8. Prophylaxis. Dabigatran will suffice for prophylaxis against deep venous thrombosis. 9. Followup. - Neurosurgeon, Dr. Dukes, in approximately 2 weeks, which should be toward the first week of July. - Orthopedic surgeon, Dr. Nelson, in approximately 2 weeks also. - Endocrinology and apparently, a referral has been made to Dr. Tano Mathew. - He will need to establish with a primary care provider as well. 07/03/18 10:07 Subjective: Doing well today - overall no significant concerns if staying on top of his pain medications. Has been happy with the service and support from Rehab. Having pretty good ostomy output - no abdominal pain. no changes in sensation of his BUE. Pain being well controlled. no fevers/chills Objective: Vital Signs Temp Pulse Resp BP Pulse Ox 98.2 F 85 16 105/67 93 07/03/18 07:16 07/03/18 07:16 07/03/18 07:16 07/03/18 07:16 07/03/18 07:16 Laboratory Results 07/02/18 06:15 07/02/18 07/03/18 07/04/18 05:59 05:59 05:59 Intake Total 690 2121 784 Output Total 725 1775 Balance -35 346 784 Physical Exam - Physical Exam General Appearance: alert, other (Very pleasant - interactive) EENT: PERRL/EOMI Respiratory: lungs clear Cardiac/Chest: regular rate, rhythm Abdomen: non-tender, soft, other (Ostomy in place - No leaking around the bag. non distended) Skin: normal color Extremities: other (No LE swelling noted. He is wearing Sling of the RUE) Neuro/Psych: other (Good sesnation of the R UE in the hands. no color changes. ) ICD10 Worksheet Patient Problems: Problems Problem Status Onset Fever Acute
[2018-07-04] MEDS: oxyCODONE IR 5 MG TAB PO PRN ×3 (03:10→21:09)
[2018-07-04] MEDS: ACETAMINOPHEN 500 MG TAB PO SCH ×3 (06:03→21:09)
[2018-07-04] MEDS: GABAPENTIN 300 MG CAP PO SCH ×3 (08:09→21:09)
[2018-07-04] MEDS: FERROUS SULFATE 325 MG TAB PO SCH (08:09)
[2018-07-04] MEDS: CHOLECALCIFEROL VIT D3 2,000 UNITS TAB/CAP PO SCH (08:10)
[2018-07-04] MEDS: DABIGATRAN ETEXILATE MESYL 75 MG CAP PO SCH ×2 (08:10→21:09)
[2018-07-04] MEDS: MULTIVITAMINS 1 EACH TAB PO SCH (08:10)
--- NOTE | 2018-07-04 09:42 | SOAPPROG ---
SOAP Progress Note Assessment/Plan: Assessment/Plan: Mr. Briggs is a 38 y/o male with h/o UC s/p colectomy who had a fall from bed resulting in multiple fractures. Found to have osteoporosis during the workup 1. Debility with strict nonweightbearing on the right lower extremity and nonweightbearing bilateral upper extremities, though range of motion outside of the shoulder is allowed. PT and OT to optimize mobility and activities of daily living to the [id number] independence level. 2. Multiple fractures to include Right Acetabular and Bilateral Humerus Fractures - Sling all times RUE except hygiene. ROM of elbow, wrist, hand ok for RUE/ LUE otherwise NWB BUE - Strict NWB for RLE - He has pain control with oxycodone - Pain is currently well managed. Will taper as able and as pain improves despite activity 3. Central cord syndrome? he may require surgical decompression of the cervical spine. - The plan is for him to follow up with neurosurgery, Dr. Dukes, in approximately 2 weeks to evaluate this further. - Continue gabapentin for treatment of neuropathic pain, though potentially this can be tapered or discontinued if the neuropathic symptoms are not too bothersome. 4. Osteoporosis, which is clearly severe, given the level of his fractures from a fall out of bed. - Continue cholecalciferol. Evaluation has included normal testosterone and normal PTH. - Follow up with Endocrinology after his discharge to initiate medications for osteoporosis. 5. Iron-deficiency anemia with Hemoccult negative x3. Continue ferrous sulfate 325 mg daily. - CBC has been stable 6. Leukocytosis - Shown improvement/stability. Pt not demonstrating any evidence of infection at current time. Continue to monitor clinical course 7. History of pulmonary embolus with prothrombin gene mutation. - Continue Pradaxa - O2 and Albuterol PRN 8. Prophylaxis. Dabigatran will suffice for prophylaxis against deep venous thrombosis. Will d/c the SCD's per patient request. 9. Followup. - Neurosurgeon, Dr. Dukes, in approximately 2 weeks, which should be toward the first week of July. - Orthopedic surgeon, Dr. Nelson, in approximately 2 weeks . - Endocrinology - a referral has been made to Dr. Tano Mathew. - He will need to establish with a primary care provider as well. 07/04/18 09:38 Subjective: Feeling better - Sleeping well. Pain is well controlled as long as stays on top of the pain regimen. Better Ostomy output last night after concentrating on increase fluid intake yesterday. No new neurologic changes. Per RN/Pt pictures - right shoulder incision appears well approximated. Pt without fevers/chills or other infectious signs/symptoms Objective: Vital Signs Temp Pulse Resp BP Pulse Ox 98.2 F 86 16 111/68 95 07/04/18 08:00 07/04/18 08:00 07/04/18 08:00 07/04/18 08:00 07/04/18 08:00 Laboratory Results 07/02/18 06:15 07/03/18 07/04/18 07/05/18 05:59 05:59 05:59 Intake Total 2121 5214 990 Output Total 1775 3460 375 Balance 346 1754 615 Physical Exam - Physical Exam General Appearance: alert, no apparent distress EENT: PERRL/EOMI Respiratory: lungs clear, normal breath sounds Cardiac/Chest: regular rate, rhythm Abdomen: non-tender, soft, other (Ostomy bag in place - no peridrainage/redness) Skin: normal color, other (Reviewed picture of the right shoulder incision (RN had just redressed) No areas of redness, no drainage - well approximated. RN to keep monitoring ) Extremities: other (No LE edema. ) Neuro/Psych: alert, normal mood/affect ICD10 Worksheet Patient Problems: Problems Problem Status Onset Fever Acute
--- NOTE | 2018-07-04 12:16 | PDOREHIP ---
Admission [facility] - Admission - 3 Day Assessment Period Admission Date/Day 1: 07/01/18 Day 2: 07/02/18 Day 3: 07/03/18 - Active Diagnoses Comorbidities and Co-existing Conditions at Admission: 63629. None of the Above - Skin Conditions Unhealed Pressure Ulcer (1 or more/Stage 1 or >)-Admission: 0. No # Stage 1 Pressure Ulcers-Admission: 0 # Stage 2 Pressure Ulcers-Admission: 0 # Stage 3 Pressure Ulcers-Admission: 0 # Stage 4 Pressure Ulcers-Admission: 0 # Unstageable Pressure Ulcers (Non-remove Dress)-Admission: 0 # Unstageable Pressure Ulcers (Slough/Eschar)-Admission: 0 # Unstageable Pressure Ulcers (Deep Tissue Injury)-Admission: 0
[2018-07-05] MEDS: oxyCODONE IR 5 MG TAB PO PRN ×2 (02:41→15:13)
[2018-07-05] MEDS: ACETAMINOPHEN 500 MG TAB PO SCH ×3 (05:35→21:02)
[2018-07-05] MEDS: GABAPENTIN 300 MG CAP PO SCH ×3 (08:16→21:02)
[2018-07-05] MEDS: DABIGATRAN ETEXILATE MESYL 75 MG CAP PO SCH ×2 (08:16→21:02)
[2018-07-05] MEDS: CHOLECALCIFEROL VIT D3 2,000 UNITS TAB/CAP PO SCH (08:16)
[2018-07-05] MEDS: MULTIVITAMINS 1 EACH TAB PO SCH (08:16)
[2018-07-05] MEDS: FERROUS SULFATE 325 MG TAB PO SCH (08:16)
--- NOTE | 2018-07-05 10:12 | SOAPPROG ---
SOAP Progress Note Assessment/Plan: Assessment: Assessment/Plan: Mr. Briggs is a 38 y/o male with h/o UC s/p colectomy who had a fall from bed resulting in multiple fractures. Found to have osteoporosis during the workup. Debility with strict nonweightbearing on the right lower extremity and nonweightbearing bilateral upper extremities, though range of motion outside of the shoulder is allowed. * Initial functional independence measure is 81 on 07/05/2018. Needs assistance for setup of sliding board but otherwise transferring independently. Sit to stand requires moderate assistance. He is able to self propel a wheelchair independently on level surfaces but needs contact guard assist for up and down ramps. Upper body dressing is done with setup and supervision. Lower body dressing is done seated then needs contact guard assist to stand to hike his pants. Grooming and hygiene are done with modified independence toileting with modified independence bathing requires setup and minimal assist for the transfer and then bathes with supervision. * Continue PT and OT to optimize mobility and activities of daily living to the [id number] independence level. Multiple fractures to include Right Acetabular and Bilateral Humerus Fractures - Sling all times RUE except hygiene. ROM of elbow, wrist, hand ok for RUE/ LUE otherwise NWB BUE - Strict NWB for RLE - He has pain control with oxycodone - Pain is currently well managed. Will taper as able and as pain improves despite activity Central cord syndrome? he may require surgical decompression of the cervical spine. - The plan is for him to follow up with neurosurgery, Dr. Dukes, in approximately 2 weeks to evaluate this further. - Continue gabapentin for treatment of neuropathic pain, though potentially this can be tapered or discontinued if the neuropathic symptoms are not too bothersome. Osteoporosis, which is clearly severe, given the level of his fractures from a fall out of bed. - Continue cholecalciferol. Evaluation has included normal testosterone and normal PTH. - Follow up with Endocrinology after his discharge to initiate medications for osteoporosis. Iron-deficiency anemia with Hemoccult negative x3. Continue ferrous sulfate 325 mg daily. - CBC has been stable Leukocytosis - Shown improvement/stability. Pt not demonstrating any evidence of infection at current time. Continue to monitor clinical course History of pulmonary embolus with prothrombin gene mutation. - Continue dabigatran - O2 and Albuterol PRN Prophylaxis. Dabigatran will suffice for prophylaxis against deep venous thrombosis. Will d/c the SCD's per patient request. DISPOSITION: Attended staffing, 15 min, 07/05/2018. Discussed with case management, dietitian, nursing, PT, OT. 8 steps to enter the house. He may not be able to go home until weight-bearing is restored. Considering options with pillowcase cutter including discharge to long term facility. Discharge date set for 11/30/2018. Will have home PT and OT. Followup. - Neurosurgeon, Dr. Dukes, in approximately 2 weeks, which should be toward the first week of July. - Orthopedic surgeon, Dr. Nelson, in approximately 2 weeks . - Endocrinology - a referral has been made to Dr. Tano Mathew. - He will need to establish with a primary care provider as well. 07/05/18 10:58 Subjective: No complaints. Pain is adequately controlled. Sleeping well. He asks the nurses to awaken him every 4 hr so that if he needs it he can take pain medicine. No cough or dyspnea, no fevers or chills. Objective: Vital Signs Temp Pulse Resp BP Pulse Ox 36.4 C 71 16 102/65 96 07/05/18 05:37 07/05/18 05:37 07/05/18 05:48 07/05/18 05:37 07/05/18 05:37 Laboratory Results 07/05/18 06:00 07/04/18 07/05/18 07/06/18 05:59 05:59 05:59 Intake Total 5214 3663 Output Total 3460 3225 200 Balance 1754 438 -200 - Time Spent With Patient Time Spent With Patient: Greater than 35 min floor time today, including more than 50% of time in coordination of care during staffing meeting, and counseling patient. Physical Exam - Physical Exam General Appearance: WD/WN, alert, no apparent distress Respiratory: No respiratory distress, No accessory muscle use Cardiac/Chest: No edema Skin: normal color, warm/dry Neuro/Psych: no motor/sensory deficits, alert, normal mood/affect, oriented x 3 ICD10 Worksheet Patient Problems: Problems Problem Status Onset Fever Acute
[2018-07-06] MEDS: ACETAMINOPHEN 500 MG TAB PO SCH ×3 (06:42→21:04)
[2018-07-06] MEDS: GABAPENTIN 300 MG CAP PO SCH ×3 (09:39→21:04)
[2018-07-06] MEDS: MULTIVITAMINS 1 EACH TAB PO SCH (09:39)
[2018-07-06] MEDS: FERROUS SULFATE 325 MG TAB PO SCH (09:39)
[2018-07-06] MEDS: DABIGATRAN ETEXILATE MESYL 75 MG CAP PO SCH ×2 (09:40→21:04)
[2018-07-06] MEDS: CHOLECALCIFEROL VIT D3 2,000 UNITS TAB/CAP PO SCH (09:40)
--- NOTE | 2018-07-06 14:14 | SOAPPROG ---
SOAP Progress Note Assessment/Plan: Assessment: Assessment/Plan: Mr. Briggs is a 38 y/o male with h/o UC s/p colectomy who had a fall from bed resulting in multiple fractures. Found to have osteoporosis during the workup. Debility with strict nonweightbearing on the right lower extremity and nonweightbearing bilateral upper extremities, though range of motion outside of the shoulder is allowed. * Initial functional independence measure is 81 on 07/05/2018. Needs assistance for setup of sliding board but otherwise transferring independently. Sit to stand requires moderate assistance. He is able to self propel a wheelchair independently on level surfaces but needs contact guard assist for up and down ramps. Upper body dressing is done with setup and supervision. Lower body dressing is done seated then needs contact guard assist to stand to hike his pants. Grooming and hygiene are done with modified independence toileting with modified independence bathing requires setup and minimal assist for the transfer and then bathes with supervision. * Continue PT and OT to optimize mobility and activities of daily living to the [id number] independence level. Multiple fractures to include Right Acetabular and Bilateral Humerus Fractures - Sling all times RUE except hygiene. ROM of elbow, wrist, hand ok for RUE/ LUE otherwise NWB BUE - Strict NWB for RLE - He has pain control with oxycodone - Pain is currently well managed. Will taper as able and as pain improves despite activity Central cord syndrome? he may require surgical decompression of the cervical spine. - The plan is for him to follow up with neurosurgery, Dr. Dukes, in approximately 2 weeks to evaluate this further. - Continue gabapentin for treatment of neuropathic pain, though potentially this can be tapered or discontinued if the neuropathic symptoms are not too bothersome. Osteoporosis, which is clearly severe, given the level of his fractures from a fall out of bed. - Continue cholecalciferol. Evaluation has included normal testosterone and normal PTH. - Follow up with Endocrinology after his discharge to initiate medications for osteoporosis. Iron-deficiency anemia with Hemoccult negative x3. Continue ferrous sulfate 325 mg daily. * Blood counts drifted down 07/05/2018. Repeat CBC 07/08/2018 Thrombocytosis. Platelets higher on 07/05/2018. Most likely reactive. Recheck 07/08/2018. Leukocytosis - Shown improvement/stability. Pt not demonstrating any evidence of infection at current time. Continue to monitor clinical course * Resolved on CBC 3 . History of pulmonary embolus with prothrombin gene mutation. - Continue dabigatran - O2 and Albuterol PRN Prophylaxis. Dabigatran will suffice for prophylaxis against deep venous thrombosis. Will d/c the SCD's per patient request. DISPOSITION: Attended staffing, 15 min, 07/05/2018. Discussed with case management, dietitian, nursing, PT, OT. 8 steps to enter the house. He may not be able to go home until weight-bearing is restored. Will [facility]. Will continue PT and OT. Followup. - Neurosurgeon, Dr. Dukes, in approximately 2 weeks, which should be toward the first week of July. - Orthopedic surgeon, Dr. Nelson, in approximately 2 weeks . - Endocrinology - a referral has been made to Dr. Tano Mathew. - He will need to establish with a primary care provider as well. 07/06/18 14:10 Subjective: No complaints. Pain is adequately controlled. Typically has pain later in the afternoon after day of therapy. No cough or dyspnea, no fever chills. Sleeping well. Objective: Vital Signs Temp Pulse Resp BP Pulse Ox 36.8 C 90 15 102/65 97 07/06/18 08:09 07/06/18 08:09 07/06/18 08:09 07/06/18 08:09 07/06/18 08:09 Laboratory Results 07/05/18 06:00 07/05/18 07/06/18 07/07/18 05:59 05:59 05:59 Intake Total 3663 2780 1100 Output Total 3225 3100 Balance 438 -320 1100 Physical Exam - Physical Exam General Appearance: WD/WN, alert, no apparent distress Respiratory: No respiratory distress, No accessory muscle use Cardiac/Chest: edema (Trace to 1+ left pretibial greater than right pretibial) Skin: normal color, warm/dry Neuro/Psych: alert, normal mood/affect, oriented x 3 ICD10 Worksheet Patient Problems: Problems Problem Status Onset Fever Acute
[2018-07-06] MEDS: oxyCODONE IR 5 MG TAB PO PRN (23:08)
[2018-07-07] MEDS: ACETAMINOPHEN 500 MG TAB PO SCH ×3 (06:13→21:06)
[2018-07-07] MEDS: GABAPENTIN 300 MG CAP PO SCH ×3 (08:38→21:07)
[2018-07-07] MEDS: MULTIVITAMINS 1 EACH TAB PO SCH (08:39)
[2018-07-07] MEDS: DABIGATRAN ETEXILATE MESYL 75 MG CAP PO SCH ×2 (08:39→21:07)
[2018-07-07] MEDS: FERROUS SULFATE 325 MG TAB PO SCH (08:39)
[2018-07-07] MEDS: CHOLECALCIFEROL VIT D3 2,000 UNITS TAB/CAP PO SCH (08:39)
--- NOTE | 2018-07-07 13:38 | SOAPPROG ---
PAM Progress Note Assessment/Plan: Assessment: Assessment/Plan: Mr. Briggs is a 38 y/o male with h/o UC s/p colectomy who had a fall from bed resulting in multiple fractures. Found to have osteoporosis during the workup. Debility with strict nonweightbearing on the right lower extremity and nonweightbearing bilateral upper extremities, though range of motion outside of the shoulder is allowed. * Initial functional independence measure is 81 on 07/05/2018. Needs assistance for setup of sliding board but otherwise transferring independently. Sit to stand requires moderate assistance. He is able to self propel a wheelchair independently on level surfaces but needs contact guard assist for up and down ramps. Upper body dressing is done with setup and supervision. Lower body dressing is done seated then needs contact guard assist to stand to hike his pants. Grooming and hygiene are done with modified independence toileting with modified independence bathing requires setup and minimal assist for the transfer and then bathes with supervision. * Continue PT and OT to optimize mobility and activities of daily living to the [id number] independence level. Multiple fractures to include Right Acetabular and Bilateral Humerus Fractures - Sling all times RUE except hygiene. ROM of elbow, wrist, hand ok for RUE/ LUE otherwise NWB BUE - Strict NWB for RLE - He has pain control with oxycodone - Pain is currently well managed. Using once or twice per day for the past 3 days, most recently at bedtime on .. Central cord syndrome? he may require surgical decompression of the cervical spine. - The plan is for him to follow up with neurosurgery, Dr. Dukes, in approximately 2 weeks to evaluate this further. - Continue gabapentin for treatment of neuropathic pain, though potentially this can be tapered or discontinued if the neuropathic symptoms are not too bothersome. Osteoporosis, which is clearly severe, given the level of his fractures from a fall out of bed. - Continue cholecalciferol. Evaluation has included normal testosterone and normal PTH. - Follow up with Endocrinology after his discharge to initiate medications for osteoporosis. Iron-deficiency anemia with Hemoccult negative x3. Continue ferrous sulfate 325 mg daily. * Blood counts drifted down 07/05/2018. Repeat CBC 07/08/2018 Thrombocytosis. Platelets higher on 07/05/2018. Most likely reactive. Recheck 07/08/2018. Leukocytosis - Shown improvement/stability. Pt not demonstrating any evidence of infection at current time. Continue to monitor clinical course * Resolved on CBC 3 . History of pulmonary embolus with prothrombin gene mutation. - Continue dabigatran - O2 and Albuterol PRN Prophylaxis. Dabigatran will suffice for prophylaxis against deep venous thrombosis. Will d/c the SCD's per patient request. DISPOSITION: Attended staffing, 15 min, 07/05/2018. Discussed with case management, dietitian, nursing, PT, OT. 8 steps to enter the house. He may not be able to go home until weight-bearing is restored. [facility] Will continue PT and OT. Followup. - Neurosurgeon, Dr. Dukes, in approximately 2 weeks, which should be toward the first week of July. - Orthopedic surgeon, Dr. Nelson, in approximately 2 weeks . - Endocrinology - a referral has been made to Dr. Tano Mathew. - He will need to establish with a primary care provider as well. 07/07/18 13:36 Subjective: No complaints. Slept well. Not in pain. No cough or dyspnea, no fevers or chills. Objective: Vital Signs Temp Pulse Resp BP Pulse Ox 36.6 C 90 16 108/69 96 07/07/18 08:00 07/07/18 08:00 07/07/18 08:00 07/07/18 08:00 07/07/18 08:00 Laboratory Results 07/05/18 06:00 07/06/18 07/07/18 07/08/18 05:59 05:59 05:59 Intake Total 2780 1580 1380 Output Total 3100 500 200 Balance -320 1080 1180 Physical Exam - Physical Exam General Appearance: WD/WN, alert, no apparent distress Respiratory: normal breath sounds, No crackles, No rhonchi, No wheezing Cardiac/Chest: regular rate, rhythm, No edema, No diastolic murmur, No systolic murmur Skin: normal color, warm/dry Neuro/Psych: no motor/sensory deficits, alert, normal mood/affect, oriented x 3 ICD10 Worksheet Patient Problems: Problems Problem Status Onset Fever Acute
--- NOTE | 2018-07-07 13:45 | PDOREHIP ---
Admission [facility] - Admission - 3 Day Assessment Period Admission Date/Day 1: 07/01/18 Day 2: 07/02/18 Day 3: 07/03/18 - Active Diagnoses Comorbidities and Co-existing Conditions at Admission: 56698. None of the Above Discharge [facility] - Discharge - 3 Day Assessment Period 2 Days Prior to Anticipated Discharge Date: 07/06/18 1 Day Prior to Anticipated Discharge Date: 07/07/18 Anticipated Discharge Date: 07/08/18 - Discharge Skin Conditions Unhealed Pressure Ulcer (1 or more/Stage 1 or >)-Discharge: 0. No # Stage 1 Pressure Ulcers-Discharge: 0 # Stage 2 Pressure Ulcers-Discharge: 0 # of These Stage 2 Pressure Ulcers Present on Admission: 0 # Stage 3 Pressure Ulcers-Discharge: 0 # of These Stage 3 Pressure Ulcers Present on Admission: 0 # Stage 4 Pressure Ulcers-Discharge: 0 # of These Stage 4 Pressure Ulcers Present on Admission: 0 # Unstageable Pressure Ulcers (Non-remove Dress)-Discharge: 0 # These Unstageable Pressure Ulcers (NRD)-Present on Admit: 0 # Unstageable Pressure Ulcers (Slough/Eschar)-Discharge: 0 # These Unstageable Pressure Ulcers(Slough) Present on Admit: 0 # Unstageable Pressure Ulcers (Deep Tissue Injury)-Discharge: 0 # These Unstageable Pressure Ulcers (DTI) Present on Admit: 0
[2018-07-07] MEDS: oxyCODONE IR 5 MG TAB PO PRN (19:30)
[2018-07-08] MEDS: oxyCODONE IR 5 MG TAB PO PRN ×2 (04:20→17:44)
[2018-07-08] MEDS: ACETAMINOPHEN 500 MG TAB PO SCH ×2 (06:15→14:12)
[2018-07-08 06:24] VITALS: BP 107/67
[2018-07-08] MEDS: GABAPENTIN 300 MG CAP PO SCH ×2 (08:20→17:23)
[2018-07-08] MEDS: CHOLECALCIFEROL VIT D3 2,000 UNITS TAB/CAP PO SCH (08:20)
[2018-07-08] MEDS: FERROUS SULFATE 325 MG TAB PO SCH (08:20)
[2018-07-08] MEDS: MULTIVITAMINS 1 EACH TAB PO SCH (08:20)
[2018-07-08] MEDS: DABIGATRAN ETEXILATE MESYL 75 MG CAP PO SCH (08:20)
[2018-07-08 10:51] LABS: PLATELET COUNT 1166 10^3/uL (150-400)
--- NOTE | 2018-07-08 18:50 | GDS ---
[f rep st] DISCHARGE SUMMARY ADMISSION DIAGNOSIS: Multiple fractures and central cord syndrome. DISCHARGE DIAGNOSIS: Multiple fractures and central cord syndrome. OTHER DISCHARGE DIAGNOSES: 1. Osteoporosis. 2. Iron-deficiency anemia. 3. Thrombocytosis. COMPLICATIONS: There were none. CONSULTATIONS: There was a brief discussion with hematology, Dr. Ochoa. PROCEDURES: There were none. HISTORY AND HOSPITAL COURSE: This patient presented to [facility] on 06/19/2018. 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 There was a right acetabular fracture, a right humerus fracture, and a minimally displaced proximal left humerus fracture. He had surgical repair of the right humerus. He is nonweightbearing of the right lower extremity, most likely for 3 months, and nonweightbearing but range of motion allowed at the elbow, wrists, and fingers for the bilateral upper extremities. He had upper extremity weakness and was diagnosed with a central cord syndrome. Imaging showed a C4-5 and C5-6 spinal stenosis and a C5-6 disk herniation. There were also T4-5 and L4 compression fractures which appeared chronic. Osteoporosis is most likely due to prolonged use of corticosteroids for ulcerative colitis. These were discontinued after his colectomy. He did well in rehabilitation, but ultimately, his independent function was limited by his weightbearing status. He was able to transfer using a sliding board independently after setup of the board. He needed moderate assistance for [id number] transfers. He could self-propel a wheelchair independently on level surfaces but needed contact guard assist for going up and down ramps. He did upper body dressing with setup and supervision and lower body dressing seated needing contact guard assist to stand to hike his pants. He did grooming and hygiene with modified independence and toileting with modified independence. Bathing required setup, and he required minimal assist for bath transfer. His was trained in providing the assistance that he needs. Regarding central cord syndrome, given that he also had nonweightbearing of the upper extremities, this did not affect his ability to function. His plan was to follow up with Neurosurgery. He was taking gabapentin for neuropathic pain. He had iron deficiency anemia. He was treated with ferrous sulfate 325 mg daily. He had improvement in his anemia. On the day of discharge hemoglobin and hematocrit are 9.4 and 32. On 07/05/2018, they were 8.3 and 28.8. He had thrombocytosis. Platelet count increased during his stay from 738 on to 995 on 07/05 and 1166 on 07/08. Thrombocytosis was discussed with gas station service attendant/oncologist, Dr. Ochoa, who regarded it as being reactive to iron deficiency, as well as recent trauma. Plan is to follow up with Dr. Ochoa in 1 to 2 weeks. He had a history of pulmonary embolus due to a prothrombin gene mutation. He was continued on dabigatran during his rehabilitation stay. The dabigatran is also sufficient to prevent thrombotic complications from the thrombocytosis. DISPOSITION: [facility] for continued rehabilitation. CONDITION: Good. ACTIVITY: Ad rudy but with weightbearing restrictions, nonweightbearing on the right lower extremity and nonweightbearing bilateral upper extremities, but range of motion is permitted from the elbows distally. MEDICATIONS UPON DISCHARGE: 1. Acetaminophen 1000 mg p.o. q.8 hours. 2. Albuterol 1 to 2 puffs q.4 hours p.r.n. 3. Cholecalciferol 5000 units p.o. daily. 4. Dabigatran 75 mg p.o. b.i.d. 5. Ferrous sulfate 325 mg p.o. daily. 6. Gabapentin 300 mg p.o. t.i.d. 7. Multivitamin daily. 8. Oxycodone 5 to 10 mg p.o. q.4 hours p.r.n. ISSUES TO BE ADDRESSED AT FOLLOWUP: 1. Mobility and activities of daily living. He will continue therapies at the [facility]. He can follow up with his primary care physician regarding his progress. 2. Multiple fractures. He will follow up with orthopedic surgeon, Miles Nelson MD. 3. Central cord syndrome. He has followup planned with neurosurgeon, Dr. Dukes. 4. Osteoporosis. Continue vitamin D supplement. Follow up with veteran appeals reviewer Dr. Tano Mathew. 5. Thrombocytosis, likely reactive. Follow up with gas station service attendant/oncologist, Dr. Elias Ochoa. Greater than 30 min were spent on this discharge, including medication reconciliation, coordination of care and counseling patient. Patient was seen and examined on the day of discharge. Copy requested to: Lacho Dukes /[id number]/MODL MTDD
== END 2018-07-08 19:40 | DRG 945 ==
LOC: BREH 14:40
PROVIDERS: ADMIT Internal Medicine Hospice and Palliative Medicine; ATTEND Internal Medicine Hospice and Palliative Medicine
DX: S14.129D Central cord syndrome at unspecified level of cervical spinal cord, subsequent encounter (principal); S13 Dislocation and sprain of joints and ligaments at neck level; M48.32 Traumatic spondylopathy, cervical region; M80.88XD Other osteoporosis with current pathological fracture, vertebra(e), subsequent encounter for fracture with routine healing; M80.851D Other osteoporosis with current pathological fracture, right femur, subsequent encounter for fracture with routine healing; M80.8 Other osteoporosis with current pathological fracture; M80.822 Other osteoporosis with current pathological fracture, left humerus; W06.XXXD Fall from bed, subsequent encounter; T38.0X5D Adverse effect of glucocorticoids and synthetic analogues, subsequent encounter; D68.52 Prothrombin gene mutation; K51.90 Ulcerative colitis, unspecified, without complications; D50.9 Iron deficiency anemia, unspecified; D72.829 Elevated white blood cell count, unspecified; D47.3 Essential (hemorrhagic) thrombocythemia; Z93.2 Ileostomy status; Z86.711 Personal history of pulmonary embolism; Z90.49 Acquired absence of other specified parts of digestive tract
CPT/HCPCS: 97110-GO; 97110-GP; 97140-GO; 97140-GP; 97162-GP; 97166-GO; 97530-GO; 97530-GP; 97535-GO; 97542-GP

== ENCOUNTER 2018-08-11 19:21 | Emergency (ER) | payer OTHER ==
--- NOTE | 2018-08-11 19:30 | EDPHY ---
HPI/HX/ROS/PE/MDM - Data Points Imaging: Discussed imaging studies w/ weight caller Radiologist Narrative: CHIEF COMPLAINT: Seizure HPI: The patient is an anticoagulated (Pradaxa) 38-year-old male with a history of ulcerative colitis and hypercoagulability status post a PE approximately 10 years ago. He arrives via EMS following a witnessed seizure at his rehabilitation facility. This lasted about 10 minutes, and the patient was quite postictal following. He does not remember any events prior to waking in the ambulance. He denies any history of seizures. The patient currently resides at [facility] as he is recovering from multiple fractures and central cord syndrome secondary to a fall at home about two months ago. He has osteoporosis secondary to chronic prednisone use for ulcerative colitis (60-80mg daily for 2 years). He now has a colostomy, and has not been on steroids for the past year. He denies any unusual activities or recent medication changes. He denies any other recent trauma or illness. REVIEW OF SYSTEMS: A comprehensive 10 system review of systems is otherwise negative aside from elements mentioned in the history of present illness and medical decision making. PMH: Includes prothrombin gene mutation, history of pulmonary embolus. History of ulcerative colitis status post 2 colectomies with current colostomy. 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 . Lives in [place]. PHYSICAL EXAM: General:Patient is alert, in no acute distress. ENT:Eyes are normal to inspection. ENT inspection normal. Neck: Normal inspection. Full range of motion. Respiratory:No respiratory distress. Breath sounds normal bilaterally. Cardiovascular: Regular rate and rhythm. Strong peripheral pulses. Normal cap refill. Abdomen:The abdomen is nontender to palpation. There are no peritoneal signs. There are normal bowel sounds. Back: Normal to inspection. No tenderness to palpation. Skin: Normal color. No rash. Warm and dry. Extremities: Normal appearance. Full range of motion. Neuro: Oriented x3. Normal motor function. Normal sensory function. (Elias Sheldon) ED Course: This anticoagulated 38 year old male with history of osteoporosis secondary to chronic steroid use, hypercoagulability, and ulcerative colitis s/p colectomy/ colostomy presents following a witnessed seizure lasting about [address] head. Plan for EKG, labs including CBC, chemistries. EKG was ordered and interpreted by myself. Please see [employer] system for official reading. 20:[address] Catherine, radiologist. CT head shows 3 mm extra-axial fluid collection along the posterior superior right frontal convexity. Reassessed patient. Discussed imaging results. Plan for MRI brain for further evaluation. (Elias Sheldon) MDM: 2307: Updated patient about MRI results. There has been no further seizure activity here in emergency room. He is neurologically intact here. I do recommend he follows up with Neurology on outpatient basis he is comfortable this plan. Understands to follow up with neurology to review his scans/ct/mri. Return precautions discussed with him and his at bedside. They are comfortable this. (Alex Avina) - Data Points Imaging Results: Imaging Impressions Head CT 08/11/18 19:32 Impression: There is a 3 mm extra-axial fluid collection along the posterior superior right frontal convexity. Findings were discussed with Elias Sheldon MD at 20:12, on 08/11/2018. If there is further clinical concern regarding the patient's symptoms, MR imaging of the brain (with and without contrast) is suggested, if not otherwise contraindicated. Brain MRI 08/11/18 20:23 Impression: Mild asymmetric dural thickening along the superior posterior right frontal convexity, with no unusual leptomeningeal enhancement, mass effect , or etiology for the patient's seizure. Consider follow-up with CT reevaluation , as clinically directed. Findings were discussed with Alex Avina MD at 22:43, on 08/11/2018. Laboratory Results: Laboratory Results 08/11/18 19:28 08/11/18 19:28 08/11/18 08/11/18 19:28 19:28 WBC 6.27 10^3/uL 10^3/uL (3.80-9.50) RBC 5.24 10^6/uL 10^6/uL (4.40-6.38) Hgb 13.5 g/dL L g/dL (13.7-17.5) Hct 43.1 % % (40.0-51.0) MCV 82.3 fL fL (81.5-99.8) MCH 25.8 pg L pg (27.9-34.1) MCHC 31.3 g/dL L g/dL (32.4-36.7) RDW 16.8 % H % (11.5-15.2) Plt Count 330 10^3/uL 10^3/uL (150-400) MPV 9.9 fL fL (8.7-11.7) Neut % (Auto) 32.9 % L % (39.3-74.2) Lymph % (Auto) 52.5 % H % (15.0-45.0) Cocke % (Auto) 10.8 % % (4.5-13.0) Eos % (Auto) 2.4 % % (0.6-7.6) Baso % (Auto) 0.6 % % (0.3-1.7) Nucleat RBC Rel Count 0.0 % % (0.0-0.2) Absolute Neuts (auto) 2.06 10^3/uL 10^3/uL (1.70-6.50) Absolute Lymphs (auto) 3.29 10^3/uL H 10^3/uL (1.00-3.00) Absolute Monos (auto) 0.68 10^3/uL 10^3/uL (0.30-0.80) Absolute Eos (auto) 0.15 10^3/uL 10^3/uL (0.03-0.40) Absolute Basos (auto) 0.04 10^3/uL 10^3/uL (0.02-0.10) Absolute Nucleated RBC 0.00 10^3/uL 10^3/uL (0-0.01) Immature Gran % 0.8 % % (0.0-1.1) Immature Gran # 0.05 10^3/uL 10^3/uL (0.00-0.10) Sodium 137 mEq/L mEq/L (135-145) Potassium 4.2 mEq/L mEq/L (3.5-5.2) Chloride 103 mEq/L mEq/L (97-110) Carbon Dioxide 17 mEq/l L mEq/l (22-31) Anion Gap 17 mEq/L H mEq/L (6-14) BUN 12 mg/dL mg/dL (7-23) Creatinine 0.7 mg/dL mg/dL (0.7-1.3) Estimated GFR > 60 Glucose 98 mg/dL mg/dL (70-100) Calcium 9.9 mg/dL mg/dL (8.5-10.4) Medications Given: Discontinued Medications Sodium Chloride (Ns) 500 mls @ 0 mls/hr IV EDNOW ONE; Wide Open PRN Reason: Protocol Stop: 08/11/18 19:33 Last Admin: 08/11/18 19:37 Dose: 500 mls Oxycodone HCl (Oxycodone Ir) 10 mg PO EDNOW ONE Stop: 08/11/18 20:41 Last Admin: 08/11/18 20:42 Dose: 10 mg General Time Seen by Provider: 08/11/18 19:25 Initial Vital Signs: Initial Vital Signs Temperature (C) 37.2 C 08/11/18 19:24 Heart Rate 108 H 08/11/18 19:24 Respiratory Rate 20 08/11/18 19:24 Blood Pressure 134/76 H 08/11/18 19:24 O2 Sat (%) 95 08/11/18 19:24 O2 Delivery Mode Room Air Allergies/Adverse Reactions: No Known Allergies Allergy (Verified 08/11/18 19:25) Home Medications: Medication Instructions Recorded Dabigatran Etexilate Mesylate 75 mg PO BID 01/11/18 [Pradaxa] Albuterol [Proventil Inhaler HFA 1 - 2 puffs IH Q4H PRN 06/19/18 (*)] Multivitamins [Multivitamin (*)] 1 each PO DAILY 06/19/18 Acetaminophen [Tylenol ES 500 mg 1,000 mg PO Q8HRS tab 07/01/18 (*)] Cholecalciferol Vit D3 [Vitamin D3 5,000 units PO DAILY each 07/01/18 2000 units tab (OTC)] oxyCODONE IR [Oxycodone Ir (*)] 5 - 10 mg PO Q4HRS PRN tab 07/01/18 Ferrous Sulfate [Ferrous Sulf 325 325 mg PO DAILY #0 tab 07/07/18 MG (*)] Melatonin 08/11/18 Departure - Departure Disposition: Home, Routine, Self-Care Clinical Impression: First time seizure Condition: Good Instructions: Epilepsy (ED) Additional Instructions: Follow-up with a neurologist within 1 week. Return to the emergency department for headache, recurrent seizure, altered mental status, numbness, weakness or tingling. Referrals: Patient,NotPresent [Unknown] - As per Instructions Tony Vaughn MD [Medical Doctor] - As per Instructions Report Scribed for: Elias Sheldon Report Scribed by: Sandra Singh Date of Report: 08/11/18 Time of Report: 19:26 Physician Review and Approval Statement: Portions of this note were transcribed by an ED scribe. I personally performed the history, physical exam, and medical decision making; and confirm the accuracy of the information in the transcribed note.
[2018-08-11] MEDS ORDERED: NS 500 ML IV ONE (19:32)
[2018-08-11 19:57] LABS: PLATELET COUNT 330 10^3/uL (150-400)
[2018-08-11] MEDS ORDERED: oxyCODONE IR 5 MG TAB ONE (20:40)
[2018-08-11] MEDS ORDERED: oxyCODONE IR 5 MG TAB PO ONE (20:40)
[2018-08-11] MEDS ORDERED: GADOBUTROL 10 ML VIAL IVP ONE (21:35)
--- NOTE | 2018-08-11 22:06 | CPEKG ---
Test Reason : OPEN Blood Pressure : / mmHG Vent. Rate : 100 BPM Atrial Rate : 099 BPM P-R Int : 136 ms QRS Dur : 094 ms QT Int : 332 ms P-R-T Axes : 046 -30 037 degrees QTc Int : 429 ms Sinus tachycardia Left axis deviation Confirmed by Elias Sheldon ([id number]) on 08/11/2018 10:06:02 PM Referred By: Elias Sheldon Confirmed By:Elias Sheldon
[2018-08-11 23:22] VITALS: BP 121/76
== END 2018-08-11 23:22 | disposition home or self-care (01) ==
LOC: EDUNIT#
DX: G40.909 Epilepsy, unspecified, not intractable, without status epilepticus (principal); E86.9 Volume depletion, unspecified; Z86.711 Personal history of pulmonary embolism
CPT/HCPCS: A9585

== ENCOUNTER → 2018-08-24 | Outpatient (CLI) | payer OTHER ==
--- NOTE | 2018-08-30 14:53 | CPEEG ---
[f rep st] ELECTROENCEPHALOGRAM DATE OF STUDY: INTERPRETATION: This EEG is abnormal due to a recorded right temporal subclinical, electrographic seizure discharge. 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 These abnormal findings were directly discussed with the patient's primary neurologist, Dr. Elian Shane. REPORT: This EEG contains 10 Hz alpha activity over the posterior head regions. The background activity was normal and symmetric. There was no abnormal activation at rest, during photic stimulation or hyperventilation. The patient became drowsy and fell asleep during the study. During drowsiness and light sleep, the patient had onset of a right temporal subclinical, electrographic seizure beginning at epoch 89. The seizure began with abrupt onset rhythmic theta frequency at 7 hertz over the right temporal leads. As the seizure progressed, there was evolution of amplitude and topography. The right ocular lead became more involved as the seizure progressed, as well as the right frontal polar and midline frontal leads. The seizure stayed localized over the right temporal region. There was evolution of morphology as well, as the discharge progressed it became more monomorphic and saw toothed in shape. There was abrupt offset at epoch 91. The total duration of the seizure was 14 seconds. The digital video accompanying the discharge was reviewed. There were no obvious clinical manifestations. He appeared to be in behavioral sleep during the seizure. In addition, there were no interictal epileptiform (spikes or sharp waves) discharges during the recording. These findings were discussed with Dr. Shane, the treating neurologist. A repeat 4-hour video EEG may be helpful in the future to review and confirm these abnormalities. /[id number]/MODL MTDD
== END ==
LOC: FCPNEURO 13:33
PROVIDERS: ATTEND Psychiatry & Neurology Neurology
DX: G40.909 Epilepsy, unspecified, not intractable, without status epilepticus (principal)